=== PATIENT | male | born 1955 | race Caucasian/White ===

== ENCOUNTER 2020-07-03 09:55 | Outpatient (REF) | payer BC, SELFPAY ==
--- NOTE | 2020-07-03 | CT_ITS ---
EXAMINATION: CT SINUS WITHOUT CONTRAST CLINICAL INFORMATION: Sinonasal polyps. COMPARISON: None. TECHNIQUE: 2 mm thin axial and reformatted 2 mm sagittal and coronal images of sinuses were obtained without contrast. This CT examination was performed using dose optimization techniques as appropriate, variously including the following: *Automated exposure control *Adjustment of mA and/or kV according to patient size (this includes techniques or standardized protocols for targeted exams where dose is matched to indication/reason for exam; i.e. extremities or head) *Use of iterative reconstruction technique DLP: 120 mGy-cm. FINDINGS: There is diffuse mucoperiosteal thickening involving bilateral frontal, ethmoid, sphenoid and maxillary sinuses. Bilateral ostiomeatal complexes are patent in spite of mild mucoperiosteal thickening. The frontoethmoidal recesses are widely patent as well. The bony sinus ledbetter are intact. The cribriform plate and lamina papyracea are normal. The bony orbits, optic globe and optic space bilaterally appears normal. NASAL CAVITY/NASOPHARYNX: The nasal cavity is clear. There is mild deviation of nasal to the right without bony spur. The turbinates are symmetrical. The nasopharynx is symmetric. ADDITIONAL RELEVANT FINDINGS: No periapical disease is seen. Bilateral TM joints are symmetrical and normal. The mastoid sinuses are well aerated and clear. No abnormality seen in the external auditory canal. No acute intracranial process seen on this limited exam. CT/CT sinus wo con IMPRESSION: Chronic pansinusitis without bony involvement. The nasal cavity area is widely patent in spite of mild deviation of nasal septum to the left with a tiny bony spur. The turbinates are symmetrical.
== END 2020-07-03 09:56 | disposition home or self-care (01) ==
LOC: HO.CT 09:55
PROVIDERS: PCP Internal Medicine; Visit Provider Otolaryngology
DX: J33.9 Nasal polyp, unspecified (principal)
CPT/HCPCS: 70486

== ENCOUNTER 2021-03-04 10:19 | Outpatient (REF) | payer BC, SELFPAY ==
[2021-03-04 10:24] LABS: MANUAL DIFF FLAG NO
[2021-03-04 10:56] LABS: Basophils Absolute Auto 0.1 X10*3/uL (0.0-0.2); Basophils Percent Auto 0.8 % (0-2); Eosinophils Absolute Auto 0.2 X10*3/uL (0.0-0.4); Eosinophils Percent Auto 1.8 % (0-4); Hematocrit 49.3 % (42-52); Hemoglobin 16.6 g/dl (14.0-18.0); Imm Gran Abs Auto 0.04 X10*3/uL (0.00-0.03); Imm Gran Pct Auto 0.5 % (0.0-0.4); Lymphocytes Absolute Auto 3.2 X10*3/uL (1.2-4.9); Lymphocytes Percent Auto 38.2 % (20-40); Mean Corpuscular HGB Conc 33.7 g/dl (31.0-36.0); Mean Corpuscular Hemoglobin 29.9 pg (27.0-33.0); Mean Corpuscular Volume 88.8 fL (80-98); Mean Platelet Volume 8.6 fL (9.4-12.4); Monocytes Absolute Auto 0.6 X10*3/uL (0.1-1.2); Neutrophils Absolute Auto 4.3 X10*3/uL (2.0-8.3); Neutrophils Percent Auto 51.7 % (45-73); Platelet Count 289 X10*3/uL (160-400); Red Blood Count 5.55 X10*6/uL (4.60-5.80); Red Cell Distribution Width 13.1 % (11.0-16.0); White Blood Count 8.4 X10*3/uL (4.8-10.8)
[2021-03-04 11:17] LABS: Appearance Urine CLEAR; Color Urine YELLOW; Glucose Urine UA NEG (NEG); Leukocyte Esterase Urine NEG (NEG); Nitrite Urine NEG (NEG); PH 6.5 (5.0-8.0); Urine Blood NEG (NEG); Urine Ketones NEG (NEG); Urine Protein NEG (NEG-TRACE)
[2021-03-04 11:49] LABS: Alanine Aminotransferase 47 U/L (0-40); Albumin Level 4.4 g/dL (3.5-5.0); Alkaline Phosphatase 70 U/L (39-117); Anion Gap 12 (12-20); Aspartate Amino Transferase 22 U/L (5-37); Bilirubin Total 0.5 mg/dL (0.0-1.0); Blood Urea Nitrogen 21 mg/dL (9-16); Calcium 8.9 mg/dL (8.4-10.2); Carbon Dioxide 25 mmol/L (22-29); Chloride 109 mmol/L (96-108); Cholesterol 182 mg/dL; Estimated Glomerular Filt Rate > 60; Glucose Fasting 95 mg/dL (60-99); HDL Cholesterol 39 mg/dL; LDL Cholesterol Calculated 112 mg/dl; Potassium 4.3 mmol/L (3.3-5.1); Sodium 142 mmol/L (135-145); Total Protein 6.5 g/dL (6.5-8.0); Triglycerides 157 mg/dL
[2021-03-04 11:50] LABS: Estimated Average Glucose 105 mg/dL; Hemoglobin A1c % 5.3 %
[2021-03-04 11:58] LABS: Microalbum/Creatinine Ratio Ur 7.9 ug/mg cr
[2021-03-04 12:52] LABS: Reflex LDLD? No
== END 2021-03-04 10:20 | disposition home or self-care (01) ==
LOC: HO.LNP 10:19
PROVIDERS: Visit Provider Internal Medicine
DX: Z00.00 Encounter for general adult medical examination without abnormal findings (principal); R73.03 Prediabetes; E78.00 Pure hypercholesterolemia, unspecified
CPT/HCPCS: 80053; 80061; 81003; 82043; 83036; 85025

== ENCOUNTER 2021-07-16 10:23 | Day surgery (SDC) | payer BC, SELFPAY ==
[2021-07-11 10:03] VITALS: BMI 31.6
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
[2021-07-16 10:15] VITALS: BP 164/97; PULSE 82; RESP 18; TEMP 36.6; O2SAT 96
[2021-07-16 10:33] VITALS: BP 164/96; PULSE 82; RESP 18; TEMP 36.6; O2SAT 96
[2021-07-16] MEDS: Lactated Ringers 1,000 ML 100 ML IVCONT (10:56)
[2021-07-16 13:48] VITALS: BP 110/72; PULSE 61; RESP 12; TEMP 37.3; O2SAT 96
--- NOTE | 2021-07-16 13:52 | P.BOP_ITS ---
Brief Operative Note Date of Service: 07/16/21 Pre-op diagnosis: Screening Post-op diagnosis: other (Colon polyps) Procedure: Colonoscopy to the cecum with biopsy and removal of polyps Surgeon: Azam Ulloa Anesthesia: MAC Was an Telecommunications Line Installer used for this Procedure?: No Estimated blood loss (mL): 2.0 Pathology: other (A. Polyps at 20cm) Condition: stable Disposition: PACU
[2021-07-16 14:03] VITALS: BP 146/83; PULSE 61; RESP 18; TEMP 36.7; O2SAT 98
--- NOTE | 2021-07-16 14:43 | OP_ITS ---
SURGEON: Azam Ulloa MD INDICATIONS: The patient presents for evaluation of personal history of tubular adenoma of the colon and colorectal cancer screening. Full consent was obtained from him for that, including risks of bleeding and perforation. PREOPERATIVE DIAGNOSIS: POSTOPERATIVE DIAGNOSIS: PROCEDURE PERFORMED: Colonoscopy to cecum with biopsy and removal of polyps. ESTIMATED BLOOD LOSS: COMPLICATIONS: ANESTHESIA: Monitored anesthesia care. ASSISTANTS: SPECIMENS: PREOPERATIVE DIAGNOSES: Colorectal cancer screening and personal history of tubular adenoma of the colon. POSTOPERATIVE DIAGNOSES: Colorectal cancer screening and personal history of tubular adenoma of the colon, small colon polyps, diverticulosis and internal hemorrhoids. DESCRIPTION OF PROCEDURE: The patient was placed in the left lateral decubitus position. The digital rectal exam revealed no abnormalities. The Olympus video pediatric colonoscope was entered into the rectum and advanced easily to the cecum. Once in the cecum I did identify normal-appearing cecal pouch with appendiceal orifice and a normal-appearing ileocecal valve. The entire cecum and ileocecal valve appeared normal. The appendiceal orifice appeared normal. The scope was slowly withdrawn assessing all mucosal surfaces carefully. Preparation was excellent. At 20 cm, were several flat approximately 3-5 mm probable hyperplastic polyps, which were all biopsied and completely removed with cold biopsy forceps. I did not visualize any other polyps, colitis, or angiodysplasia. There was a mild amount of sigmoid diverticulosis. In the rectum, scope was retroflexed visualizing some small internal hemorrhoids, but no other pathology. The rectal mucosa appeared normal. The scope was straightened and withdrawn from the patient. He tolerated the procedure well and was returned to the recovery area in stable condition. IMPRESSION: 1. Small colon polyps, status post biopsy removal. 2. Diverticulosis. 3. Internal hemorrhoids. PLAN: The results of the biopsies will be checked. If these are tubular adenoma, I would recommend a followup colonoscopy in 5 years. If they are all hyperplastic, I would then recommend a followup colonoscopy in 10 years given that his colonoscopy in 2010 and 2015 were negative for adenomas and there was no family history of colon cancer. He did have a small tubular adenoma removed in 2005, but again if these are hyperplastic, I would recommend a followup colonoscopy in 10 years rather than 5 years. MD KIET Mcduffie/INES / [id number]
== END 2021-07-16 14:31 | disposition home or self-care (01) ==
PROVIDERS: PCP Internal Medicine; Visit Provider Internal Medicine
PROC: 0DJD8ZZ Inspection of Lower Intestinal Tract, Via Natural or Artificial Opening Endoscopic (ICD-10-PCS; CPT 45378; principal; 2021-07-16 11:50)
DX: Z12.11 Encounter for screening for malignant neoplasm of colon (principal); Z86.010 Personal history of colon polyps; K63.5 Polyp of colon; K57.30 Diverticulosis of large intestine without perforation or abscess without bleeding; K64.8 Other hemorrhoids; E78.00 Pure hypercholesterolemia, unspecified; F32.9 Major depressive disorder, single episode, unspecified; Z79.899 Other long term (current) drug therapy; Z87.891 Personal history of nicotine dependence
CPT/HCPCS: 45380; 88305

== ENCOUNTER 2022-01-16 12:35 | Outpatient (REF) | payer MEDICARE, OTHER, SELFPAY ==
--- NOTE | ~2022-01-16 | XR_ITS ---
EXAMINATION: XR CHEST 2 VIEWS CLINICAL INFORMATION: Cough. COMPARISON: Radiographs dated 05/19/2019. TECHNIQUE: Frontal and lateral views of the chest were obtained. FINDINGS: The heart, great vessels, pulmonary vasculature and mediastinum are normal. There is mild elevation of the right hemidiaphragm. The lungs show no focal infiltrate, effusion or pneumothorax. There is no acute osseous abnormality. XR/XR chest 2V IMPRESSION: No active cardiopulmonary disease.
== END 2022-01-16 12:36 | disposition home or self-care (01) ==
LOC: HO.XRAY 12:35
PROVIDERS: PCP Internal Medicine; Visit Provider Internal Medicine
DX: R05.3 Chronic cough (principal)
CPT/HCPCS: 71046

== ENCOUNTER → 2022-01-23 11:11 | Outpatient (REF) | payer MEDICARE, OTHER, SELFPAY ==
--- NOTE | 2022-01-23 | HM_ITS ---
TEST PERFORMED: Cardiac event monitoring. ENROLLMENT PERIOD: 01/23/2022, to 02/22/2022; 30 days. REQUESTING PHYSICIAN: Dr. Davis REASON FOR TESTING: Palpitations. FINDINGS: In the above monitoring period, the underlying rhythm was sinus. Rates ranged from 51 to 96 beats per minute. There is evidence of premature atrial as well as ventricular contractions, isolated. No significant runs noted. Several symptoms documented including shortness of breath, racing, fluttering, dizziness at different times. They correlate with PACs and PVCs. CONCLUSION: Study positive for PACs and PVCs and patient's symptoms correlate with the same. Herminio Hunter MD HS/MARIPOSAL / [id number] MTDD
== END ==
LOC: HO.CARD 11:11
PROVIDERS: PCP Internal Medicine; Visit Provider Internal Medicine
DX: R00.2 Palpitations (principal)
CPT/HCPCS: 93270

== ENCOUNTER 2022-03-10 11:34 | Outpatient (REF) | payer MEDICARE, OTHER, SELFPAY ==
[2022-03-10 11:39] LABS: MANUAL DIFF FLAG NO
[2022-03-10 12:09] LABS: Basophils Absolute Auto 0.1 X10*3/uL (0.0-0.2); Basophils Percent Auto 0.8 % (0-2); Eosinophils Absolute Auto 0.2 X10*3/uL (0.0-0.4); Eosinophils Percent Auto 2.2 % (0-4); Hematocrit 48.8 % (42.0-52.0); Hemoglobin 16.3 g/dl (14.0-18.0); Imm Gran Abs Auto 0.07 X10*3/uL (0.00-0.03); Imm Gran Pct Auto 0.8 % (0.0-0.4); Lymphocytes Absolute Auto 3.2 X10*3/uL (1.2-4.9); Lymphocytes Percent Auto 37.6 % (20-40); Mean Corpuscular HGB Conc 33.4 g/dl (31.0-36.0); Mean Corpuscular Hemoglobin 29.6 pg (27.0-33.0); Mean Corpuscular Volume 88.7 fL (80.0-98.0); Mean Platelet Volume 8.6 fL (9.4-12.4); Monocytes Absolute Auto 0.6 X10*3/uL (0.1-1.2); Monocytes Percent Auto 7.3 % (2-11); Neutrophils Absolute Auto 4.3 x10*3/uL (2.0-8.3); Neutrophils Percent Auto 51.3 % (45-73); Platelet Count 269 X10*3/uL (160-400); Red Cell Distribution Width 13.2 % (11.0-16.0); White Blood Count 8.5 X10*3/uL (4.8-10.8)
[2022-03-10 12:15] LABS: Appearance Urine Clear; Color Urine Yellow; Glucose Urine UA Negative (Negative); Leukocyte Esterase Urine Trace (Negative); Nitrite Urine Negative (Negative); PH 6.5 (5.0-9.0); UMIC TRIGGER UA YES; Urine Blood Negative (Negative); Urine Ketones Negative (Negative); Urine Protein Negative (Neg-Trace)
[2022-03-10 12:18] LABS: Bacteria Urine None Seen (None Seen); Hyaline Casts Urine 0-2 /LPF (0-2); RBC Urine 0-2 /HPF (0-2); Squamous Epithelial Cell Urine 0-2 /HPF (0-2); WBC Urine 0-5 /HPF (0-5)
[2022-03-10 12:23] LABS: Estimated Average Glucose 105 mg/dL; Hemoglobin A1c % 5.3 %
[2022-03-10 12:35] LABS: Alanine Aminotransferase 35 U/L (0-40); Albumin Level 4.3 g/dL (3.5-5.0); Alkaline Phosphatase 67 U/L (39-117); Anion Gap 14 (12-20); Aspartate Amino Transferase 20 U/L (5-37); Bilirubin Total 0.5 mg/dL (0.0-1.0); Blood Urea Nitrogen 22 mg/dL (9-16); Calcium 8.9 mg/dL (8.4-10.2); Carbon Dioxide 26 mmol/L (22-29); Chloride 108 mmol/L (96-108); Cholesterol 176 mg/dL; Estimated Glomerular Filt Rate > 60; Glucose Fasting 99 mg/dL (60-99); HDL Cholesterol 37 mg/dL; LDL Cholesterol Calculated 106 mg/dl; Potassium 4.2 mmol/L (3.3-5.1); Sodium 144 mmol/L (135-145); Total Protein 6.4 g/dL (6.5-8.0); Triglycerides 167 mg/dL
[2022-03-10 12:40] LABS: Microalbum/Creatinine Ratio Ur 8.6 ug/mg cr
[2022-03-10 12:50] LABS: PSA,Total (Free>4and<10) 4.06 ng/mL (0.00-4.00)
[2022-03-11 11:07] LABS: Free Prostate Spec Ag 0.9 ng/mL; Percent Free Prostate Spec Ag 20 % (calc) (>25); Prostate Specific Ag Total 4.4 ng/mL (< OR = 4.0)
== END 2022-03-10 11:35 | disposition home or self-care (01) ==
LOC: HO.LNP 11:34
PROVIDERS: Visit Provider Internal Medicine
DX: Z12.5 Encounter for screening for malignant neoplasm of prostate (principal); E78.00 Pure hypercholesterolemia, unspecified; R73.03 Prediabetes
CPT/HCPCS: 80053; 80061; 81001; 81003; 82043; 83036; 84153; 84154; 85025

== ENCOUNTER 2022-04-13 10:52 | Outpatient (REF) | payer MEDICARE, OTHER, SELFPAY ==
[2022-04-13 12:21] LABS: PSA,Total (Free>4and<10) 2.88 ng/mL (0.00-4.00)
== END 2022-04-13 10:53 | disposition home or self-care (01) ==
LOC: HO.LNP 10:52
PROVIDERS: Visit Provider Internal Medicine
DX: Z12.5 Encounter for screening for malignant neoplasm of prostate (principal); R97.20 Elevated prostate specific antigen [PSA]
CPT/HCPCS: 84153

== ENCOUNTER 2022-04-29 12:41 | Outpatient (REF) | payer MEDICARE, OTHER, SELFPAY ==
--- NOTE | ~2022-04-29 | XR_ITS ---
EXAMINATION: XR CHEST CLINICAL INFORMATION: Short of breath COMPARISON: 01/16/2022 TECHNIQUE: 2 views of the chest were obtained. FINDINGS: The lungs are well expanded. There is no focal consolidation, edema, or effusion. No pneumothorax. The cardiomediastinal silhouette is within normal limits. No acute osseous abnormality. XR/XR chest 2V IMPRESSION: Clear lungs.
== END 2022-04-29 12:42 | disposition home or self-care (01) ==
LOC: HO.XRAY 12:41
PROVIDERS: PCP Internal Medicine; Visit Provider Internal Medicine
DX: R06.02 Shortness of breath (principal)
CPT/HCPCS: 71046

== ENCOUNTER → 2022-05-11 09:27 | Outpatient (REF) | payer MEDICARE, OTHER, SELFPAY ==
--- NOTE | 2022-05-11 09:30 | CA_ITS ---
Transthoracic Echocardiogram Patient (Last, First, Middle): Salvatore Blum G Gender: Male Date of : 1955 Age: 67 Procedure Date: 05/11/2022 Procedure Type: Transthoracic Echocardiogram Location: OP Height: 180.34 cm Weight: 99.79 kg BSA: 2.20 m2 Heart Rate: bpm BP: 118 / 75 mmHg Coverstitch Elastic Attacher: EBONY Referring MD: Temo Davis MD Symptoms: R06.02 SOB Study Quality: Fair ECG Rhythm: Sinus Conclusions: - The left ventricular systolic function is normal. The calculated ejection fraction is 67% by biplane method. - There is mild calcification of the aortic valve. - No obvious valvular pathology seen on this study. Findings Left Ventricle Normal left ventricular cavity size. There is mildly increased left ventricular wall thickness. The left ventricular systolic function is normal. The calculated ejection fraction is 67% by biplane method. There is no evidence of regional wall motion abnormalities. Diastolic function is normal for age. LV peak GLS -18.6%. Right Ventricle Normal right ventricular cavity size and systolic function. Atria Both atria are normal in size. Aortic Valve The aortic valve was not well visualized. There is mild calcification of the aortic valve. There is no aortic valve stenosis. There is no aortic valve regurgitation. Mitral Valve The mitral valve appears normal. There is no mitral valve regurgitation. There is no mitral valve stenosis. Pulmonic Valve The pulmonic valve is likely normal. Tricuspid Valve There is trace tricuspid valve regurgitation. There is no evidence of pulmonary hypertension. Great Vessels The asc aorta is normal in size. Venous The inferior vena cava is normal in size and collapses greater than 50% with inspiration. Pericardium/Pleural There is no evidence of pericardial effusion. Prior Study Comparison No change compared to prior study dated: 03/04/2016. Recommendations, Care & Conclusions No obvious valvular pathology seen on this study. Measurements 2D Linear Measurements IVSd: 1.21 0.6-0.9/0.6-1.0 cm LVIDd: 4.91 3.9-5.3/4.2-5.9 cm LVIDd Index: 2.23 2.4-3.2/2.2-3.1 cm/m2 LVIDs: 2.69 2.0-3.6 cm LVPWd: 1.24 0.7-1.1 cm LA Diam: 3.40 2.7-3.8/3.0-4.0 cm LAIDs Index: 1.55 1.5-2.3 cm/m2 LV Mass: 291.53 67-162/88-224 g LV Mass Index: 132.51 43-95/49-115 g/m2 LVOT Diam: 2.20 3.0+(-)1.3 cm 2D Systolic Function EF 4C: 63.20 >55% EF 2C: 71.00 >55% EF BiP: 67.40 >55% Mitral Valve MV Pk E: 0.72 MV PK A: 0.78 MV Decel Time: 242.00 E/A: 0.90 E'Lateral: 6.42 E'Medial: 6.64 E/E' Med: 10.80 E/E' Lat: 11.20 PHT: 71.00 MVA PHT: 3.10 Decel [place]: 2.96 Aortic Valve AoV Pk Arturo: 1.64 AoV Mn Arturo: 1.12 AoV VTI: 0.33 AoV Pk Grad: 11.00 Aov Mn Grad: 6.00 RAYMOND Cont.VTI: 2.66 LVOT LVOT Pk Arturo: 0.95 LVOT Mn Arturo: 0.63 LVOT VTI: 0.23 LVOT Pk Grad: 4.00 LVOT Mn Grad: 2.00 LVOT Diam: 2.20 LVOT Area: 3.80 Diastolic Function MV Pk E: 0.72 MV Pk A: 0.78 E/A: 0.90 E'Medial: 6.64 E/E' Med: 10.80 E' Laterial: 6.42 E/E' Lat: 11.20 Right Ventricle TAPSE (mm): 26.30 TVS' Arturo: 19.60 Tricuspid Valve TR Pk Arturo: 1.24 TR Pk Grad: 6.00 RA Press: 3.00 RVSP: 9.00 Great Vessels Aorta Sinus of Valsalva: 3.66 2.0-3.[address] [place]: 3.19 1.7-3.4 cm Ao Asc: 3.50 2.1-3.4 cm Updated in Other Vendor System with Status of Final Herminio Hunter MD electronically signed on 05/11/2022 5:01:25 PM with status of Final
== END ==
LOC: HO.CARD 09:27
PROVIDERS: Visit Provider Internal Medicine
DX: R06.02 Shortness of breath (principal)
CPT/HCPCS: 93306; 93356

== ENCOUNTER → 2022-05-27 09:19 | Outpatient (BNVA) | payer MEDICARE, OTHER, SELFPAY | PROVIDERS: PCP Internal Medicine; Visit Provider Internal Medicine Pulmonary Disease | DX: R06.00 Dyspnea, unspecified (principal); G47.33 Obstructive sleep apnea (adult) (pediatric) | CPT/HCPCS: 99202 ==

== ENCOUNTER → 2022-06-02 08:42 | Outpatient (REF) | payer MEDICARE, OTHER, SELFPAY | LOC: HO.SL 08:42 | PROVIDERS: PCP Internal Medicine; Visit Provider Internal Medicine Pulmonary Disease | DX: G47.33 Obstructive sleep apnea (adult) (pediatric) (principal) | CPT/HCPCS: 95806 ==

== ENCOUNTER 2022-06-16 07:50 | Outpatient (REF) | payer MEDICARE, OTHER, SELFPAY ==
--- NOTE | 2022-06-16 13:54 | PFT_ITS ---
INDICATION: Dyspnea. SPIROMETRY: FEV1 to FVC 86% with an FEV1 of 4.48 L, which is 124% predicted; FVC of 5.19 L, which is 106% predicted. No significant response to bronchodilators noted. Maximum voluntary ventilation 134% predicted. LUNG VOLUMES: Total lung capacity 103% predicted with expiratory reserve volume of 49% predicted. DIFFUSION CAPACITY: DLCO 84% predicted. COMPARISONS: None. INTERPRETATION: No obstructive nor restrictive ventilatory defects identified. No significant response to bronchodilators noted and normal maximum voluntary ventilation. Lung volumes are normal except for decrease in the expiratory reserve volume secondary to an elevated BMI. Normal diffusion capacity. No clear explanation for the patient's dyspnea based on these PFTs. Clinical correlation warranted. Mina Torres MD MR/MODLorena / [id number]
== END 2022-06-16 07:51 | disposition home or self-care (01) ==
LOC: HO.RESP 07:50
PROVIDERS: PCP Internal Medicine; Visit Provider Internal Medicine Pulmonary Disease
DX: R06.00 Dyspnea, unspecified (principal); G47.33 Obstructive sleep apnea (adult) (pediatric)
CPT/HCPCS: 94060; 94727; 94729; 99212

== ENCOUNTER 2022-07-24 10:51 | Outpatient (REF) | payer MEDICARE, OTHER, SELFPAY ==
[2022-07-24 11:50] LABS: PSA,Total (Free>4and<10) 3.27 ng/mL (0.00-4.00)
== END 2022-07-24 10:52 | disposition home or self-care (01) ==
LOC: HO.LNP 10:51
PROVIDERS: Visit Provider Internal Medicine
DX: N40.0 Benign prostatic hyperplasia without lower urinary tract symptoms (principal); Z12.5 Encounter for screening for malignant neoplasm of prostate
CPT/HCPCS: 84153

== ENCOUNTER → 2022-09-09 09:08 | Outpatient (BNVA) | payer MEDICARE, OTHER, SELFPAY | PROVIDERS: PCP Internal Medicine; Visit Provider Internal Medicine Pulmonary Disease | DX: G47.33 Obstructive sleep apnea (adult) (pediatric) (principal) | CPT/HCPCS: 99212 ==

== ENCOUNTER 2023-03-18 08:56 | Outpatient (AMB) | payer MEDICARE, OTHER, SELFPAY ==
[2023-03-18 08:58] VITALS: BP 117/67; PULSE 58; O2SAT 94; BMI 31.9
--- NOTE | 2023-03-18 08:58 | MHC.OFFVIS ---
Intake Vital Signs 03/18/23 08:58 Height 5 ft 10 in Weight 222 lb 10.67 oz BMI 31.9 BP 117/67 Blood Pressure Location Lt brachial Position Sitting Pulse 58 Pulse Source Doppler Pulse Oximetry (%) 94 Oxygen Delivery Method Room Air Intake Visit Reasons: COPD Allergies Halothane Allergy (Unknown, Uncoded 02/20/16 00:00) cardiac arrest HPI COPD HPI Details 89year-old gentleman, former 20 pack-year smoker, quit 35 years prior referred for evaluation of intermittent episodes of chest tightness and subjective dyspnea. Patient states that he walks 2 miles every day with no dyspnea on exertion. He complains of chest tightness and subjective dyspnea particularly in the evening. His main concern is early fatigued, daytime sleepiness, and poor quality sleep. He states that his sleep for about 10 hours, however he wakes up feeling tired. He has been observed to snore heavily. After the last office visit he has started to use CPAP with significant improvement in his sleep quality. [facility] Medical History (Updated 05/27/22 @ 09:45 by Dean De La Fuente MD) Cardiac arrest Depression Elevated cholesterol Surgical History H/O colonoscopy Social History Patient Tobacco Use Status: Former Tobacco user Quit Date: 1986 Review of Systems Const Denies daytime sleepiness, Denies excessive sweating, Denies fatigue, Denies fever(s), Denies lethargy, Denies malaise, Denies night sweats, Denies snoring and Denies weight loss Eyes Denies blurry vision and Denies itchy eyes ENT Denies nasal congestion, Denies post nasal drip, Denies sinus pain, Denies sinus pressure and Denies other ( Thrush) Card Denies chest pain, Denies pedal edema, Denies dyspnea, Denies orthopnea and Denies paroxysmal nocturnal dyspnea Resp Denies cough, Denies hemoptysis, Denies excessive phlegm production, Denies dyspnea, Denies snoring and Denies wheezing GI Denies abdominal pain and Denies heartburn Musc Denies myalgias, Denies arthralgias and Denies joint swelling Skin/Breast Denies rash Neuro Denies memory loss and Denies seizure-like activity Psych Denies abnormal sleep pattern, Denies anxiety and Denies memory loss Endo Denies excessive sweating, Denies fatigue and Denies heat intolerance Juan/Lymph Denies easy bruising Aller/Immun Denies itchy eyes, Denies seasonal rhinorrhea and Denies wheezing Physical Exam Vital Signs: Last Vital Signs Pulse 58 03/18/23 08:58 BP 117/67 03/18/23 08:58 Pulse Ox 94 03/18/23 08:58 Oxygen Delivery Method Room Air 03/18/23 08:58 BMI result Body Mass Index 31.9 Const General: no acute distress and alert Nutritional Appearance: not obese Orientation/consciousness: Other orientation findings ( oriented) HEENT Head: Yes atraumatic Eyes General: appearance normal, both eyes and all related structures Sclerae: sclerae normal EOM: EOMs intact bilaterally Neck Neck: Yes supple Lymphatic: no lymphadenopathy noted Resp Effort & Inspection: normal respiratory effort and no use of accessory muscles Auscultation: clear to auscultation bilaterally Cardio Rate: regular rate Rhythm: regular rhythm Heart sounds: no gallops, no murmurs and no rubs Skin General skin exam: other ( warm) Extrem General: No clubbing, No cyanosis and No edema Assessment & Plan Assessment & Plan (1) CAMILLA (obstructive sleep apnea): Code(s): G47.33 - Obstructive sleep apnea (adult) (pediatric) Plan: Reasonable control on current CPAP therapy. Continue current CPAP therapy. Coding Level of Care Code Est Pt Level 3 (76618) Diagnoses CAMILLA (obstructive sleep apnea) G47.33
== END 2023-03-18 09:45 | disposition home or self-care (01) ==
PROVIDERS: PCP Internal Medicine; Visit Provider Internal Medicine Pulmonary Disease
DX: G47.33 Obstructive sleep apnea (adult) (pediatric) (principal)
CPT/HCPCS: 99213

== ENCOUNTER → 2023-03-18 08:56 | Outpatient (BNVA) | payer MEDICARE, OTHER, SELFPAY | PROVIDERS: PCP Internal Medicine; Visit Provider Internal Medicine Pulmonary Disease | DX: G47.33 Obstructive sleep apnea (adult) (pediatric) (principal); R06.00 Dyspnea, unspecified | CPT/HCPCS: 99212 ==

== ENCOUNTER 2023-04-19 11:40 | Outpatient (REF) | payer MEDICARE, OTHER, SELFPAY ==
[2023-04-19 11:47] LABS: MANUAL DIFF FLAG NO
[2023-04-19 12:18] LABS: Basophils Absolute Auto 0.1 X10*3/uL (0.0-0.2); Eosinophils Absolute Auto 0.2 X10*3/uL (0.0-0.4); Eosinophils Percent Auto 2.3 % (0-4); Hematocrit 48.6 % (42.0-52.0); Hemoglobin 16.2 g/dl (14.0-18.0); Imm Gran Abs Auto 0.05 X10*3/uL (0.00-0.03); Imm Gran Pct Auto 0.7 % (0.0-0.4); Lymphocytes Percent Auto 40.5 % (20-40); Mean Corpuscular HGB Conc 33.3 g/dl (31.0-36.0); Mean Corpuscular Hemoglobin 29.6 pg (27.0-33.0); Mean Corpuscular Volume 88.7 fL (80.0-98.0); Mean Platelet Volume 8.6 fL (9.4-12.4); Monocytes Absolute Auto 0.6 X10*3/uL (0.1-1.2); Monocytes Percent Auto 8.3 % (2-11); Neutrophils Absolute Auto 3.5 x10*3/uL (2.0-8.3); Neutrophils Percent Auto 47.2 % (45-73); Platelet Count 281 X10*3/uL (160-400); Red Blood Count 5.48 X10*6/uL (4.60-5.80); Red Cell Distribution Width 13.3 % (11.0-16.0); White Blood Count 7.3 X10*3/uL (4.8-10.8)
[2023-04-19 12:21] LABS: Appearance Urine Clear; Color Urine Yellow; Glucose Urine UA Negative (Negative); Leukocyte Esterase Urine Negative (Negative); Nitrite Urine Negative (Negative); Urine Blood Negative (Negative); Urine Ketones Negative (Negative); Urine Protein Negative (Neg-Trace)
[2023-04-19 12:28] LABS: Bacteria Urine None Seen (None Seen); Hyaline Casts Urine 0-2 /LPF (0-2); RBC Urine 0-2 /HPF (0-2); Squamous Epithelial Cell Urine 0-2 /HPF (0-2); WBC Urine 0-5 /HPF (0-5)
[2023-04-19 12:30] LABS: Estimated Average Glucose 105 mg/dL; Hemoglobin A1c % 5.3 % (<6.0)
[2023-04-19 12:49] LABS: Alanine Aminotransferase 34 U/L (0-40); Albumin Level 4.2 g/dL (3.5-5.0); Alkaline Phosphatase 57 U/L (39-117); Anion Gap 14 (12-20); Aspartate Amino Transferase 21 U/L (5-37); Bilirubin Total 0.5 mg/dL (0.0-1.0); Blood Urea Nitrogen 19 mg/dL (9-16); Calcium 8.9 mg/dL (8.4-10.2); Carbon Dioxide 24 mmol/L (22-29); Chloride 107 mmol/L (96-108); Cholesterol 178 mg/dL (<200); Estimated Glomerular Filt Rate > 60; Glucose Fasting 100 mg/dL (60-99); HDL Cholesterol 38 mg/dL (>40); LDL Cholesterol Calculated 109 mg/dL (<100); Sodium 141 mmol/L (135-145); Total Protein 6.7 g/dL (6.5-8.0); Triglycerides 159 mg/dL (<150)
[2023-04-19 12:51] LABS: PSA,Total (Free>4and<10) 3.77 ng/mL (0.00-4.00)
[2023-04-19 12:56] LABS: Creatinine Urine 149.63 mg/dL
== END 2023-04-19 11:41 | disposition home or self-care (01) ==
LOC: HO.LNP 11:40
PROVIDERS: Visit Provider Internal Medicine
DX: Z12.5 Encounter for screening for malignant neoplasm of prostate (principal); R73.03 Prediabetes; E78.00 Pure hypercholesterolemia, unspecified; I10 Essential (primary) hypertension
CPT/HCPCS: 80053; 80061; 81001; 82043; 82570; 83036; 84153; 85025

== ENCOUNTER 2023-06-24 13:28 | Outpatient (REF) | payer MEDICARE, OTHER, SELFPAY ==
--- NOTE | ~2023-06-24 | XR_ITS ---
EXAMINATION: XR CHEST CLINICAL INFORMATION: Bronchitis COMPARISON: 04/29/2022 TECHNIQUE: 2 views of the chest were obtained. FINDINGS: No significant abnormality is noted involving the heart, lungs, mediastinum, bony thorax or soft tissues. XR/XR chest 2V IMPRESSION: Unremarkable examination.
[2023-06-24 14:23] LABS: Influenza A PCR POSITIVE (Negative); Influenza B PCR NEGATIVE (Negative); Resp Syncy Virus RNA Qual PCR NEGATIVE (Negative); SARS COV2 PCR INHOUSE NEGATIVE (Negative)
== END 2023-06-24 13:29 | disposition home or self-care (01) ==
LOC: HO.XRAY 13:28
PROVIDERS: PCP Internal Medicine; Visit Provider Internal Medicine
DX: J40 Bronchitis, not specified as acute or chronic (principal); Z11.52 Encounter for screening for COVID-19; Z20.822 Contact with and (suspected) exposure to COVID-19
CPT/HCPCS: 0241U; 71046

== ENCOUNTER 2024-04-25 10:41 | Outpatient (REF) | payer MEDICARE, OTHER, SELFPAY ==
[2024-04-25 10:50] LABS: MANUAL DIFF FLAG NO
[2024-04-25 12:35] LABS: Appearance Urine Clear; Color Urine Yellow; Glucose Urine UA Negative (Negative); Leukocyte Esterase Urine Negative (Negative); Nitrite Urine Negative (Negative); Specific Gravity - Urine 1.025 (1.005-1.025); Urine Blood Negative (Negative); Urine Ketones Negative (Negative); Urine Protein Negative (Neg-Trace)
[2024-04-25 12:39] LABS: Bacteria Urine None Seen (None Seen); Hyaline Casts Urine 0-2 /LPF (0-2); RBC Urine 0-2 /HPF (0-2); Squamous Epithelial Cell Urine 0-2 /HPF (0-2); WBC Urine 0-5 /HPF (0-5)
[2024-04-25 12:42] LABS: Basophils Absolute Auto 0.1 X10*3/uL (0.0-0.2); Basophils Percent Auto 0.9 % (0-2); Eosinophils Absolute Auto 0.2 X10*3/uL (0.0-0.4); Hematocrit 49.2 % (42.0-52.0); Hemoglobin 16.7 g/dl (14.0-18.0); Imm Gran Abs Auto 0.04 X10*3/uL (0.00-0.03); Imm Gran Pct Auto 0.5 % (0.0-0.4); Lymphocytes Absolute Auto 2.9 X10*3/uL (1.2-4.9); Lymphocytes Percent Auto 37.3 % (20-40); Mean Corpuscular HGB Conc 33.9 g/dl (31.0-36.0); Mean Corpuscular Hemoglobin 30.3 pg (27.0-33.0); Mean Corpuscular Volume 89.1 fL (80.0-98.0); Mean Platelet Volume 8.7 fL (9.4-12.4); Monocytes Absolute Auto 0.6 X10*3/uL (0.1-1.2); Neutrophils Absolute Auto 3.9 x10*3/uL (2.0-8.3); Neutrophils Percent Auto 50.3 % (45-73); Platelet Count 257 X10*3/uL (160-400); Red Blood Count 5.52 X10*6/uL (4.60-5.80); Red Cell Distribution Width 13.7 % (11.0-16.0); White Blood Count 7.7 X10*3/uL (4.8-10.8)
[2024-04-25 12:45] LABS: Estimated Average Glucose 108 mg/dL; Hemoglobin A1C 150.1266 umol/L; Hemoglobin A1c % 5.4 % (<6.0); Total Hemoglobin (HGBA1C) 4280.5411 umol/L
[2024-04-25 12:51] LABS: Alanine Aminotransferase 32 U/L (0-40); Albumin Level 4.3 g/dL (3.5-5.0); Alkaline Phosphatase 67 U/L (39-117); Anion Gap 13 (12-20); Aspartate Amino Transferase 28 U/L (5-37); Bilirubin Total 0.5 mg/dL (0.0-1.0); Blood Urea Nitrogen 22 mg/dL (9-16); Calcium 9.4 mg/dL (8.4-10.2); Carbon Dioxide 25 mmol/L (22-29); Chloride 109 mmol/L (96-108); Cholesterol 169 mg/dL (<200); Estimated Glomerular Filt Rate > 60; Glucose Fasting 92 mg/dL (60-99); HDL Cholesterol 40 mg/dL (>40); LDL Cholesterol Calculated 103 mg/dL (<100); Potassium 4.1 mmol/L (3.3-5.1); Sodium 143 mmol/L (135-145); Total Protein 6.8 g/dL (6.5-8.0); Triglycerides 134 mg/dL (<150)
[2024-04-25 13:07] LABS: Prostate Specific Antigen 4.97 ng/mL (<0.05-4.0)
[2024-04-25 13:26] LABS: Creatinine Urine 123.77 mg/dL
== END 2024-04-25 10:42 | disposition home or self-care (01) ==
LOC: HO.LNP 10:41
PROVIDERS: Visit Provider Internal Medicine
DX: R73.09 Other abnormal glucose (principal); Z12.5 Encounter for screening for malignant neoplasm of prostate; E78.00 Pure hypercholesterolemia, unspecified; I10 Essential (primary) hypertension; N40.0 Benign prostatic hyperplasia without lower urinary tract symptoms
CPT/HCPCS: 80053; 80061; 81001; 82043; 82570; 83036; 84153; 85025

== ENCOUNTER 2024-05-17 07:17 | Outpatient (REF) | payer MEDICARE, OTHER, SELFPAY ==
--- NOTE | ~2024-05-17 | CT_ITS ---
EXAMINATION: CT ABDOMEN AND PELVIS WITH CONTRAST CLINICAL INFORMATION: Abdominal pain. Right flank pain. COMPARISON: None available. TECHNIQUE: Multidetector volumetric images were obtained from the superior aspect of the liver through the pubic symphysis following administration 85 mL of Omnipaque 350 intravenous contrast. Sagittal and coronal reformatted images were obtained on the technologist's workstation. Oral contrast: Yes. This CT examination was performed using dose optimization techniques as appropriate, variously including the following: *Automated exposure control *Adjustment of mA and/or kV according to patient size (this includes techniques or standardized protocols for targeted exams where dose is matched to indication/reason for exam; i.e. extremities or head) *Use of iterative reconstruction technique DLP: 619 mGy-cm. FINDINGS: LUNG BASES: The visualized lung bases are unremarkable. LIVER, GALLBLADDER, AND BILIARY TREE: The liver is normal in size and shape. Parenchymal hypoattenuation, consistent with steatosis. Superior right hepatic cyst measuring up to 2.0 cm. No additional focal hepatic lesion or biliary ductal dilatation is present. The gallbladder is unremarkable with no evidence of radiopaque gallstones, gallbladder wall thickening, or obvious pericholecystic inflammatory changes. PANCREAS: Unremarkable. SPLEEN: Unremarkable. ADRENAL GLANDS: Unremarkable. KIDNEYS AND URETERS: The kidneys are normal in size, shape, and attenuation. No hydronephrosis, hydroureter, or calculi seen. Multiple simple bilateral renal cysts. Findings are not clinically significant, and no dedicated followup imaging is recommended. No perinephric stranding. BLADDER: Unremarkable. GASTROINTESTINAL TRACT: Oral contrast reaches the rectum. Small diverticulum at the second portion of the duodenum without inflammatory change. No small or large bowel obstruction. No bowel wall thickening or inflammatory change. Unremarkable appendix. PERITONEAL CAVITY: No intra-abdominal free air or free fluid. No abscess formation. ABDOMINAL WALL: No significant hernia is appreciated. LYMPH NODES: No lymphadenopathy. VASCULAR: Unremarkable. PELVIC VISCERA: Prominent prostatomegaly with mass effect on the posterior urinary bladder. The prostate measures up to 6.6 x 6.0 x 6.7 cm. OSSEOUS STRUCTURES: Unremarkable. CT/CT abdomen pelvis w IV con IMPRESSION: 1. No acute intra-abdominal or intrapelvic findings to explain the patient's pain. 2. Hepatic steatosis. Right hepatic cyst. No additional hepatic parenchymal lesion or biliary ductal dilatation. 3. Prominent prostatomegaly with mass effect on the posterior urinary bladder. Fleischner guidelines were followed. Electronically signed by: Sarthak Garsia MD 05/18/2024 11:03 AM IRINEO RUFFIN
[2024-05-17] MEDS: Barium Sulfate Oral (Vanilla) 450 ML ORAL.SUSP 900 ML PO (10:51)
[2024-05-17] MEDS: iohexoL 350 MG/ML 100 ML INFUS..BTL 85 ML IV (10:51)
--- OUTSIDE RECORDS SUMMARY | 2024-05-23 16:14 | XMS_ITS ---
Author Organization Temo Davis MD Address [address] [place] [phone] Care Team Providers Care Cat And Dog Bather Name Role Phone Temo Davis Primary Care Provider ALLERGIES Allergen (clinical drug ingredient) Drug/Non Drug Allergy documented on EMR Reaction Allergy Type Onset Date Status hallothane (uncoded) cardiac arrest Allergy Active REASON FOR VISIT CT results per Dr Davis, Accompanied by MEDICATIONS Medication SIG (Take, Route, Frequency, Duration) Notes [...] BY MOUTH EVERY DAY for 90 Active VITAL SIGNS BMI 32.25 kg/m2 05/23/2024 Blood pressure systolic 142 mm Hg 05/23/20 24 Blood pressure diastolic 80 mm Hg 024 Height 70.5 in 05/23/2024 Weight 228 lbs 05/23/2024 Encounters Encounter Location Date Provider Diagnosis Temo Davis MD [address] [place] [phone] 05/23/2024 Temo Davis PAC (premature atrial contraction) I49.1 and Dysthymia F34.1 ASSESSMENTS Encounter Date Diagnosis Assessment Notes Treatment Notes Treatment Clinical Notes 05/23/2024 PAC (premature atrial contraction) (ICD-10 - I49.1) patient verbalized understanding of the medication and directions for use, has done well on metoprolol but makes him too sleepy 05/23/2024 Dysthymia (ICD-10 - F34.1) PLAN OF TREATMENT Medication Medication Name Sig Start Date Stop Date Notes Metoprolol Succinate ER 25 MG 1 tablet O rally Once a day for 30 days 05/23/2024 Treatment Notes Assessment Notes PAC (premature atrial contraction) patiessence nt verbalized understanding of the medication and directions for use, has done well on metoprolol but makes him too sleepy Next Appt Details Provider Name:Temo estrada, 08/18/2024 10:00:00 AM, [address] [place] [address], [address], [phone], Provider Name:Temo estrada, 04/26/2025 08:00:00 AM, [address] [place] [address], [place] [address], [place], [place], [phone], Provider Name:Temo estrada, 05/03/2025 09:30:00 AM, [address] [place] [address], [place] [address], [place], [place], [phone], Progress Notes * Examination Category Sub-Category Detail Notes General Examination GENERAL APPEARANCE: alert, w ell hydrated, in no distress HEAD: normocephalic HEART: no murmurs, rubs, ga llops , regular rate and rhythm LUNGS: no wheezes, rales, r honchi , good air movement , clear to auscultation bilaterally SKIN: good turgor
--- OUTSIDE RECORDS SUMMARY | 2024-05-23 16:14 | XMS_ITS ---
Author Organization Temo Davis MD Address [address] [place], [place] [phone] Care Team Providers Care Floral Assistant Name Role Phone Temo Davis Primary Care Provider ALLERGIES Allergen (clinical drug ingredient) Drug/Non Drug Allergy documented on EMR Reaction Allergy Type Onset Date Status hallothane (uncoded) cardiac arrest Allergy Active RESULTS Component Value Reference Range Notes Occult Blood, Stool, Guaiac Reviewed date:05/01/2024 01:32:34 PM Interpretation:Negative Performing Lab: Notes/Report: Negative Occult Blood, Stool, Guaiac Neg REASON FOR REFERRAL Reason PAC Diagnosis 1 PAC (premature atria l contraction) (I49.1) Referral Organization Temo Davis MD Referring Provider First Name Temo Referring Provider Last Name Ryan Referring Provider Speciality Internal edicine Referred Provider MARY CARRION Referred Provider Specialty Cardiology General Notes Mariluz Sauer 02:50:15 PM EST > info faxed Referral Priority Routine Referral Appointment Date 08/10/2024 Reason PSA elevation Diagnosis 1 PSA elevation (R97.2 0) Referral Organization Temo Davis MD Referring Provider First Name Temo Referring Provider Last Name Ryan Referring Provider Speciality Internal edicine Referred Provider BEVERLY BUSBY Referred Provider Specialty Urology General Notes Mariluz Sauer 02:51:23 PM EST > info faxed , Mariluz Sauer 05/23/2024 10:04:39 AM EST > info refaxed Referral Priority Routine REASON FOR VISIT review labs/ must see prostate specific antigen, Accompanied by MEDICATIONS Medication SIG (Take, Route, Frequency, Duration) Notes Start Date End Date Status ProAir HFA 108 (90 Base) MCG/ACT 2 puffs as needed Inhalation every 4 hrs for 30 days 09/18/2013 Not-Taking Escitalopram Oxalate 10 MG TAKE 1 TABLET BY MOUTH EVERY DAY for 90 Active Fenofibrate 145 MG TAKE 1 TABLET BY ONEIL TH EVERY DAY Active Tamsulosin HCl 0.4 MG TAKE 1 CAPSULE BY MOUTH EVERY DAY Active Metoprolol Succinate ER 50 MG 1 tablet Orally Once a day for 30 days 05/01/2024 Active SOCIAL HISTORY Tobacco Use: Social History Observation Description Date Details (start date - stop date) Former Smoker NA - NA Sex Assigned At : Social History Observation Description Sex Assigned At Unknown Tobacco Use/Smoking Question Answer Notes Patient is a former smoker How long has it been since y ou last smoked? > 10 years Additional Findings: Tobacco Non-User Fo rmer smoker, currently using no form of tobacco Alcohol Screen Question Answer Notes Did you have a drink containing alcohol in the p ast year? No Points 0 Interpretation Negative PROBLEMS Problem Type ICD Code Onset Dates Problem Status W/U Status Risk SNOMED Code Notes Problem PAC (premature atrial contraction) (I49.1) Active confirmed [id number] VITAL SIGNS BMI 31.54 kg/m2 05/01/2024 Blood pressure systolic 112 mm Hg 05/01/20 24 Blood pressure diastolic 70 mm Hg 024 Height 70.5 in 05/01/2024 Weight 223 lbs 05/01/2024 weight is up 2 pounds since 03-14-24 Encounters Encounter Location Date Provider Diagnosis Temo Davis MD [address] [place] [address] [address] [place] [phone] 05/01/2024 Temo Davis Pure hypercholestero lemia E78.00 ; Essential hypertension I10 ; Prostatism N40.0 ; PSA elevation R97.20 ; PAC (premature atrial contraction) I49.1 ; Prediabetes R73.09 ; Colon cancer screening Z12.11 and Depression screening Z13.31 ASSESSMENTS Encounter Date Diagnosis Assessment Notes Treatment Notes Treatment Clinical Notes 05/01/2024 Pure hypercholestero lemia (ICD-10 - E78.00) 05/01/2024 Essential hypertensi on (ICD-10 - I10) is well controlled 05/01/2024 Prostatism (ICD-10 - N40.0) 05/01/2024 PSA elevation (ICD-1 0 - R97.20) referral to urology in [facility] 05/01/2024 PAC (premature atria l contraction) (ICD-10 - I49.1) referral back to dr plata 05/01/2024 Prediabetes (ICD-10 - R73.09) stable, no need for mediction at this time 05/01/2024 Colon cancer screeni ng (ICD-10 - Z12.11) 05/01/2024 Depression screening (ICD-10 - Z13.31) PLAN OF TREATMENT Medication Medication Name Sig Start Date Stop Date Notes Valsartan-hydroCHLOROthiazid e 80-12.5 MG TAKE 1 TABLET BY MOUTH EVERY DAY Fenofibrate 145 MG TAKE 1 TABLET BY ONEIL TH EVERY DAY Tamsulosin HCl 0.4 MG TAKE 1 CAPSULE BY MOUTH EVERY DAY Metoprolol Succinate ER 50 MG 1 tablet O rally Once a day for 30 days 05/01/2024 Treatment Notes Assessment Notes Essential hypertension is well controlle d PSA elevation referral to urology in [facility] PAC (premature atrial contraction) refer ral back to dr plata Prediabnataliia stable, no need for mediction at this time Referrals Referral Date Details 08/10/2024 08/10/2024, PAC , ROMARIO CARRION PSA elevation, SHAHEED BUSBY Next Appt Details Provider Name:Temo estrada, 08/18/2024 10:00:00 AM, [address] [place] [address], [address] [place] [address], [phone], Provider Name:Temo estrada, 04/26/2025 08:00:00 AM, [address] [place] [address], Suite [facility], [place], [place], [phone], Provider Name:Temo estrada, 05/03/2025 09:30:00 AM, [address] [place] [address], [address] [place] [address], [phone], Progress Notes * Examination Category Sub-Category Detail Notes General Examination GENERAL APPEARANCE: well dev eloped, well nourished, in no acute distress HEAD: normocephalic, atrau matic EYES: pupils equal, round, reactive to light and accommodation, sclera non- icteric EARS: normal THROAT: clear NECK/THYROID: neck supple, full ra nge of motion, no cervical lymphadenopathy, no bruits HEART: regular rate and rhy thm, S1, S2 normal, no murmurs LUNGS: clear to auscultatio n bilaterally ABDOMEN: soft, nontender, non distended, bowel sounds present, normal, no organomegaly , no masses palpable NEUROLOGIC: nonfocal, motor stre ngth normal upper and lower extremities, sensory exam intact SKIN: warm and dry, no yina picious lesions EXTREMITIES: no clubbing, cyanosi s, or edema MALE GENITOURINARY: circumcised , no pen ile lesions or discharge , testes descended bilaterally , no testicular mass RECTAL EXAM: normal tone, no exte rnal hemorrhoids, no masses palpable, prostate normal, stool guaiac negative ORAL CAVITY: mucosa moist History and Physical Notes * HPI (History of Present Illness) Category Sub-Category Detail Notes Depression Screening PHQ-9 Little inte rest or pleasure in doing things: Not at all Feeling down, depressed, or hopeless: No t at all Trouble falling or staying asleep, or sl eeping too much: Not at all Feeling tired or having little energy: N ot at all Poor appetite or overeating: Not at all Feeling bad about yourself o r that you are a failure, or have let yourself or your family down: Not at all Trouble concentrating on thi ngs, such as reading the newspaper or watching television: Not at all Moving or speaking so slowly that other people could have noticed; or the opposite, being so fidgety or restless that you have been moving around a lot more than usual: Not at all Thoughts that you would be b lambert off or of hurting yourself in some way: Not at all Total Score: 0 SDOH Questions SDOH Questions In the past year have you been worried about losing housing?: No In the past year have you or any family members you live with been unable to get any of the following when it was really needed? Check all that apply:: None Fall Risk History Have you had any falls with injury in the past year?: No Have you had two or more falls in the year?: No Communication Needs Communication Needs Does the patient have a hearing impairment: No Does the patient have a vision impairmen t?: Yes ?If yes, what is the vision impairment?: Glasses Does the patient have a cognition impair ment?: No Consultation Request Notes Referral Date Referring Provider Referred Provider Not es 05/01/2024 Temo Davis HARIHARAN P AC 05/01/2024 Temo Davis JOSHUA PSA [facility] ion
--- OUTSIDE RECORDS SUMMARY | 2024-05-23 16:14 | XMS_ITS ---
Author Organization Temo Davis MD Address [address] [place], [place] [id number] Care Team Providers Care Quality Assurance Associate Name Role Phone Temo Davis Primary Care Provider [phone] RESULTS Component Value Reference Range Notes Complete Blood Count Auto Di ff Reviewed date:04/25/2024 12:46:57 PM Interpretation: Performing Lab:[facility], [address] [place] [phone] Notes/Report: White Blood Count 7.7 4.8-10.8 X10*3/uL Red Blood Count 5.52 4.60-5.80 X10*6/uL Hemoglobin 16.7 14.0-18.0 g/dl Hematocrit 49.2 42.0-52.0 % Mean Corpuscular Volume 89.1 80.0-98.0 fL Mean Corpuscular Hemoglobin 30.3 27.0-33.0 pg Mean Corpuscular HGB Conc 33.9 31.0-36.0 g/dl Red Cell Distribution Width 13.7 11.0-16.0 % Platelet Count 257 160-400 X10*3/uL Mean Platelet Volume 8.7 9.4-12.4 fL Neutrophils Percent Auto 50.3 45-73 % Imm Gran Pct Auto 0.5 0.0-0.4 % Lymphocytes Percent Auto 37.3 20-40 % Monocytes Percent Auto 8.0 2-11 % Eosinophils Percent Auto 3.0 0-4 % Basophils Percent Auto 0.9 0-2 % NRBC Pct Auto 0.0 0.0-0.2 /100WBC Neutrophils Absolute Auto 3.9 2.0-8.3 x10*3/u L Imm Gran Abs Auto 0.04 0.00-0.03 X10*3/uL Lymphocytes Absolute Auto 2.9 1.2-4.9 X10*3/u L Monocytes Absolute Auto 0.6 0.1-1.2 X10*3/uL Eosinophils Absolute Auto 0.2 0.0-0.4 X10*3/u L Basophils Absolute Auto 0.1 0.0-0.2 X10*3/uL NRBC Abs Auto 0.000 0.0-0.012 X10*3/uL Comprehensive [place]. Panel Fa st Reviewed date:04/25/2024 01:50:50 PM Interpretation: Performing Lab:[address] [phone] Notes/Report: Sodium 143 135-145 mmol/L Potassium 4.1 3.3-5.1 mmol/L Chloride 109 96-108 mmol/L Carbon Dioxide 25 22-29 mmol/L Anion Gap 13 12-20 Blood Urea Nitrogen 22 9-16 mg/dL Creatinine 0.79 0.5-1.4 mg/dL Estimated Glomerular Filt Rate > 60 Chronic Kidney Disease: Estimated GFR < 60 mL/min/1.73m2 Severe Kidney Disease: Estimated GFR < 15 mL/min/1.73m2 Glucose Fasting 92 60-99 mg/dL Calcium 9.4 8.4-10.2 mg/dL Bilirubin Total 0.5 0.0-1.0 mg/dL Aspartate Amino Transferase 28 5-37 U/L Alanine Aminotransferase 32 0-40 U/L Total Protein 6.8 6.5-8.0 g/dL Albumin Level 4.3 3.5-5.0 g/dL Alkaline Phosphatase 67 39-117 U/L Lipid Panel Reviewed date:04/25/2024 02:14:03 PM Interpretation: Performing Lab:[address] [phone] Notes/Report: Triglycerides 134 <150 mg/dL Desirable Triglyceride: less than 150 mg/dL Borderline High Triglyceride 150-199 mg/dL High Triglyceride: 200-499 mg/dL Very High Triglyceride: greater than or equal to 5OO mg/dL Cholesterol 169 <200 mg/dL Desirable Cholesterol: less than 200 mg/dL Borderline High Cholesterol: 200-239 mg/dL High Cholesterol: greater than 239 mg/dL LDL Cholesterol Calculated 103 <100 mg/dL Desirable LDL: less than 100 mg/dL Near Optimal/Above Optimal LDL: 110-129 mg/dL Borderline High LDL: 130-159 mg/dL High LDL: 160-189 mg/dL Very High LDL: greater than or equal to 190 mg/dL HDL Cholesterol 40 >40 mg/dL Desirable HDL: greater than 40 mg/dL Note: This HDL assay may give artificially low results in patients with liver disease. Microalbumin, Random Reviewed date:04/25/2024 01:55:12 PM Interpretation: Performing Lab:[address] [address] Notes/Report: Creatinine Urine 123.77 Microalbumin Urine 5.0 Microalbum/Creatinine Ratio Ur 4.0 <30 ug/mg cr Albumin/Creatinine Ratio Reference Ranges: Normal: < 30 ug/mg creatinine Microalbuminuria: 30 - 300 ug/mg creatinine Clinical Albuminuria: > 300 ug/mg creatinine Hemoglobin A1c Reviewed date:04/25/2024 12:51:01 PM Interpretation: Performing Lab:[address] [phone] Notes/Report: Hemoglobin A1c % 5.4 <6.0 % Hemoglobin A1C Reference Range Adults: 4.8 - 6.0 % Non diabetic: < 6.0 % Goal: < 7.0 % Additional Action Suggested: > 8.0 % Note: Hemoglobin A1c results are invalid for patients with abnormal amounts of HbF. Blood transfusions may impact the HbA1c concentration in the patient sample. Estimated Average Glucose 108 eAG = Estimated average glucose which is %A1C expressed as average glucose, using the formula of the N5P-Itakctm Average Glucose study (ADAG), Diabetes Care, Vol.31,#8, Jan. 2007 UA ClnCatch+Micro w/rflx Cul t Reviewed date:04/25/2024 12:48:44 PM Interpretation: Performing Lab:[facility], [address] [place] [phone] Notes/Report: Urine, Clean Catch Color Urine Yellow Appearance Urine Clear PH 7.0 5.0-9.0 Glucose Urine UA Negative Negative mg/dL Urine Blood Negative Negative Specific [place] - Urine 1.025 1.005-1.025 Urine Protein Negative Neg-Trace mg/dL Urine Ketones Negative Negative mg/dL Nitrite Urine Negative Negative Leukocyte Esterase Urine Negative Negative RBC Urine 0-2 0-2 /HPF WBC Urine 0-5 0-5 /HPF Squamous Epithelial Cell Urine 0-2 0-2 /HPF Bacteria Urine None Seen None Seen Hyaline Casts Urine 0-2 0-2 /LPF REASON FOR VISIT FASTING LABS Encounters Encounter Location Date Provider Diagnosis Temo Davis MD [address] [place] [phone] 04/25/2024 Temo Davis Prediabetes R73.09 ; Pure hypercholesterolemia E78.00 ; Essential hypertension I10 and Prostatism N40.0 ASSESSMENTS Encounter Date Diagnosis Assessment Notes Treatment Notes Treatment Clinical Notes 04/25/2024 Prediabetes (ICD-10 - R73.09) 04/25/2024 Pure hypercholestero lemia (ICD-10 - E78.00) 04/25/2024 Essential hypertensi on (ICD-10 - I10) 04/25/2024 Prostatism (ICD-10 - N40.0) PLAN OF TREATMENT Pending Test Test Name Order Date PSA,Total (Free>4and<10) 04/25/2024 Next Appt Details Provider Name:Temo estrada, 08/18/2024 10:00:00 AM, [address] [place] [address], [phone], Provider Name:Temo estrada, 04/26/2025 08:00:00 AM, [address] [place] [address], [phone], Provider Name:Temo estrada, 05/03/2025 09:30:00 AM, [address] [place] [address], [phone],
--- OUTSIDE RECORDS SUMMARY | 2024-05-23 16:15 | XMS_ITS | Patient Health Record ---
Author Organization Temo Davis MD Address [address] [place], [place] [id number] Care Team Providers Care Business Support Assistant Name Role Phone Temo Davis Primary Care Provider ALLERGIES Allergen (clinical drug ingredient) Drug/Non Drug Allergy documented on EMR Reaction Allergy Type Onset Date Status hallothane (uncoded) cardiac arrest Allergy Active RESULTS Component Value Reference Range Notes Hemoglobin A1c Reviewed date:10/25/2023 10:01:31 AM Interpretation: Performing Lab: Notes/Report: Value Hemoglobin A1c 5.7 SARS-CoV2/FLU/RSV Reviewed date:06/24/2023 05:14:03 PM Interpretation: Performing Lab:[facility], [address] [place] [phone] Notes/Report: Influenza A PCR POSITIVE Negative Influenza B PCR NEGATIVE Negative Resp Syncy Virus RNA Qual PCR NEGATIVE Negative SARS COV2 PCR INHOUSE NEGATIVE Negative All test results must be correlated with clinical findings. Negative results do not preclude SARS-CoV2, influenza A virus, influenza B virus and/or RSV infection and should not be used as the sole basis for treatment or other patient management decisions. Negative results must be combined with clinical observations, patient history, and epidemiological information. This test has not been evaluated for monitoring treatment of infection. This test has been authorized by the FDA under an Emergency Use Authorization (EUA) for use by authorized laboratories. Testing performed on the [employer] GeneXpert utilizing real-time RT-PCR. All SARS CoV2 and positive influenza A/B results are reported to [facility]. XR chest 2V Reviewed date:07/01/2023 09:18:31 AM Interpretation: Performing Lab: Notes/Report: [address] [address] XRay Report Signed Patient: Salvatore Blum Jr MR#: [id number] : 1955 Acct:[id number] Age/Sex: 68 / M ADM Date: 06/24/23 Loc: [facility] Attending Dr: Temo Davis MD Ordering Physician: Temo Davis MD Date of Service: 06/24/23 Procedure(s): XR chest 2V Accession Number(s): [id number] cc: Temo Davis MD EXAMINATION: XR CHEST CLINICAL INFORMATION: Bronchitis COMPARISON: 04/29/2022 TECHNIQUE: 2 views of the chest were obtained. FINDINGS: No significant abnormality is noted involving the heart, lungs, mediastinum, bony thorax or soft tissues. XR/XR chest 2V IMPRESSION: Unremarkable examination. Dictated By: Misael Kemp MD Signed By: <Electronically signed by Misael Kemp MD in OV> 06/29/23 1525 DD/ 1400 TD/TT: Stick Puller: SS Glucose, finger stick Reviewed date:10/25/2023 09:54:51 AM Interpretation: Performing Lab: Notes/Report: Value 101 Prostate Specific Antigen Reviewed date:05/01/2024 12:42:07 PM Interpretation:see back 05-01-24 Performing Lab:[facility], [address] [place] [phone] Notes/Report: Prostate Specific Antigen 4.97 <0.05-4.0 ng/mL PSA methodology: Person Alinity i Chemiluminescent Microparticle Immunoassay (CMIA) Complete Blood Count Auto Di ff Reviewed date:04/25/2024 12:46:57 PM Interpretation: Performing Lab:[address] [phone] Notes/Report: White Blood Count 7.7 4.8-10.8 X10*3/uL [...] NRBC Abs Auto 0.000 0.0-0.012 X10*3/uL Comprehensive [place]. Panel Fa st Reviewed date:04/25/2024 01:50:50 PM Interpretation: Performing Lab:[facility], [address] [place] [phone] Notes/Report: Sodium 143 135-145 mmol/L Potassium 4.1 [...] Panel Reviewed date:04/25/2024 02:14:03 PM Interpretation: Performing Lab:[address] [phone] Notes/Report: Triglycerides 134 <150 mg/dL Desirable Triglyceride: [...] Random Reviewed date:04/25/2024 01:55:12 PM Interpretation: Performing Lab:[facility], [address] [place] [phone] Notes/Report: Creatinine Urine 123.77 Microalbumin Urine 5.0 Microalbum/Creatinine Ratio Ur 4.0 <30 ug/mg cr Albumin/Creatinine Ratio Reference Ranges: Normal: < 30 ug/mg creatinine Microalbuminuria: 30 - 300 ug/mg creatinine Clinical Albuminuria: > 300 ug/mg creatinine Hemoglobin A1c Reviewed date:04/25/2024 12:51:01 PM Interpretation: Performing Lab:[facility], [address] [place] [phone] Notes/Report: Hemoglobin A1c % 5.4 <6.0 % [...] average glucose, using the formula of the K1V-Ikzzsti Average Glucose study (ADAG), Diabetes Care, Vol.31,#8, Jan. 2007 UA ClnCatch+Micro w/rflx Cul t Reviewed date:04/25/2024 12:48:44 PM Interpretation: Performing Lab:[facility], [address] [place] [phone] Notes/Report: Urine, Clean Catch Color Urine Yellow Appearance Urine Clear PH 7.0 5.0-9.0 Glucose Urine UA Negative Negative mg/dL Urine Blood Negative Negative Specific [employer] - Urine 1.025 1.005-1.025 Urine Protein Negative Neg-Trace mg/dL Urine Ketones Negative Negative mg/dL Nitrite Urine Negative Negative Leukocyte Esterase Urine Negative Negative RBC Urine 0-2 0-2 /HPF WBC Urine 0-5 0-5 /HPF Squamous Epithelial Cell Urine 0-2 0-2 /HPF Bacteria Urine None Seen None Seen Hyaline Casts Urine 0-2 0-2 /LPF Occult Blood, Stool, Guaiac Reviewed date:05/01/2024 01:32:34 PM Interpretation:Negative Performing Lab: Notes/Report: Negative Occult Blood, Stool, Guaiac Neg CT abdomen pelvis w con Reviewed date:05/18/2024 03:34:54 PM Interpretation: Performing Lab: Notes/Report: [address] [address] [address] Scan Report Signed Patient: Salvatore Blum Jr MR#: [id number] : 1955 Acct:[id number] Age/Sex: 69 / M ADM Date: 05/17/24 Loc: HO.CT Attending Dr: Temo Davis MD Ordering Physician: Temo Davis MD Date of Service: 05/17/24 Procedure(s): CT abdomen pelvis w IV con Accession Number(s): [id number] cc: Temo Davis MD EXAMINATION: CT ABDOMEN AND PELVIS WITH CONTRAST CLINICAL INFORMATION: Abdominal pain. Right flank pain. COMPARISON: None available. TECHNIQUE: Multidetector volumetric images were obtained from the superior aspect of the liver through the pubic symphysis following administration 85 mL of Omnipaque 350 intravenous contrast. Sagittal and coronal reformatted images were obtained on the technologist's workstation. Oral contrast: Yes. This CT examination was performed using dose optimization techniques as appropriate, variously including the following: *Automated exposure control *Adjustment of mA and/or kV according to patient size (this includes techniques or standardized protocols for targeted exams where dose is matched to indication/reason for exam; i.e. extremities or head) *Use of iterative reconstruction technique DLP: 619 mGy-cm. FINDINGS: LUNG BASES: The visualized lung bases are unremarkable. LIVER, GALLBLADDER, AND BILIARY TREE: The liver is normal in size and shape. Parenchymal hypoattenuation, consistent with steatosis. Superior right hepatic cyst measuring up to 2.0 cm. No additional focal hepatic lesion or biliary ductal dilatation is present. The gallbladder is unremarkable with no evidence of radiopaque gallstones, gallbladder wall thickening, or obvious pericholecystic inflammatory changes. PANCREAS: Unremarkable. SPLEEN: Unremarkable. ADRENAL GLANDS: Unremarkable. KIDNEYS AND URETERS: The kidneys are normal in size, shape, and attenuation. No hydronephrosis, hydroureter, or calculi seen. Multiple simple bilateral renal cysts. Findings are not clinically significant, and no dedicated followup imaging is recommended. No perinephric stranding. BLADDER: Unremarkable. GASTROINTESTINAL TRACT: Oral contrast reaches the rectum. Small diverticulum at the second portion of the duodenum without inflammatory change. No small or large bowel obstruction. No bowel wall thickening or inflammatory change. Unremarkable appendix. PERITONEAL CAVITY: No intra-abdominal free air or free fluid. No abscess formation. ABDOMINAL WALL: No significant hernia is appreciated. LYMPH NODES: No lymphadenopathy. VASCULAR: Unremarkable. PELVIC VISCERA: Prominent prostatomegaly with mass effect on the posterior urinary bladder. The prostate measures up to 6.6 x 6.0 x 6.7 cm. OSSEOUS STRUCTURES: Unremarkable. CT/CT abdomen pelvis w IV con IMPRESSION: 1. No acute intra-abdominal or intrapelvic findings to explain the patient's pain. 2. Hepatic steatosis. Right hepatic cyst. No additional hepatic parenchymal lesion or biliary ductal dilatation. 3. Prominent prostatomegaly with mass effect on the posterior urinary bladder. Fleischner guidelines were followed. Electronically signed by: Sarthak Garsia MD 05/18/2024 11:03 AM EST RP Dictated By: Sarthak Garsia MD Signed By: <Electronically signed by Sarthak Garsia MD in OV> 05/18/24 1103 DD/ 1008 TD/TT: 05/17/24 1017 Stick Puller: REASON FOR REFERRAL Reason PAC Diagnosis 1 [...] Sauer 02:51:23 PM EST > info faxed Cristiane Annette 05/23/2024 10:04:39 AM EST > info refaxed Referral Priority Routine MEDICATIONS Medication SIG (Take, Route, Frequency, Duration) Notes Start Date End Date Status Escitalopram Oxalate 10 MG TAKE 1 TABLET BY MOUTH EVERY DAY for 90 Active Metoprolol Succinate ER 50 MG 1 [...] a day for 30 days 05/23/2024 Active IMMUNIZATIONS Vaccine Route Administration Date Status Comme nts Flu Vaccine Unknown 04/23/2014 Administered [employer] Flu Vaccine Unknown 03/20/2015 Administered Work [employer] Flu Vaccine IM Intramuscular 02/24/2016 Administered pt marina d the vaccine at [facility] in [place] PPSV23 (Pnemovax) IM Intramuscular 02/08/2017 Administered Fluarix Quadrivalent IM Intramuscular 02/18/2017 Administe red Shingles IM Intramuscular 03/01/2017 Administered Fluarix Quadrivalent IM Intramuscular 02/21/2018 Administe red Shingrix IM Intramuscular 02/28/2018 Administered TDaP IM Intramuscular 05/01/2018 Administered pt was given the vaccine at [facility] on [facility] in [place]. Shingrix IM Intramuscular 05/16/2018 Administered Tetanus Unknown 05/01/2018 Administered Fluarix Quadrivalent IM Intramuscular 02/20/2019 Administe red Influenza High Dose IM Intramuscular 02/20/2020 Administer ed Covid Vaccine Unknown 08/07/2020 Administered Moderna SARS-COV-2 Moderna Unknown 09/04/2020 Administered Influenza High Dose Unknown 02/15/2021 Administered Bobby lemons's SARS-COV-2 Moderna Unknown 04/07/2021 Administered SARS-COV-2 Moderna Unknown 09/25/2021 Administered Walalex borjan's Influenza High Dose IM Intramuscular 02/13/2022 Administer ed SOCIAL HISTORY Tobacco Use: Social History Observation [...] W/U Status Risk SNOMED Code Notes Problem Actinic keratosis (L57.0) Active confirmed Problem Prostatism (N40.0) Active confirmed 114 53338 Problem Tubular adenoma of colon (D12.6) Active confirmed 353190696 Problem Essential hypertensi on (I10) Active confirmed 36795954 Problem Prediabetes (R73.09) Active confirmed 9 048864 Problem History of basal kiera l cancer (Z85.828) Active confirmed 023411600 Problem Asthmatic bronchitis , mild intermittent, uncomplicated (J45.20) Active confirmed 164426256 Problem PAC (premature atria l contraction) (I49.1) Active confirmed 532760755 Problem Dysthymia (F34.1) Active confirmed 7866 7006 Problem Pure hypercholesterolemia (E78.00) Active confirmed 555797042 Problem History of squamous cell carcinoma (Z85.89) Active confirmed 42732751830725 Problem Abnormal finding on chest xray (R93.89) Active confirmed 359934281 Problem Bigeminy (I49.8) Active confirmed 89545 007 VITAL SIGNS Blood pressure diastolic 80 mm Hg 05/23/2024 Height 70.5 in 05/23/2024 Blood pressure systolic 142 mm Hg 05/23/2024 Weight 228 lbs 05/23/2024 BMI 32.25 kg/m2 05/23/2024 Encounters Encounter Location Date Provider Diagnosis Temo Davis MD [address] [place] [id number] 05/01/2024 Temo Davis Pure hypercholestero lemia E78.00 ; Essential hypertension I10 ; Prostatism N40.0 ; PSA elevation R97.20 ; PAC (premature atrial contraction) I49.1 ; Prediabetes R73.09 ; Colon cancer screening Z12.11 and Depression screening Z13.31 Temo Davis MD [address] [place] [id number] 03/14/2024 Temo Davis Rt flank pain R10.9 Temo Davis MD [address] [place] [id number] 04/25/2024 Temo Davis Prediabetes R73.09 ; Pure hypercholesterolemia E78.00 ; Essential hypertension I10 and Prostatism N40.0 Temo Davis MD [address] [place] [id number] 10/25/2023 Temo Davis Prediabetes R73.09 a nd Asthmatic bronchitis, mild intermittent, uncomplicated J45.20 Temo Davis MD [address] [place] [id number] 05/23/2024 Temo Davis PAC (premature atria l contraction) I49.1 and Dysthymia F34.1 Temo Davis MD [address] [place] [id number] 06/24/2023 Temo Davis Bronchitis J40 and Influenza A J10.1 Temo Davis MD [address] [place], [place] [id number] 10/27/2023 Temo Davis ASSESSMENTS Encounter Date Diagnosis Assessment Notes Treatment Notes Treatment Clinical Notes 05/01/2024 Essential hypertensi on (ICD-10 - I10) is well controlled 05/01/2024 Pure hypercholestero lemia (ICD-10 - E78.00) 03/14/2024 Rt flank pain (ICD-1 0 - R10.9) order faxed to [facility] CS dept 04/25/2024 Prediabetes (ICD-10 - R73.09) 04/25/2024 Pure hypercholestero lemia (ICD-10 - E78.00) 10/25/2023 Prediabetes (ICD-10 - R73.09) needs to get on diet 10/25/2023 Asthmatic bronchitis , mild intermittent, uncomplicated (ICD-10 - J45.20) using inhaler couple times a day lately 05/23/2024 PAC (premature atria l contraction) (ICD-10 - I49.1) patient verbalized understanding of the medication and directions for use, has done well on metoprolol but makes him too sleepy 06/24/2023 Bronchitis (ICD-10 - J40) OR DERS FAXED TO PATIENT [facility] Mara YOVANI IS AWARE don't take the zpak 06/24/2023 Influenza A (ICD-10 - J10.1) 05/01/2024 Prostatism (ICD-10 - N40.0) 04/25/2024 Essential hypertensi on (ICD-10 - I10) 05/23/2024 Dysthymia (ICD-10 - F34.1) 05/01/2024 PSA elevation (ICD-1 0 - R97.20) referral to urology in 04/25/2024 Prostatism (ICD-10 - N40.0) 05/01/2024 PAC (premature atria l contraction) (ICD-10 - I49.1) referral back to dr plata 05/01/2024 Prediabetes (ICD-10 - R73.09) stable, no need for mediction at this time 05/01/2024 Colon cancer screeni ng (ICD-10 - Z12.11) 05/01/2024 Depression screening (ICD-10 - Z13.31) PLAN OF TREATMENT Pending Test Test Name Order Date Electrocardiogram (EKG) 01/31/2016 Electrocardiogram (EKG) 02/11/2017 CT ABD & PELVIS WITH CONTRAST 03/14/2024 XR CHEST 2 VIEW PA & LAT 04/28/2022 XR CHEST 2 VIEW PA & LAT 06/24/2023 XR CHEST 2 VIEW PA & LAT 05/16/2019 XR CHEST 2 VIEW PA & LAT 01/16/2022 Holter monitor 07/26/2015 ECHO 04/28/2022 PSA,Total (Free>4and<10) 04/25/2024 ECG 30 day event monitor 01/16/2022 Next Appt Details Provider Name:Temo Cheatham ier, 08/18/2024 10:00:00 AM, [address] [place] [address], [address], [phone], Provider Name:Temo Cheatham ier, 04/26/2025 08:00:00 AM, [address] [place] [address], [address], [phone], Provider Name:Temo Cheatham ier, 05/03/2025 09:30:00 AM, [address] [place] [address], [address], [phone], Insurance Providers Payer Name Payer Address Payer Phone Subscriber Number Group Number Insured Name Patient Relationship to Insured Coverage Start Date Coverage End Date MEDICARE NHIC [address] [place] [address] [id number] Salvatore Blum Self - patient is the insured [facility] [address] [place] [phone] [id number] Salvatore Blum Self - patient is the insured MEDICAL (GENERAL) HISTORY Medical History History ICD Code colonoscopy 2010. due in 5 y ears; colonoscopy 03/19/[address] Ulloa - repeat 5 years; 07/16/21 colonoscopy Artemio repeat 5yrs HX guaiac positive stools HX abnormal EKG
--- OUTSIDE RECORDS SUMMARY | 2024-05-23 16:15 | XMS_ITS | Patient Health Record ---
Author Organization [facility] Address [address] [place] [address] Care Team Providers Care Ornamental Ironworker Name Role Phone Temo Davis MD Primary Care Provider Azam Montgomery [phone] ALLERGIES Allergen (clinical drug ingredient) Drug/Non Drug Allergy documented on EMR Reaction Allergy Type Onset Date Status Halothane Unknown Drug Allergy Active REASON FOR REFERRAL No Information MEDICATIONS Medication SIG (Take, Route, Fr equency, Duration) Notes Start Date End Date Status PARoxetine HCl 40 MG 1 tablet in the mor henrietta Orally Once a day Active Fenofibrate 145 MG 1 tablet Orally Once a day for 30 day(s) Active IMMUNIZATIONS Vaccine Route Administration Date Status Comme nts Influenza Unknown 04/30/2021 Administered SOCIAL HISTORY Sex Assigned At : Social History Observation Description Sex Assigned At Unknown PROBLEMS Problem Type ICD Code Onset Dates Problem Status W/U Status Risk SNOMED Code Notes Problem Encounter for screening for malignant neoplasm of colon (Z12.11) Active confirmed Screening for malignant neoplasm of colon (222568753) Problem History of adenomatous polyp of colon (Z86.010) Active confirmed 910126448 Problem Blood in stool (K92.1) Active confirmed 875519192 Problem Preprocedural examination (Z01.818) Active confirmed Preprocedural examination (564285140226368) Problem Heme + stool (R19.5) Active confirmed 54982422 Problem Diverticulosis of colon (K57.30) Active confirmed Diverticulosi s of colon (531449350) PLAN OF TREATMENT Pending Test Test Name Order Date Pathology 07/16/2021 Future Test Test Name Order Date COLONOSCOPY 2016 COLONOSCOPY 05/15/2020 COLONOSCOPY 06/18/2021 Insurance Providers Payer Name Payer Address Payer Phone Subscriber Number Group Number Insured Name Patient Relationship to Insured Coverage Start Date Coverage End Date [facility] [address] [place], [place] [phone] [id number] FRANK FONSECA Self - patient is the insured MEDICAL (GENERAL) HISTORY Medical History History ICD Code Colonoscopy 03-27-2011--hype rplastic polyp, mild diverticulosis, small internal hemorrhoids; and in 2005 1 small tubular adenoma removed. Hyperlipidemia Denies [place],DM,CVA,Lung disease,renal dise ase Depression Abnormal EKG--seeing cardiology, Dr. Augusto carnes, on 02/20/16 Negative colonoscopy in 03/2016 Surgical History Surgery Date(Month/Year) Mouth and jaw surgery 1979
== END 2024-05-17 07:18 | disposition home or self-care (01) ==
LOC: HO.CT 07:17
PROVIDERS: PCP Internal Medicine; Visit Provider Internal Medicine
DX: R10.9 Unspecified abdominal pain (principal)
CPT/HCPCS: 74177; Q9967

== ENCOUNTER 2024-08-10 09:24 | Outpatient (AMB) | payer MEDICARE, OTHER, SELFPAY ==
[2024-08-10 09:36] VITALS: BP 124/72; PULSE 51; BMI 33.1
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
--- OUTSIDE RECORDS SUMMARY | 2024-08-10 10:35 | XMS_ITS ---
Author Organization Temo Davis MD Address [address] [place] [phone] Care Team Providers Care Thread Grinder Tool Name Role Phone Temo Davis Primary Care [...] Temo Davis MD [address] [place] [phone] 05/23/2024 Temo Davis PAC (premature atrial contraction) [...] it Next Appt Details Provider Name:Temo estrada, 08/18/2024 10:00:00 AM, [address] [place] [address], [address] [place] [address], [phone], Provider Name:Temo estrada, 04/26/2025 08:00:00 AM, [address] [place] [address], [facility], [place], [place], [phone], Provider Name:Temo Cheatham ier, 05/03/2025 09:30:00 AM, [address], [address], [place], [place], [phone], Progress Notes * MARIAN Salvatore Hamm JrDOB:1954 (69 yo M)Acc No.[id number]:05/23/2024 Progress Notes Patient:?Salvatore Blum Hansel Provider:?Temo Davis MD :1955???Age:69 Y???Sex:Male Anthony e:05/23/2024 Address:[address] [place], [place] [phone] Subjective: * Chief Complaints: * ???CT results per Dr Cheatham ierAccompanied by * HPI: ???Symptom(s):? patient is a 69 yo male here to discuss results of recent CT scan, gets a little pinching and pins and needles in flank. can walk 2 miles. went over cat scan of abdomen which showed fatty liver. * ROS:?General/Constitutional:?Denies?Chills.?Denies?Fatigue.?Denies?Fever.?Denies?Headache.?ENT:?Patient denies?decreased sense of smell , any loss of taste , sore throat.?Denies?Sore throat.?Respiratory:?Denies?Cough.?Denies?Shortness of breath at rest.?Denies?Shortness of breath with exertion.?Gastrointestinal:?Denies?Diarrhea.?Denies?Nausea.?Musculoskeletal:?Patient denies?muscle aches.?Peripheral Vascular:?Patient denies?red and blue toes.? * Medical History:? * Surgical History:? * Hospitalization/Major Diagno stic Procedure:? * Medications:?TakingEscitalop lisbet Oxalate 10 MG Tablet TAKE 1 TABLET [...] reviewed and reconciled with the patient * Allergies:?hallothane: cardi ac arrestyes[Allergies Verified] Objective: * Vitals:?Ht: 70.5, Wt:228, BM I:32.25, BP:142/80, Repeat BP:120/84. * Examination: ???General Examination: ?GENERAL APPEARANCE:?alert, well hydrated, in no distress.?HEAD:?normocephalic.?SKIN:?good turgor.?HEART:?no murmurs, rubs, gallops , regular rate and rhythm.?LUNGS:?no wheezes, rales, rhonchi , good air movement , clear to auscultation bilaterally.? Assessment: * Assessment: 1.?PAC (premature atrial con traction) - I49.1 (Primary)?2.?Dysthymia - F34.1?3.?Right flank pain - R10.9? Plan: * Treatment: 2.?Right flank pain? Notes: went over the cat scan of the abdomen. only finding was a fatty liver and advised weight loss for that. after that he started to complain that he had a tingling in flank and it goes around. sounds as though it is a pinched nerve but not bad enough to do anything about it?? * Procedure Codes:? * * Sign off status: Completed true * Provider:?Temo Davis MD Date:?1 07/24/2023 Generated for Gus back/Marisela/eTransmitting on:?08/10/2024 10:35 AM EST History and Physical Notes * HPI [...]
--- OUTSIDE RECORDS SUMMARY | 2024-08-10 10:36 | XMS_ITS | Patient Health Record ---
Author Organization [facility] Address [address] [place] [address] Care Team Providers Care Lockstitch Tunnel Elastic Operator Name Role Phone Temo Davis MD Primary Care Provider Azam Montgomery [phone] ALLERGIES Allergen (clinical drug ingredient) Drug/Non Drug [...] confirmed Screening for malignant neoplasm of colon (749853283) Problem History of adenomatous polyp of colon (Z86.010) Active confirmed 215489657 Problem Blood in stool (K92.1) Active confirmed 515495757 Problem Preprocedural examination (Z01.818) Active confirmed Preprocedural examination (985949609639812) Problem Heme + stool (R19.5) Active confirmed 79302522 Problem Diverticulosis of colon (K57.30) Active confirmed Diverticulosi s of colon (021026010) PLAN OF TREATMENT Pending Test Test Name Order Date Pathology 07/16/2021 Future Test Test Name Order Date COLONOSCOPY 2016 COLONOSCOPY 05/15/2020 COLONOSCOPY 06/18/2021 Insurance Providers Payer Name Payer Address Payer Phone Subscriber Number Group Number Insured Name Patient Relationship to Insured Coverage Start Date Coverage End Date [facility] [address] [place], [place] [phone] [id number] FRANK FONSECA Self - patient is the insured MEDICAL (GENERAL) HISTORY Medical History History ICD Code Colonoscopy 03-27-2011--hype rplastic polyp, mild diverticulosis, small internal hemorrhoids; and in 2005 1 small tubular adenoma removed. Hyperlipidemia Denies [place],DM,CVA,Lung disease,renal dise ase Depression Abnormal EKG--seeing cardiology, Dr. Augusto carnes, on 02/20/16 Negative colonoscopy in 03/2016 Surgical History Surgery Date(Month/Year) Mouth and jaw surgery 1979
--- OUTSIDE RECORDS SUMMARY | 2024-08-10 10:36 | XMS_ITS ---
Author Organization Temo Davis MD Address [address] [place], [place] [id number] Care Team Providers Care Pearl Peller Name Role Phone Temo Davis Primary Care Provider [phone] Allergies Allergen (clinical drug ingredient) Drug/Non Drug Allergy documented on EMR Reaction Allergy Type Onset Date Status hallothane (uncoded) cardiac arrest Allergy Active Results Component Value Reference Range Notes Occult Blood, Stool, Guaiac Reviewed date:05/01/2024 01:32:34 PM Interpretation:Negative Performing Lab: Notes/Report: Negative Occult Blood, Stool, Guaiac Neg Reason For Referral Reason PAC Diagnosis 1 PAC (premature atria l contraction) (I49.1) Referral Organization Temo Davis MD Referring Provider First Name Temo Referring Provider Last Name Ryan Referring Provider Speciality Internal edicine Referred Provider MARY CARRION Referred Provider Specialty Cardiology General Notes Mariluz Sauer 02:50:15 PM EST > info faxed, Mariluz Sauer 05/26/2024 09:30:44 AM EST > referral info mailed to patient with letter Referral Priority Routine Referral Appointment Date 08/10/2024 Reason PSA elevation Diagnosis 1 PSA elevation (R97.2 0) Referral Organization Temo Davis MD Referring Provider First Name Temo Referring Provider Last Name Ryan Referring Provider Speciality Internal edicine Referred Provider BEVERLY BUSBY Referred Provider Specialty Urology General Notes Mariluz Sauer 02:51:23 PM EST > info faxed Mariluz Sauer 05/23/2024 10:04:39 AM EST > info refaxed , Mariluz Sauer 05/26/2024 09:33:19 AM EST > referral info mailed with letter Referral Priority Routine Referral Appointment Date 06/27/2024 REASON FOR VISIT review labs/ must see prostate specific antigen, Accompanied by Medications Medication SIG (Take, Route, [...] a day for 30 days 05/01/2024 Active Social History Tobacco Use: Social History Observation Description Date Details (start date - stop date) Former Smoker NA - NA Tobacco Use/Smoking Question Answer Notes Patient is a former smoker How long has it been since y ou last smoked? > 10 years Additional Findings: Tobacco Non-User Fo rmer smoker, currently using no form of tobacco Alcohol Screen Question Answer Notes Did you have a drink containing alcohol in the p ast year? No Points 0 Interpretation Negative Problems Problem Type SNOMED Code ICD Code Onset Dates Problem Status W/U Status Risk Notes Problem [id number] PAC (premature atrial contraction) (I49.1) Active confirmed Vital Signs Blood pressure systolic 112 mm Hg 05/01/20 24 Blood pressure diastolic 70 mm Hg 024 Height 70.5 in 05/01/2024 Weight 223 lbs 05/01/2024 BMI 31.54 kg/m2 05/01/2024 weight is up 2 pounds since 03-14-24 Encounters Encounter Location Date Provider Diagnosis Temo Davis MD [address] [facility] [address] [place] [phone] 05/01/2024 Temo Davis Pure hypercholestero lemia E78.00 ; Essential hypertension I10 ; Prostatism N40.0 ; PSA elevation R97.20 ; PAC (premature atrial contraction) I49.1 ; Prediabetes R73.09 ; Colon cancer screening Z12.11 and Depression screening Z13.31 Assessments Encounter Date Diagnosis (ICD Code) Assessment Notes Treatment Notes Treatment Clinical Notes Section Notes 05/01/2024 Pure hypercholesterolemia (ICD-10 - E78.00) 05/01/2024 Essential hypertensi on (ICD-10 - I10) is well controlled 05/01/2024 Prostatism (ICD-10 - N40.0) 05/01/2024 PSA elevation (ICD-1 0 - R97.20) [facility] 05/01/2024 PAC (premature atria l contraction) (ICD-10 - I49.1) referral back to dr plata 05/01/2024 Prediabetes (ICD-10 - R73.09) stable, no need for mediction at this time 05/01/2024 Colon cancer screeni ng (ICD-10 - Z12.11) 05/01/2024 Depression screening (ICD-10 - Z13.31) Plan Of Treatment Medication Medication Name Sig [...] d PSA elevation referral to urology in PAC (premature atrial contraction) refer ral back to dr plata Prediabetes stable, no need for mediction at this time Referrals Referral Date Details 05/01/2024 05/01/2024, PAC ROMARIO 05/01/2024 05/01/2024, PSA elev ationBEVERLY Next Appt Details Provider Name:Temo estrada, 08/18/2024 10:00:00 AM, [address] [place] [address], [address], [place], [place], [phone], Provider Name:Temo estrada, 04/26/2025 08:00:00 AM, [address] [place] [address], [address], [place], [place], [phone], Provider Name:Temo Cheatham ier, 05/03/2025 09:30:00 AM, [address] [facility] [address], [address], [place], [place], [phone], Progress Notes * Salvatore BLUM JrDOB:1954 (69 yo M)Acc No.[id number]:05/01/2024 Patient:?Salvatore Blum Provider:?Temo Davis MD :1955???Age:69 Y???Sex:Male Anthony e:05/01/2024 Address:[address] [place] [address], [facility] Subjective: * Chief Complaints: * ???Review labs/ must see pro state specific antigenAccompanied by * HPI: ???Depression Screening:?PHQ-9?Little interest or pleasure in doing things?Not at all,?Feeling down, depressed, or hopeless?Not at all,?Trouble falling or staying asleep, or sleeping too much?Not at all,?Feeling tired or having little energy?Not at all,?Poor appetite or overeating?Not at all,?Feeling bad about yourself or that you are a failure, or have let yourself or your family down?Not at all,?Trouble concentrating on things, such as reading the newspaper or watching television?Not at all,?Moving or speaking so slowly that other people could have noticed; or the opposite, being so fidgety or restless that you have been moving around a lot more than usual?Not at all,?Thoughts that you would be better off or of hurting yourself in some way?Not at all,?Total Score?0.?Communication Needs:?Communication Needs?Does the patient have a hearing impairment?No,?Does the patient have a vision impairment??Yes,?If yes, what is the vision impairment??Glasses,?Does the patient have a cognition impairment??No.?Fall Risk:?History?Have you had any falls with injury in the past year??No,?Have you had two or more falls in the past year??No.?SDOH Questions:?SDOH Questions?In the past year have you been worried about losing housing??No,?In the past year have you or any family members you live with been unable to get any of the following when it was really needed? Check all that apply:?None.?Symptom(s):? patient is a 69 yo male here for visit with review of recent labs and follow up of chronic issues, racey feeling in chest. gets dizzy and sick to stomach. 15 min to half hour. never checks his pulse. no chest pain/ walks 2 miles 5 days a week and he doesn't have to stop. had an event monitoer that showed some pac's and pcv/ haviing pain in lower back if he does any work and bending. * ROS:?General/Constitutional:?Patient denies?fatigue , headache.?Change in appetite?denies.?Chills?denies.?Fever?denies.?Ophthalmologic:?Blurred vision?denies.?Discharge?denies.?Pain?denies.?ENT:?Patient denies?decreased sense of smell , any loss of taste , sore throat.?Decreased hearing?denies.?Sore throat?denies.?Swollen glands?denies.?Endocrine:?Cold intolerance?denies.?Excessive thirst?denies.?Heat intolerance?denies.?Weight loss?denies.?Respiratory:?Cough?denies.?Shortness of breath at rest?denies.?Shortness of breath with exertion?denies.?Wheezing?denies.?Cardiovascular:?Chest pain at rest?denies.?Chest pain with exertion?denies.?Irregular heartbeat?denies.?Shortness of breath?denies.?Gastrointestinal:?Abdominal pain?denies.?Change in bowel habits?denies.?Diarrhea?denies.?Nausea?denies.?Rectal bleeding?denies.?Vomiting?denies .?Genitourinary:?Blood in urine?denies.?Difficulty urinating?denies.?Frequent urination?denies.?Musculoskeletal:?Patient denies?muscle aches.?Painful joints?denies.?Weakness?denies.?Peripheral Vascular:?Patient denies?red and blue toes.?Skin:?Dry skin?denies.?Itching?denies.?Denies?Mole(s),? changes in moles, new moles or any lesions of concern.?Denies?Photosensitivity.?Rash?denies.?Neurologic:?Dizziness?denies.?Fainting?denies.?Headache?denies.? * Medical History:? * Surgical History:? * Hospitalization/Major Diagno stic Procedure:? * Family History:?Father: dece ased 79 yrs.?Mother: 69 yrs, diagnosed with Alzheimer disease.?1 sister(s) . 3 son(s) . .? Father-MVA mother- alzheimer's, Denies mental health/substance abuse family history, Denies mental health/substance abuse family history, No pertinent family medical history. * Social History:?Tobacco Use:?Tobacco Use/Smoking?Patient is a?former smoker,?How long has it been since you last smoked??> 10 years,?Additional Findings: Tobacco Non-User?Former smoker, currently using no form of tobacco.?Drugs/Alcohol:?Alcohol Screen?Did you have a drink containing alcohol in the past year??No,?Points?0,?Interpretation?Negative.?Miscellaneous:?Caffeine: yes, 2-3 cups per day. Children: yes. no Community involvements. Exercise: yes, walking daily for 20-25 minutes. Housing: owning. Living with: spouse. Marital status: . Occupation: works full-time. Pets: none. Travel outside of the [place]: yes, [place]. * Medications:?TakingValsartan -hydroCHLOROthiazide 80-12.5 MG Tablet TAKE 1 TABLET BY MOUTH EVERY DAY Tamsulosin HCl 0.4 MG Capsule TAKE 1 CAPSULE BY MOUTH EVERY DAY Escitalopram Oxalate 10 MG Tablet TAKE 1 TABLET BY MOUTH EVERY DAY Fenofibrate 145 MG Tablet TAKE 1 TABLET BY MOUTH EVERY DAY Taking Valsartan-hydroCHLOROthiazide 80- 12.5 MG Tablet TAKE 1 TABLET BY MOUTH EVERY DAY Taking Tamsulosin HCl 0.4 MG Capsule TAKE 1 CAPSULE BY MOUTH EVERY DAY Taking Escitalopram Oxalate 10 MG Tablet TAKE 1 TABLET BY MOUTH EVERY DAY Taking Fenofibrate 145 MG Tablet TAKE 1 TABLET BY MOUTH EVERY DAY Not-Taking/PRNProAir HFA 108 (90 Base) MCG/ACT Aerosol Solution 2 puffs as needed Inhalation every 4 hrsMedication List reviewed and reconciled with the patientNot-Taking/PRN ProAir HFA 108 (90 Base) MCG/ACT Aerosol Solution 2 puffs as needed Inhalation every 4 hrsMedication List reviewed and reconciled with the patient * Allergies:?hallothane: cardi ac arrestyes[Allergies Verified] Objective: * Vitals:?Ht: 70.5, Wt:223, BM I:31.54, BP:112/70 weight is up 2 pounds since 03-14-24. * ???Past Orders: ???Lab:Complete Blood Count Auto Diff (Order Date - 04/25/2024) (Collection Date - 04/25/2024) ? Value Reference Range ?White Blood Count 7.7 4. 8-10.8 - X10*3/uL ?Red Blood Count 5.52 4.60 -5.80 - X10*6/uL ?Hemoglobin 16.7 14.0-18.0 - g/dl ?Hematocrit 49.2 42.0-52.0 - % ?Mean Corpuscular Volume 89.1 80.0-98.0 - fL ?Mean Corpuscular Hemoglobin 30.3 27.0-33.0 - pg ?Mean Corpuscular HGB Conc 33.9 31.0-36.0 - g/dl ?Red Cell Distribution Width 13.7 11.0-16.0 - % ?Platelet Count 257 160-4 00 - X10*3/uL ?Mean Platelet Volume 8.7 L 9.4-12.4 - fL ?Neutrophils Percent Auto 50.3 45-73 - % ?Imm Gran Pct Auto 0.5 H 0. 0-0.4 - % ?Lymphocytes Percent Auto 37.3 20-40 - % ?Monocytes Percent Auto 8.0 2-11 - % ?Eosinophils Percent Auto 3.0 0-4 - % ?Basophils Percent Auto 0.9 0-2 - % ?NRBC Pct Auto 0.0 0.0-0. 2 - /100WBC ?Neutrophils Absolute Auto 3.9 2.0-8.3 - x10*3/uL ?Imm Gran Abs Auto 0.04 H 0. 00-0.03 - X10*3/uL ?Lymphocytes Absolute Auto 2.9 1.2-4.9 - X10*3/uL ?Monocytes Absolute Auto 0.6 0.1-1.2 - X10*3/uL ?Eosinophils Absolute Auto 0.2 0.0-0.4 - X10*3/uL ?Basophils Absolute Auto 0.1 0.0-0.2 - X10*3/uL ?NRBC Abs Auto 0.000 0.0-0. 012 - X10*3/uL ???Lab:Hemoglobin A1c (Order Date - 04/25/2024) (Collection Date - 04/25/2024) ? Value Reference Range ?Hemoglobin A1c % 5.4 <6. 0 - % ?Estimated Average Glucose 108 - mg/dL ???Lab:Comprehensive [place]. P vinod Fast (Order Date - 04/25/2024) (Collection Date - 04/25/2024) ? Value Reference Range ?Sodium 143 135-145 - mmo l/L ?Bilirubin Total 0.5 0.0- 1.0 - mg/dL ?Aspartate Amino Transferase 28 5-37 - U/L ?Alanine Aminotransferase 32 0-40 - U/L ?Total Protein 6.8 6.5-8. 0 - g/dL ?Albumin Level 4.3 3.5-5. 0 - g/dL ?Alkaline Phosphatase 67 39-117 - U/L ?Potassium 4.1 3.3-5.1 - mmol/L ?Chloride 109 H 96-108 - mm ol/L ?Carbon Dioxide 25 22-29 - mmol/L ?Anion Gap 13 12-20 - ?Blood Urea Nitrogen 22 H 9-16 - mg/dL ?Creatinine 0.79 0.5-1.4 - mg/dL ?Estimated Glomerular Filt Rate > 60 - ?Glucose Fasting 92 60-9 9 - mg/dL ?Calcium 9.4 8.4-10.2 - m g/dL ???Lab:Lipid Panel (Order Da te - 04/25/2024) (Collection Date - 04/25/2024) ? Value Reference Range ?Triglycerides 134 <150 - mg/dL ?Cholesterol 169 <200 - m g/dL ?LDL Cholesterol Calculated 103 H <100 - mg/dL ?HDL Cholesterol 40 L >40 - mg/dL ???Lab:Microalbumin, Random (Order Date - 04/25/2024) (Collection Date - 04/25/2024) ? Value Reference Range ?Creatinine Urine 123.77 - m g/dL ?Microalbumin Urine 5.0 - mg/L ?Microalbum Creatinine Ratio Ur 4.0 <30 - ug/mg cr * Examination: ???General Examination: ?GENERAL APPEARANCE:?well developed, well nourished, in no acute distress.?HEAD:?normocephalic, atraumatic.?EYES:?pupils equal, round, reactive to light and accommodation, sclera non-icteric.?EARS:?normal.?ORAL CAVITY:?mucosa moist.?THROAT:?clear.?NECK/THYROID:?neck supple, full range of motion, no cervical lymphadenopathy, no bruits.?SKIN:?warm and dry, no suspicious lesions.?HEART:?regular rate and rhythm, S1, S2 normal, no murmurs.?LUNGS:?clear to auscultation bilaterally.?ABDOMEN:?soft, nontender, nondistended, bowel sounds present, normal, no organomegaly , no masses palpable.?RECTAL EXAM:?normal tone, no external hemorrhoids, no masses palpable, prostate normal, stool guaiac negative.?MALE GENITOURINARY:?circumcised , no penile lesions or discharge , testes descended bilaterally , no testicular mass.?EXTREMITIES:?no clubbing, cyanosis, or edema.?NEUROLOGIC:?nonfocal, motor strength normal upper and lower extremities, sensory exam intact.? Assessment: * Assessment: 1.?Pure hypercholesterolemia - E78.00 (Primary)?2.?Essential hypertension - I10?3.?Prostatism - N40.0?4.?PSA elevation - R97.20?5.?PAC (premature atrial contraction) - I49.1?6.?Prediabetes - R73.09?7.?Colon cancer screening - Z12.11 8.?Depression screening - Z13.31? Plan: * Treatment: 2.?Essential hypertension? Notes: is well controlled?? 3.?Prostatism? Continue Tamsulosin HCl Capsule, 0.4 MG, TAKE 1 CAPSULE BY MOUTH EVERY DAY.?? 4.?PSA elevation? Notes: referral to urology in ? Referral To:BEVERLY BUSBY??Urology ?Reason:PSA elevation 5.?PAC (premature atrial con traction)? Start Metoprolol Succinate ER Tablet Extended Release 24 Hour, 50 MG, 1 tablet, Orally, Once a day, 30 days, 30, Refills 4.?? Notes: referral back to dr plata? Referral To:SHERRIE CARRION??Cardiology ?Reason:PAC 6.?Prediabetes? Notes: stable, no need for mediction at this time?? 7.?Colon cancer screening?LAB: Occult Blood, Stool, Guaiac?Negative ? Value Reference Range ?Occult Blood, Stool, Guaiac Neg * Procedure Codes:?34789 TEST FOR BLOOD, FECES * * Sign off status: Completed true * Provider:?Temo Davis MD Date:?1 07/01/2023 Generated for Gus back/Marisela/Rosaleesmitting on:?08/10/2024 10:36 AM EST History and Physical Notes * HPI (History of Present Illness) Category Sub-Category Detail Notes Category Not es Symptom(s) patient is a 69 yo male here for visit with review of recent labs and follow up of chronic issues, racey feeling in chest. gets dizzy and sick to stomach. 15 min to half hour. never checks his pulse. no chest pain/ walks 2 miles 5 days a week and he doesn't have to stop. had an event monitoer that showed some pac's and pcv/ haviing pain in lower back if he does any work and bending Depression Screening PHQ-9 Little inte rest or [...] Have you had any falls with injury i n the past year?: No Have you had two or more falls in the year?: No Communication Needs Communication Needs Does the patient have a hearing impairment: No Does the patient have a vision impairmen t?: Yes ?If yes, what is the vision impairment?: Glasses Does the patient have a cognition impair ment?: No Examination Category Sub-Category Detail Notes Category Not es General Examination GENERAL APPEARANCE: well dev eloped, [...] stool guaiac negative ORAL CAVITY: mucosa moist Consultation Request Notes Referral Date Referring Provider Referred Provider Not es 05/01/2024 Temo Davis HARIHARAN P AC 05/01/2024 Temo Davis JOSHUA PSA elevat ion
--- OUTSIDE RECORDS SUMMARY | 2024-08-10 10:36 | XMS_ITS ---
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 WILL TEST FOR COVID BEFORE TELEHEALTH Negative for Covid, c/o fatigue headache hada sore throat, productive cough and congestion, cannot smell, runny nose x 2 weeks, [phone] Medications Medication SIG (Take, Route, Frequency, Duration) [...] Problem Status W/U Status Risk Notes Problem [id number] Purulent bronchitis (J41.1) Active confirmed Vital Signs Height 70.5 in 07/24/2024 weight is 223 BP not taken n o temp Encounters Encounter Location Date Provider Diagnosis Temo Davis MD [address] [place] [phone] 07/24/2024 Temo Davis Purulent bronchitis J41.1 Assessments [...] 07/24/2024 Next Appt Details Provider Name:Temo estrada, 08/18/2024 10:00:00 AM, [address] [place] [address], [phone], Provider Name:Temo estrada, 04/26/2025 08:00:00 AM, [address] [place] [address], [phone], Provider Name:Temo estrada, 05/03/2025 09:30:00 AM, [address] [place] [address], [phone], Progress Notes * Salvatore BLUM JrDOB:1954 (69 yo M)Acc No.[id number]:07/24/2024 Patient:?Salvatore BLUM Jr Provider:?Temo Davis MD :1955???Age:69 Y???Sex:Male Anthony e:07/24/2024 Address:[address] [place], [place] [phone] Subjective: * Chief Complaints: * ???COUGH, CONGETD . WILL MILLER T FOR COVID BEFORE TELEHEALTH Negative for CovidC/o fatigue headache had a sore throat, productive cough and congestion, cannot smell, runny nose x 2 [id number] * HPI: ???Symptom(s):?Telehealth?Location of provider rendering services:?[address], [address],?Location of patient:?at address listed in demographics for today's visit,?Patient identification confirmed using:?Name, ,?Telehealth method:?Video conference where patient is visible to the provider of care,?Consent:?Patient verbally consented to treatment, Patient verbally consented to billing insurance company, Patient informed of any privacy concerns related to method of visit,?Total time spend talking with patient (minutes)?20.?patient is a 69 yo male video teleheatlh visit, has cough and cold or 2 weeks. lot of coughing at night. not likie the flu. no ferver no vomiting tired all the time. wakes up tired and lays back down. * ROS:?General/Constitutional:?Denies?Chills.?Admits?Fatigue.?Denies?Fever.?Admits?Headache.?ENT:?Patient denies?decreased sense of smell, any loss of taste, sore throat.?Denies?Sore throat.?Respiratory:?Admits?Cough.?Denies?Shortness of breath at rest.?Denies?Shortness of breath with exertion.?Admits?Sputum production.?Gastrointestinal:?Denies?Diarrhea.?Denies?Nausea.?Musculoskeletal:?Patient denies?muscle aches.?Peripheral Vascular:?Patient denies?red and blue toes.? [...] cardi ac arrestyes[Allergies Verified] Objective: * Vitals:?Ht: 70.5. weight is 223 BP? not taken no temp. * Examination: ???General Examination: ?GENERAL APPEARANCE:?alert, well hydrated, in no distress.?HEAD:?normocephalic.? Assessment: * Assessment: 1.?Purulent bronchitis - J41 .1 (Primary)??? Plan: * Treatment: * Procedure Codes:? * * Sign off status: Completed true * Provider:?Temo Davis MD Date:?0 07/24/2024 Generated for Gus back/Marisela/Erica on:?08/10/2024 10:36 AM EST History and Physical Notes * HPI (History of Present Illness) Category Sub-Category Detail Notes Category Not es Symptom(s) Telehealth Location of [facility] ider rendering services:: [address], [address] [...]
== END 2024-08-10 10:07 | disposition home or self-care (01) ==
PROVIDERS: PCP Internal Medicine; Visit Provider Internal Medicine
DX: R94.31 Abnormal electrocardiogram [ECG] [EKG] (principal); I49.1 Atrial premature depolarization; I49.3 Ventricular premature depolarization; G47.33 Obstructive sleep apnea (adult) (pediatric)
CPT/HCPCS: 93010; 99214

== ENCOUNTER → 2024-08-10 09:24 | Outpatient (BNVA) | payer MEDICARE, OTHER, SELFPAY | PROVIDERS: PCP Internal Medicine; Visit Provider Internal Medicine | DX: I49.1 Atrial premature depolarization (principal); I49.3 Ventricular premature depolarization; G47.33 Obstructive sleep apnea (adult) (pediatric); R94.31 Abnormal electrocardiogram [ECG] [EKG]; R00.1 Bradycardia, unspecified | CPT/HCPCS: 93005; 99212 ==

== ENCOUNTER 2024-12-04 10:08 | Outpatient (AMB) | payer MEDICARE, OTHER, SELFPAY ==
--- OUTSIDE RECORDS SUMMARY | 2024-05-23 06:00 | XMS_ITS ---
Author Organization Temo Davis MD Address [address] [place] [phone] Care Team Providers Care Boiler Room Operator Name Role Phone Temo Davis Primary Care Provider [phone] Allergies Allergen (clinical drug ingredient) Drug/Non Drug [...] Temo Davis MD [address] [place] [phone] 05/23/2024 Temo Davis PAC (premature atrial contraction) [...] it Next Appt Details Provider Name:Temo estrada, 04/26/2025 08:00:00 AM, [address] [place] [address], [address], [phone], Provider Name:Temo estrada, 05/03/2025 09:30:00 AM, [address] [place] [address], [place] [address], [place], [place], [phone], Progress Notes * Salvatore BLUM JrDOB:1954 (69 yo M)Acc No.[id number]:05/23/2024 Progress Notes Patient: Salvatore Solorio Provider: Hansel Davis MD :1955 A ge:69 Y S ex:Male Date:05/23/2024 Address:[address] [place] [address], [facility] Subjective: * Chief Complaints: * C T [...] true * Provider: Hansel Davis MD Date: 1 07/24/2023 Generated for Gus back/Marisela/Rosaleesmitting on: 0 12/04/2024 11:13 AM EDT History and Physical Notes * HPI (History [...]
[2024-12-04 10:14] VITALS: BP 124/70; PULSE 50; BMI 32.6
--- NOTE | 2024-12-04 10:14 | MHC.OFFVIS ---
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 He has a history of sleep apnea, Hyperlipidemia and remote cardiac arrest from Halothane. His palpitations have much improved with the use of metoprolol. He is denying chest discomfort, shortness of breath, lightheadedness. He has been wearing his CPAP at least 5 hours per night and still notices some daytime fatigue. He is trying to increase his physical activity with a goal of walking 2 miles daily. Recently had a CTA of coronary arteries showing mild nonobstructive coronary disease with less than 25% stenosis in the proximal LAD. is present. [facility] Medical History (Updated 12/04/24 @ 10:52 by Chantelle Arias, JUANITA-C) Cardiac arrest Depression Elevated cholesterol Surgical History H/O colonoscopy Family History Father Prostate CA Mother Dementia Social History Alcohol intake: never Patient Tobacco Use Status: Former Tobacco user Review of Systems Const All systems reviewed & are unremarkable except as noted in HPI and below ENT Denies dizziness Card Denies chest pain, Denies chest pain at rest, Denies chest pain with activity, Denies rapid heart rate, Denies pedal edema, Denies edema, Denies leg edema, Denies lightheadedness, Denies palpitations, Denies dyspnea, Denies dyspnea on exertion and Denies orthopnea Resp Denies cough, Denies dyspnea and Denies dyspnea on exertion GI Denies hematochezia and Denies change in stool character Musc Denies abnormal gait, Denies limited range of motion, Denies muscle cramps, Denies muscle weakness, Denies numbness, Denies radiating pain into limb, Denies stiffness and Denies tingling Neuro Denies abnormal gait, Denies dizziness, Denies numbness and Denies tingling Endo Denies palpitations Physical Exam Vital Signs: Last Vital Signs Pulse 50 12/04/24 10:14 BP 124/70 12/04/24 10:14 BMI result Body Mass Index 32.6 Const General: cooperative, healthy appearing, comfortable and no acute distress Orientation/consciousness: patient oriented x3 Neck Neck: Yes normal visual inspection Resp Effort & Inspection: normal respiratory effort Auscultation: clear to auscultation bilaterally, no crackles, no rales, no rhonchi and no wheezes Cardio Rate: regular rate Rhythm: regular rhythm Heart sounds: S1 normal heart sound present, S2 normal heart sound present, no gallops, no murmurs and no rubs Neuro General: patient oriented x3 Extrem General: Yes normal to inspection, No no pedal edema and No calf tenderness Psych Appearance: grossly normal Mental Status: mental status grossly normal Speech and movement: Normal speech and movement present Assessment & Plan Assessment & Plan (1) Coronary atherosclerosis: Comment: mild nonobstructive Code(s): I25.10 - Atherosclerotic heart disease of [place] coronary artery without angina pectoris Category: Medical Plan: Remote history of cardiac arrest in the setting of halothane use. Last echo 05/11/2022 showed EF 67%, mild calcification of the aortic valve, no regional wall motion abnormality. A CTA of the coronary arteries was done on 10/18/2024 showing no evidence of hemodynamically significant coronary artery disease, small calcified plaque in the proximal LAD causing less than 25% stenosis. Findings reviewed with him. Cardiac risk factor modification discussed. Recommend use of aspirin 81 mg daily if no contraindications. Recommend good cholesterol control with ideal LDL goal less than 70. Signs and symptoms of angina reviewed. Cardiology follow-up 1 year, sooner if needed. (2) Elevated cholesterol: Code(s): E78.00 - Pure hypercholesterolemia, unspecified Category: Medical Plan: [place] LDL goal less than 70. Labs done 04/25/2024 showed triglycerides 134 LDL 103. He is on fenofibrate. Will have him check fasting lipid profile at this time. Will consider statin use. (3) PVC (premature ventricular contraction): Code(s): I49.3 - Ventricular premature depolarization Category: Medical Plan: History of heart palpitations. Cardiac event monitor 01/23/2022 showed PACs and PVCs that correlated with his symptoms. He has been on metoprolol XL 25 mg daily. Palpitations currently suppressed. (4) PAC (premature atrial contraction): Code(s): I49.1 - Atrial premature depolarization Category: Medical Plan: As above (5) Cardiac arrest: Comment: s/p halothane - 1979 Code(s): I46.9 - Cardiac arrest, cause unspecified Category: Medical Plan I discussed with the patient the importance of managing his cholesterol levels to prevent further coronary artery disease progression. We talked about starting a daily baby aspirin and the potential need for statin therapy based on upcoming lab results. I emphasized the importance of maintaining physical activity and using the CPAP machine consistently. We reviewed the continuation of Metoprolol to help limit his heart palpitations and to continue to reduce caffiene intake. We agreed on a follow-up in one year, with instructions to report any new or worsening symptoms such as chest pain or dyspnea. Orders: Orders Lipid Panel Today E78.00 - Pure hypercholesterolemia, unspecified Patient Instructions: - Take metoprolol XL 25 mg daily as prescribed. - Recommend a daily baby aspirin, 81 mg, with food. - Obtain fasting cholesterol level - Use the CPAP machine every night for sleep apnea. - Stay physically active, aim to walk two miles daily. - Follow up in one year or sooner if new symptoms develop. Patient was informed and verbally consented to the use of an ambient scribe for clinic note documentation during this visit. Visit time spent on chart review, interview, assessment, orders, documentation. Coding Level of Care Code Est Pt Level 4 (16104) Complex EM visit Add On G2211 Diagnoses Coronary atherosclerosis I25.10 Elevated cholesterol E78.00 PVC (premature ventricular contraction) I49.3 PAC (premature atrial contraction) I49.1 Cardiac arrest I46.9 Time Spent (min) 32
== END 2024-12-04 10:50 | disposition home or self-care (01) ==
LOC: HO.HCS 10:09
PROVIDERS: PCP Internal Medicine; Visit Provider Nurse Practitioner Family
DX: I25.10 Atherosclerotic heart disease of native coronary artery without angina pectoris (principal); E78.00 Pure hypercholesterolemia, unspecified; I49.3 Ventricular premature depolarization; I49.1 Atrial premature depolarization; I46.9 Cardiac arrest, cause unspecified
CPT/HCPCS: 99214; G2211

== ENCOUNTER → 2024-12-04 10:08 | Outpatient (BNVA) | payer MEDICARE, OTHER, SELFPAY | PROVIDERS: PCP Internal Medicine; Visit Provider Nurse Practitioner Family | DX: I25.10 Atherosclerotic heart disease of native coronary artery without angina pectoris (principal); I49.3 Ventricular premature depolarization; I49.1 Atrial premature depolarization; I46.9 Cardiac arrest, cause unspecified; E78.00 Pure hypercholesterolemia, unspecified | CPT/HCPCS: 99212 ==

== ENCOUNTER 2024-12-05 08:41 | Outpatient (REF) | payer MEDICARE, OTHER, SELFPAY ==
--- OUTSIDE RECORDS SUMMARY | 2024-05-23 06:00 | XMS_ITS ---
Author Organization Temo Davis MD Address [address] [place] [phone] Care Team Providers Care Chief Librarian Circulation Department Name Role Phone Temo Davis Primary Care [...] Temo Davis MD [address] [place] [phone] 05/23/2024 Temo Davis PAC (premature atrial contraction) [...] Details Provider Name:Temo estrada, 04/26/2025 08:00:00 AM, [address] [place] [address], [address], [phone], Provider Name:Temo estrada, 05/03/2025 09:30:00 AM, [address] [place] [address], [place] [address], [place], [place], [phone], Progress Notes * Salvatore BLUM JrDOB:1954 (69 yo M)Acc No.[id number]:05/23/2024 Progress Notes Patient: Salvatore Solorio Provider: Hansel Davis MD :1955 A ge:69 Y S ex:Male Date:05/23/2024 Address:[address] [place] [address], [facility] Subjective: * Chief Complaints: * C T [...] MD Date: 1 07/24/2023 Generated for Gus back/Marisela/eTmadelinsmitting on: 0 12/05/2024 09:01 AM EDT History and Physical Notes * [...]
[2024-12-05 09:42] LABS: Cholesterol 165 mg/dL (<200); HDL Cholesterol 36 mg/dL (>40); LDL Cholesterol Calculated 92 mg/dL (<100); Triglycerides 189 mg/dL (<150)
== END 2024-12-05 08:42 | disposition home or self-care (01) ==
LOC: HO.LAB 08:41
PROVIDERS: PCP Internal Medicine; Visit Provider Nurse Practitioner Family
DX: E78.00 Pure hypercholesterolemia, unspecified (principal)
CPT/HCPCS: 36415; 80061

== ENCOUNTER 2025-04-27 11:08 | Outpatient (REF) | payer MEDICARE, OTHER, SELFPAY ==
[2025-04-27 11:12] LABS: MANUAL DIFF FLAG NO
[2025-04-27 11:35] LABS: Hematocrit 51.5 % (42.0-52.0); Hemoglobin 17.3 g/dl (14.0-18.0); Imm Gran Abs Auto 0.04 X10*3/uL (0.00-0.03); Imm Gran Pct Auto 0.5 % (0.0-0.4); Lymphocytes Absolute Auto 2.7 X10*3/uL (1.2-4.9); Mean Corpuscular HGB Conc 33.6 g/dl (31.0-36.0); Mean Corpuscular Hemoglobin 29.4 pg (27.0-33.0); Mean Corpuscular Volume 87.6 fL (80.0-98.0); NRBC Abs Auto 0.000 X10*3/uL (0.0-0.012); NRBC Pct Auto 0.0 /100WBC (0.0-0.2); Platelet Count 215 X10*3/uL (160-400); Red Blood Count 5.88 X10*6/uL (4.60-5.80); White Blood Count 8.0 X10*3/uL (4.8-10.8)
[2025-04-27 11:39] LABS: Appearance Urine Clear; Glucose Urine UA Negative (Negative); PH 6.0 (5.0-9.0); Specific Gravity - Urine 1.025 (1.005-1.025)
[2025-04-27 11:56] LABS: Alanine Aminotransferase 32 U/L (0-40); Albumin Level 4.3 g/dL (3.5-5.0); Alkaline Phosphatase 127 U/L (39-117); Anion Gap 12 (12-20); Aspartate Amino Transferase 25 U/L (5-37); Blood Urea Nitrogen 16 mg/dL (9-16); Calcium 8.9 mg/dL (8.4-10.2); Carbon Dioxide 27 mmol/L (22-29); Chloride 109 mmol/L (96-108); Cholesterol 143 mg/dL (<200); Estimated Glomerular Filt Rate > 60; HDL Cholesterol 37 mg/dL (>40); Potassium 4.4 mmol/L (3.3-5.1); Sodium 144 mmol/L (135-145); Total Protein 6.3 g/dL (6.5-8.0); Triglycerides 160 mg/dL (<150)
[2025-04-27 12:12] LABS: PSA,Total (Free>4and<10) 5.01 ng/mL (0.00-4.00)
[2025-04-27 12:32] LABS: Microalbum/Creatinine Ratio Ur 5.1 ug/mg cr (<30)
[2025-04-30 13:13] LABS: Free Prostate Spec Ag 0.9 ng/mL; Percent Free Prostate Spec Ag 18 % (calc) (>25)
== END 2025-04-27 11:09 | disposition home or self-care (01) ==
LOC: HO.LNP 11:08
PROVIDERS: Visit Provider Internal Medicine
DX: I10 Essential (primary) hypertension (principal); R73.09 Other abnormal glucose; E78.00 Pure hypercholesterolemia, unspecified; N40.0 Benign prostatic hyperplasia without lower urinary tract symptoms
CPT/HCPCS: 80053; 80061; 81001; 82043; 82570; 83036; 84153; 84154; 85025

== ENCOUNTER 2025-05-29 09:00 | Emergency (ER) | payer MEDICARE, OTHER, SELFPAY ==
--- OUTSIDE RECORDS SUMMARY | 2024-05-23 05:00 | XMS_ITS ---
Author Organization Temo Davis MD Address [address] [place] [phone] Care Team Providers Care Health Policy Analyst Name Role Phone Temo Davis Primary Care Provider Allergies Allergen (clinical drug ingredient) Drug/Non Drug Allergy documented on EMR Reaction Allergy Type Onset Date Status hallothane (uncoded) cardiac arrest Allergy Active REASON FOR VISIT CT results per Dr Davis, Accompanied by Medications Medication SIG (Take, Route, Frequency, Duration) Notes Start Date End Date Status Metoprolol Succinate ER 50 MG 1 tablet Orally Once a day for 30 days 05/01/2024 Active Fenofibrate 145 MG TAKE 1 TABLET BY ONEIL TH EVERY DAY Active Tamsulosin HCl 0.4 MG TAKE 1 CAPSULE BY MOUTH EVERY DAY Active ProAir HFA 108 (90 Base) MCG/ACT 2 puffs as needed Inhalation every 4 hrs for 30 days 09/18/2013 Not-Taking Metoprolol Succinate ER 25 MG 1 tablet Orally Once a day for 30 days 05/23/2024 Active Escitalopram Oxalate 10 MG TAKE 1 TABLET BY MOUTH EVERY DAY for 90 Active Vital Signs Blood pressure systolic 142 mm Hg 05/23/20 24 Blood pressure diastolic 80 mm Hg 024 Height 70.5 in 05/23/2024 Weight 228 lbs 05/23/2024 BMI 32.25 kg/m2 05/23/2024 Encounters Encounter Location Date Provider Diagnosis Temo Davis MD [address] [place] [phone] 05/23/2024 Temo Davis PAC (premature atrial contraction) I49.1 ; Dysthymia F34.1 and Right flank pain R10.9 Assessments Encounter Date Diagnosis (ICD Code) Assessment Notes Treatment Notes Treatment Clinical Notes Section Notes 05/23/2024 PAC (premature atrial contraction) (ICD-10 - I49.1) patient verbalized understanding of the medication and directions for use, has done well on metoprolol but makes him too sleepy, Total time spent on the date of the encounter is 35 minutes including both face to face time spent and time spent reviewing documentation, pertinent lab data, studies and counseling the patient. 05/23/2024 Dysthymia (ICD-10 - F34.1) 05/23/2024 Right flank pain (ICD-10 - R10.9) went over the cat scan of the abdomen. only finding was a fatty liver and advised weight loss for that. after that he started to complain that he had a tingling in flank and it goes around. sounds as though it is a pinched nerve but not bad enough to do anything about it Plan Of Treatment Medication Medication Name Sig Start Date Stop Date Notes Metoprolol Succinate ER 25 MG 1 tablet O rally Once a day for 30 days 05/23/2024 Treatment Notes Assessment Notes PAC (premature atrial contraction) patie nt verbalized understanding of the medication and directions for use, has done well on metoprolol but makes him too sleepy, Total time spent on the date of the encounter is 35 minutes including both face to face time spent and time spent reviewing documentation, pertinent lab data, studies and counseling the patient. Right flank pain went over the cat sc an of the abdomen. only finding was a fatty liver and advised weight loss for that. after that he started to complain that he had a tingling in flank and it goes around. sounds as though it is a pinched nerve but not bad enough to do anything about it Next Appt Details Provider Name:Temo estrada, 05/06/2026 07:15:00 AM, [address] [place] [address], [address], [phone], Provider Name:Temo estrada, 05/13/2026 10:30:00 AM, [address] [place] [address], [place] [address], [place], [place], [phone], Progress Notes * Salvatore BLUM JrDOB:1954 (69 yo M)Acc No.[id number]:05/23/2024 Progress Notes Patient: Salvatore Solorio Provider: Hansel Davis MD :1955 A ge:69 Y S ex:Male Date:05/23/2024 Address:[address] [place] [address], [facility] Subjective: * Chief Complaints: * C T results per Dr Venturaccompanied by * HPI: S ymptom(s): patient is a 69 yo male here to discuss results of recent CT scan, gets a little pinching and pins and needles in flank. can walk 2 miles. went over cat scan of abdomen which showed fatty liver. * ROS: G eneral/Constitutional: Denies C hills. D enies F atigue. D enies F ever. D enies H eadache. E NT: Patient denies d ecreased sense of smell , any loss of taste , sore throat. D enies S ore throat. R espiratory: Denies C ough. D enies S hortness of breath at rest. D enies S hortness of breath with exertion. G astrointestinal: Denies D iarrhea. D enies N ausea. M usculoskeletal: Patient denies m uscle aches. P eripheral Vascular: Patient denies r ed and blue toes. * Medical History: * Surgical History: * Hospitalization/Major Diagno stic Procedure: * Medications: T akingEscitalopram Oxalate 10 MG Tablet TAKE 1 TABLET BY MOUTH EVERY DAY Metoprolol Succinate ER 50 MG Tablet Extended Release 24 Hour 1 tablet Orally Once a dayFenofibrate 145 MG Tablet TAKE 1 TABLET BY MOUTH EVERY DAY Tamsulosin HCl 0.4 MG Capsule TAKE 1 CAPSULE BY MOUTH EVERY DAY Taking Escitalopram Oxalate 10 MG Tablet TAKE 1 TABLET BY MOUTH EVERY DAY Taking Metoprolol Succinate ER 50 MG Tablet Extended Release 24 Hour 1 tablet Orally Once a dayTaking Fenofibrate 145 MG Tablet TAKE 1 TABLET BY MOUTH EVERY DAY Taking Tamsulosin HCl 0.4 MG Capsule TAKE 1 CAPSULE BY MOUTH EVERY DAY Not-Taking/PRNProAir HFA 108 (90 Base) MCG/ACT Aerosol Solution 2 puffs as needed Inhalation every 4 hrsMedication List reviewed and reconciled with the patientNot-Taking/PRN ProAir HFA 108 (90 Base) MCG/ACT Aerosol Solution 2 puffs as needed Inhalation every 4 hrsMedication List reviewed and reconciled with the patient * Allergies: h allothane: cardiac arrestyes[Allergies Verified] Objective: * Vitals: H t: 70.5, Wt:228, BMI:32.25, BP:142/80, Repeat BP:120/84. * Examination: G eneral Examination: GENERAL APPEARANCE: a lert, well hydrated, in no distress.? HEAD: n ormocephalic. SKIN: g ood turgor. HEART: n o murmurs, rubs, gallops , regular rate and rhythm. LUNGS: n o wheezes, rales, rhonchi , good air movement , clear to auscultation bilaterally. Assessment: * Assessment: 1. P AC (premature atrial contraction) - I49.1 (Primary) 2 . D ysthymia - F34.1 3 .?Right flank pain - R10.9 Plan: * Treatment: 2. R ight flank pain Notes: went over the cat scan of the abdomen. only finding was a fatty liver and advised weight loss for that. after that he started to complain that he had a tingling in flank and it goes around. sounds as though it is a pinched nerve but not bad enough to do anything about it * Procedure Codes: * * Sign off status: Completed true * Provider: Hansel Davis MD Date: 07/24/2023 Generated for Gus back/Mairsela/Rosaleesmitting on: 07/30/2024 12:15 PM EST History and Physical Notes * HPI (History of Present Illness) Category Sub-Category Detail Notes Category Not es Symptom(s) patient is a 69 yo male here to discuss results of recent CT scan, gets a little pinching and pins and needles in flank. can walk 2 miles. went over cat scan of abdomen which showed fatty liver. Examination Category Sub-Category Detail Notes Category Not es General Examination GENERAL APPEARANCE: alert, w ell hydrated, in no distress HEAD: normocephalic HEART: no murmurs, rubs, ga llops , regular rate and rhythm LUNGS: no wheezes, rales, r honchi , good air movement , clear to auscultation bilaterally SKIN: good turgor
--- OUTSIDE RECORDS SUMMARY | 2024-07-24 07:45 | XMS_ITS ---
Author Organization Temo Davis MD Address [address] [place], [place] [id number] Care Team Providers Care Enrobing Machine Operator Name Role Phone Temo Davis Primary Care Provider Allergies Allergen (clinical drug ingredient) Drug/Non Drug Allergy documented on EMR Reaction Allergy Type Onset Date Status hallothane (uncoded) cardiac arrest Allergy Active REASON FOR VISIT COUGH, CONGETD . WILL TEST FOR COVID BEFORE TELEHEALTH Negative for Covid, c/o fatigue headache hada sore throat, productive cough and congestion, cannot smell, runny nose x 2 weeks, [phone] Medications Medication SIG (Take, Route, Frequency, Duration) Notes Start Date End Date Status Escitalopram Oxalate 10 MG TAKE 1 TABLET BY MOUTH EVERY DAY for 90 Active Albuterol Sulfate HFA 108 (90 Base) MCG/ACT 1 puff as needed Inhalation every 4 hrs for 30 days 07/24/2024 Active Tamsulosin HCl 0.4 MG TAKE 1 CAPSULE BY MOUTH EVERY DAY Active Metoprolol Succinate ER 25 MG 1 tablet Orally Once a day for 30 days 05/23/2024 Active ProAir HFA 108 (90 Base) MCG/ACT 2 puffs as needed Inhalation every 4 hrs for 30 days 09/18/2013 Not-Taking Zithromax Z-Dennis 250 MG 2 tablet on the irs day, then 1 tablet daily for 4 days Orally Once a day for 5 day(s) 07/24/2024 Active Fenofibrate 145 MG TAKE 1 TABLET BY ONEIL TH EVERY DAY Active Problems Problem Type SNOMED Code ICD Code Onset Dates Problem Status W/U Status Risk Notes Problem [id number] Purulent bronchitis (J41.1) Active confirmed Vital Signs Height 70.5 in 07/24/2024 weight is 223 BP not taken n o temp Encounters Encounter Location Date Provider Diagnosis Temo Davis MD [address] [place] [phone] 07/24/2024 Temo Davis Purulent bronchitis J41.1 Assessments Encounter Date Diagnosis (ICD Code) Assessment Notes Treatment Notes Treatment Clinical Notes Section Notes 07/24/2024 Purulent bronchitis (ICD-10 - J41.1) Plan Of Treatment Medication Medication Name Sig Start Date Stop Date Notes Albuterol Sulfate HFA 108 (9 0 Base) MCG/ACT 1 puff as needed Inhalation every 4 hrs for 30 days 07/24/2024 Zithromax Z-Dennis 250 MG 2 tablet on the f irst day, then 1 tablet daily for 4 days Orally Once a day for 5 day(s) 07/24/2024 Next Appt Details Provider Name:Temo estrada, 05/06/2026 07:15:00 AM, [address] [place] [address], [place] [address], [place], [place], [phone], Provider Name:Temo estrada, 05/13/2026 10:30:00 AM, [address] [place] [address], [address], [phone], Progress Notes * Salvatore BLUM JrDOB:1954 (69 yo M)Acc No.[id number]:07/24/2024 Patient: Joshua Salvatore KINSEY Jr Provider: Hansel Davis MD :1955 A ge:69 Y S ex:Male Date:07/24/2024 Address:[address] [place] [address], [id number] Subjective: * Chief Complaints: * ISELA MONROY . WILL TEST FOR COVID BEFORE TELEHEALTH Negative for CovidC/o fatigue headache had a sore throat, productive cough and congestion, cannot smell, runny nose x 2 [phone] * HPI: S ymptom(s): Telehealth L ocation of provider rendering services: [address], [address], L ocation of patient: a t address listed in demographics for today's visit, P atient identification confirmed using: ROSALINDA Portillo ame, T elehealth method: V ideo conference where patient is visible to the provider of care, C onsent: P atient verbally consented to treatment, Patient verbally consented to billing insurance company, Patient informed of any privacy concerns related to method of visit, T otal time spend talking with patient (minutes) 2 0. patient is a 69 yo male video teleheatlh visit, has cough and cold or 2 weeks. lot of coughing at night. not likie the flu. no ferver no vomiting tired all the time. wakes up tired and lays back down. * ROS: G eneral/Constitutional: Denies C hills. A dmits F atigue. D enies F ever. A dmits H eadache. E NT: Patient denies d ecreased sense of smell, any loss of taste, sore throat. D enies S ore throat. R espiratory: Admits C ough. D enies S hortness of breath at rest. D enies S hortness of breath with exertion. A dmits S putum production. G astrointestinal: Denies D iarrhea. D enies N ausea. M usculoskeletal: Patient denies m uscle aches. P eripheral Vascular: Patient denies r ed and blue toes. * Medical History: * Surgical History: * Hospitalization/Major Diagno stic Procedure: * Medications: T akingEscitalopram Oxalate 10 MG Tablet TAKE 1 TABLET BY MOUTH EVERY DAY Fenofibrate 145 MG Tablet TAKE 1 TABLET BY MOUTH EVERY DAY Tamsulosin HCl 0.4 MG Capsule TAKE 1 CAPSULE BY MOUTH EVERY DAY Metoprolol Succinate ER 25 MG Tablet Extended Release 24 Hour 1 tablet Orally Once a day Taking Escitalopram Oxalate 10 MG Tablet TAKE 1 TABLET BY MOUTH EVERY DAY Taking Fenofibrate 145 MG Tablet TAKE 1 TABLET BY MOUTH EVERY DAY Taking Tamsulosin HCl 0.4 MG Capsule TAKE 1 CAPSULE BY MOUTH EVERY DAY Taking Metoprolol Succinate ER 25 MG Tablet Extended Release 24 Hour 1 tablet Orally Once a day Not-Taking/PRNProAir HFA 108 (90 Base) MCG/ACT Aerosol Solution 2 puffs as needed Inhalation every 4 hrs Not-Taking/PRN ProAir HFA 108 (90 Base) MCG/ACT Aerosol Solution 2 puffs as needed Inhalation every 4 hrs DiscontinuedMetoprolol Succinate ER 50 MG Tablet Extended Release 24 Hour 1 tablet Orally Once a day Medication List reviewed and reconciled with the patientDiscontinued Metoprolol Succinate ER 50 MG Tablet Extended Release 24 Hour 1 tablet Orally Once a day Medication List reviewed and reconciled with the patient * Allergies: h allothane: cardiac arrestyes[Allergies Verified] Objective: * Vitals: H t: 70.5. weight is 223 BP not taken no temp. * Examination: G eneral Examination: GENERAL APPEARANCE: a lert, well hydrated, in no distress.? HEAD: n ormocephalic. Assessment: * Assessment: 1. P urulent bronchitis - J41.1 (Primary) Plan: * Treatment: * Procedure Codes: * * Sign off status: Completed true * Provider: Hansel Davis MD Date: 0 07/24/2024 Generated for Gus back/Marisela/eTransmitting on: 1 07/30/2024 12:17 PM EST History and Physical Notes * HPI (History of Present Illness) Category Sub-Category Detail Notes Category Not es Symptom(s) Telehealth Location of [facility] rendering services:: [address], [address] patient is a 69 yo male video teleheatlh visit, has cough and cold or 2 weeks. lot of coughing at night. not likie the flu. no ferver no vomiting tired all the time. wakes up tired and lays back down Location of patient:: at address listed in demographics for today's visit Patient identification confirmed using:: Name, Telehealth method:: Video co nference where patient is visible to the provider of care Consent:: Patient verbally c onsented to treatment, Patient verbally consented to billing insurance company, Patient informed of any privacy concerns related to method of visit Total time spend talking with patient (m inutes): 20 Examination Category Sub-Category Detail Notes Category Not es General Examination GENERAL APPEARANCE: alert, w ell hydrated, in no distress HEAD: normocephalic
--- OUTSIDE RECORDS SUMMARY | 2024-08-18 05:00 | XMS_ITS ---
Author Organization Temo Davis MD Address [address] [place], [place] [phone] Care Team Providers Care Classroom Instructional Aide Name Role Phone Temo Davis Primary Care Provider Allergies Allergen (clinical drug ingredient) Drug/Non Drug Allergy documented on EMR Reaction Allergy Type Onset Date Status hallothane (uncoded) cardiac arrest Allergy Active Results Component Value Reference Range Notes Hemoglobin A1c Reviewed date:08/18/2024 09:54:18 AM Interpretation: Performing Lab: Notes/Report: Hemoglobin A1c 5.2 Glucose, finger stick Reviewed date:08/18/2024 09:49:28 AM Interpretation: Performing Lab: Notes/Report: Value 91 REASON FOR VISIT 3 month Medications Medication SIG (Take, Route, Frequency, Duration) Notes Start Date End Date Status Tamsulosin HCl 0.4 MG TAKE 1 CAPSULE BY MOUTH EVERY DAY Active Metoprolol Succinate ER 25 MG 1 tablet Orally Once a day for 30 days 05/23/2024 Active Fenofibrate 145 MG TAKE 1 TABLET BY ONEIL TH EVERY DAY Active Albuterol Sulfate HFA 108 (90 Base) MCG/ACT 1 puff as needed Inhalation every 4 hrs for 30 days 07/24/2024 Active ProAir HFA 108 (90 Base) MCG/ACT 2 puffs as needed Inhalation every 4 hrs for 30 days 09/18/2013 Not-Taking Escitalopram Oxalate 10 MG TAKE 1 TABLET BY MOUTH EVERY DAY for 90 Active Problems Problem Type SNOMED Code ICD Code Onset Dates Problem Status W/U Status Risk Notes Problem Obstructive sleep apnea syndrome (26934257) CAMILLA (obstructiv e sleep apnea) (G47.33) Active confirmed Vital Signs Blood pressure systolic 142 mm Hg 08/19/19 25 Blood pressure diastolic 86 mm Hg 025 Height 70.5 in 08/18/2024 Weight 227 lbs 08/18/2024 BMI 32.11 kg/m2 08/18/2024 Encounters Encounter Location Date Provider Diagnosis Temo Davis MD [address] [place] [address] [place] [phone] 08/18/2024 Temo Davis Prediabetes R73.09 and CAMILLA (obstructive sleep apnea) G47.33 Assessments Encounter Date Diagnosis (ICD Code) Assessment Notes Treatment Notes Treatment Clinical Notes Section Notes 08/18/2024 Prediabetes (ICD-10 - R73.09) stable, no need for mdication at this time 08/18/2024 CAMILLA (obstructive sleep apnea) (ICD-10 - G47.33) encouraged to use cpap Plan Of Treatment Treatment Notes Assessment Notes Prediabetes stable, no need for mdication at this time CAMILLA (obstructive sleep apnea) encouraged to use cpap Next Appt Details Provider Name:Temo estrada, 05/06/2026 07:15:00 AM, [address] [place] [address], [address] [place] [address], [phone], Provider Name:Temo estrada, 05/13/2026 10:30:00 AM, [address] [place] [address], [address] [place] [address], [phone], Progress Notes * Salvatore BLUM JrDOB:1954 (69 yo M)Acc No.[id number]:08/18/2024 Progress Notes Patient: Joshua Salvatore KINSEY Jr Provider: Hansel Davis MD :1955 A ge:69 Y S ex:Male Date:08/18/2024 Address:[address] [place] [address], [place] [id number] Subjective: * Chief Complaints: * 3 month * HPI: S ymptom(s): patient is a 69 yo male here for 3 month follow up visit, saw dr gallo. cut back on metoprolol and palpitations resolved/ had mri prostate is negative. * ROS: G eneral/Constitutional: Denies C hills. D enies F atigue. D enies F ever. D enies H eadache. E NT: Patient denies d ecreased sense of smell, any loss of taste, sore throat. D enies S ore throat. E ndocrine: Denies D izziness. D enies E xcessive sweating.?Denies E xcessive thirst. D enies F requent urination. R espiratory: Denies C ough. D enies [...] Hour 1 tablet Orally Once a day Albuterol Sulfate HFA 108 (90 Base) MCG/ACT Aerosol Solution 1 puff as needed Inhalation every 4 hrs Taking Escitalopram Oxalate 10 MG Tablet TAKE 1 TABLET BY MOUTH EVERY DAY Taking Fenofibrate 145 MG Tablet TAKE 1 TABLET BY MOUTH EVERY DAY Taking Tamsulosin HCl 0.4 MG Capsule TAKE 1 CAPSULE BY MOUTH EVERY DAY Taking Metoprolol Succinate ER 25 MG Tablet Extended Release 24 Hour 1 tablet Orally Once a day Taking Albuterol Sulfate HFA 108 (90 Base) MCG/ACT Aerosol Solution 1 puff as needed Inhalation every 4 hrs Not-Taking/PRNProAir HFA 108 (90 Base) MCG/ACT Aerosol Solution 2 puffs as needed Inhalation every 4 hrs Medication List reviewed and reconciled with the patientNot-Taking/PRN ProAir HFA 108 (90 Base) MCG/ACT Aerosol Solution 2 puffs as needed Inhalation every 4 hrs Medication List reviewed and reconciled with the patient * Allergies: h allothane: cardiac arrestyes[Allergies Verified] Objective: * Vitals: H t: 70.5, Wt: 227, BMI:32.11, BP:142/86, Repeat BP:120/84, Wt-k.97. * Examination: G eneral Examination: GENERAL APPEARANCE: a lert, well hydrated, in no distress.? SKIN: g ood turgor. HEART: n o murmurs, rubs, gallops, regular rate and rhythm.? LUNGS: n o wheezes, rales, rhonchi, good air movement, clear to auscultation bilaterally. Assessment: * Assessment: 1. P rediabetes - R73.09 (Primary) 2 . O SA (obstructive sleep apnea) - G47.33 Plan: * Treatment: Value Reference Range H emoglobin A1c 5.2 ?LAB: Glucose, finger stick (Collection Date & Time - 08/18/2024)* Value Reference Range V alue 91 Notes: stable, no need for mdication at this time??2.?CAMILLA (obstructive sleep apnea)? Notes: encouraged to use cpap?? * Procedure Codes: 8 2947 ASSAY, GLUCOSE, BLOOD QUANT, Modifiers: QW 55976 GLYCATED HEMOGLOBIN TEST, Modifiers: QW * * Sign off status: Completed true * Provider: Hansel Davis MD Date: 0 08/18/2024 Generated for Gus ng/Fasommerg/eTransmitting on: 1 07/30/2024 12:16 PM EST History and Physical Notes * HPI (History of Present Illness) Category Sub-Category Detail Notes Category Not es Symptom(s) patient is a 69 yo male here for 3 month follow up visit, saw dr galol. cut back on metoprolol and palpitations resolved/ had mri prostate is negative Examination Category Sub-Category Detail Notes Category Not es General Examination GENERAL APPEARANCE: alert, w ell hydrated, in no distress HEART: no murmurs, rubs, ga llops, regular rate and rhythm LUNGS: no wheezes, rales, r honchi, good air movement, clear to auscultation bilaterally SKIN: good turgor
--- OUTSIDE RECORDS SUMMARY | 2024-12-25 04:08 | XMS_ITS ---
Author Organization Temo Davis MD Address [address] [place] [phone] Care Team Providers Care Psych Np Name Role Phone Temo Davis Primary Care Provider REASON FOR VISIT refill Medications Medication SIG (Take, Route, Frequency, Duration) Notes Start Date End Date Status Escitalopram Oxalate 10 MG 1 tablet Oral ly Once a day for 90 days Active Encounters Encounter Location Date Provider Diagnosis Temo Davis MD [address] [place] [address] [place] [phone] 12/25/2024 Temo Davis Plan Of Treatment Medication Medication Name Sig Start Date Stop Date Notes Escitalopram Oxalate 10 MG 1 tablet Oral ly Once a day for 90 days Next Appt Details Provider Name:Temo estrada, 05/06/2026 07:15:00 AM, [address] [place] [address], [phone], Provider Name:Temo estrada, 05/13/2026 10:30:00 AM, [address] [place] [address], [phone], Progress Notes * Salvatore BLUM JrDOB:1954 (69 yo M)Acc No.[id number]:12/25/2024 Patient: Joshua Salvatore KINSEY Jr :1955 A ge:69 Y S ex:Male Address:[address] [place] [address], [place] [address] * Refills Refill Escitalopram Oxalate Tablet, 10 MG, Orally, 90 Tablet, 1 tablet, Once a day, 90 days, Refills=3 * true * Date: Generated for Gus back/Marisela/Erica on: 07/30/2024 12:16 PM EST
--- OUTSIDE RECORDS SUMMARY | 2025-02-13 08:01 | XMS_ITS ---
Author Organization Temo Davis MD Address [address] [place] [phone] Care Team Providers Care Tanker Driver Name Role Phone Temo Davis Primary Care Provider REASON FOR VISIT refill Encounters Encounter Location Date Provider Diagnosis Temo Davis MD [address] [place] [address] [place] [phone] 02/13/2025 Temo Davis PAC (premature atrial contraction) I49.1 Assessments Encounter Date Diagnosis (ICD Code) Assessment Notes Treatment Notes Treatment Clinical Notes Section Notes 02/13/2025 PAC (premature atrial contraction) (ICD-10 - I49.1) Plan Of Treatment Next Appt Details Provider Name:Temo estraad, 05/06/2026 07:15:00 AM, [address] [place] [address], [phone], Provider Name:Temo estrada, 05/13/2026 10:30:00 AM, [address] [place] [address], [phone], Progress Notes * Salvatore BLUM JrDOB:1954 (70 yo M)Acc No.[id number]:02/13/2025 Patient: Joshua Salvatore KINSEY Jr :1955 A ge:70 Y S ex:Male Address:[address] [place] [phone] * true * Date: Generated for Gus back/Marisela/Erica on: 07/30/2024 12:16 PM EST
--- OUTSIDE RECORDS SUMMARY | 2025-02-19 04:15 | XMS_ITS ---
Author Organization Temo Davis MD Address [address] [place] [phone] Care Team Providers Care Manufactured Buildings Repairer Name Role Phone Temo Davis Primary Care [...] Temo Davis MD [address] [place] [phone] 02/19/2025 Temo Davis PAC (premature atria l [...] Reason: Provider Name:Temo estrada, 05/06/2026 07:15:00 AM, [address] [place] [address], [address], [phone], Provider Name:Temo estrada, 05/13/2026 10:30:00 AM, [address] [place] [address], [place] [address], [place], [place], [phone], Progress Notes * MARIAN Salvatore Hamm JrDOB:1954 (70 yo M)Acc No.[id number]:02/19/2025 Progress Notes Patient: Salvatore BURGOS Hansel Sheehan Provider: Hansel Davis MD :1955 A ge:70 Y S ex:Male Date:02/19/2025 Address:[address] [place], [place] [phone] Subjective: * Chief Complaints: * C HECK [...] 02/19/2025 Generated for Gus back/Marisela/Adalbertoitting on: 1 07/30/2024 12:16 PM EST History [...]
--- OUTSIDE RECORDS SUMMARY | 2025-02-23 14:03 | XMS_ITS ---
Author Organization Temo Davis MD Address [address] [place] [phone] Care Team Providers Care Personal Banker Name Role Phone Temo Davis Primary Care Provider REASON FOR VISIT Blood Preasure Medications Medication SIG (Take, Route, Fr equency, Duration) Notes Start Date End Date Status Valsartan 80 MG 1 tablet Orally Once a day for 30 days 02/26/2025 Active Encounters Encounter Location Date Provider Diagnosis Temo Davis MD [address] [place], [place] [address] [address] [place] [phone] 02/23/2025 Temo Davis Plan Of Treatment Medication Medication Name Sig Start Date Stop Date Notes Valsartan 80 MG 1 tablet Orally Once a day for 30 days Next Appt Details Provider Name:Temo estrada, 05/06/2026 07:15:00 AM, [address] [place] [address], [phone], Provider Name:Temo estrada, 05/13/2026 10:30:00 AM, [address] [place] [address], [phone], Progress Notes * Salvatore BLUM JrDOB:1954 (70 yo M)Acc No.[id number]:02/23/2025 Patient: Joshua Salvatore KINSEY Jr :1955 A ge:70 Y S ex:Male Address:[address] [place] [address], [place] [address] * Refills Start Valsartan Tablet, 80 MG, Orally, 30, 1 tablet, Once a day, 30 days, Refills=5 * true * Date: Generated for Gus back/Marisela/Erica on: 1 07/30/2024 12:16 PM EST
--- OUTSIDE RECORDS SUMMARY | 2025-03-25 10:21 | XMS_ITS ---
Author Organization Temo Davis MD Address [address] [place] [phone] Care Team Providers Care Director Specialty Name Role Phone Temo Davis Primary Care Provider REASON FOR VISIT New Refill Request Medications Medication SIG (Take, Route, Frequency, Duration) Notes Start Date End Date Status Metoprolol Succinate ER 50 MG TAKE 1 TABLET BY MOUTH DAILY Orally Once a day for 90 days Active Encounters Encounter Location Date Provider Diagnosis Temo Davis MD [address] [place] [phone] 03/25/2025 Temo Davis Essential hypertension I10 Assessments [...] Details Provider Name:Temo estrada, 05/06/2026 07:15:00 AM, [address] [place] [address], [address], [phone], Provider Name:Temo estrada, 05/13/2026 10:30:00 AM, [address] [place] [address], [address], [phone], Progress Notes * Salvatore BLUM JrDOB:1954 (70 yo M)Acc No.[id number]:03/25/2025 Patient: Salvatore BURGOS Jr :1955 A ge:70 Y S ex:Male Address:[address] [place] [phone] * Refills Refill Metoprolol Succinate ER Tablet Extended Release 24 Hour, 50 MG, Orally, 90, TAKE 1 TABLET BY MOUTH DAILY, Once a day, 90 days, Refills=3 * true * Date: Generated for Gus back/Marisela/Rosaleesmitting on: 1 07/30/2024 12:17 PM EST
--- OUTSIDE RECORDS SUMMARY | 2025-04-27 03:00 | XMS_ITS ---
Author Organization Temo Davis MD Address [address] [place], [place] [id number] Care Team Providers Care Greige Goods Inspector Name Role Phone Temo Davis Primary Care Provider Results Component Value Reference Range Notes Complete Blood Count Auto Di ff Reviewed date:04/27/2025 12:39:17 PM Interpretation: Performing Lab:[facility], [address] [place] [phone] Notes/Report: White Blood Count 8.0 4.8-10.8 X10*3/uL [...] Panel Reviewed date:04/27/2025 12:18:43 PM Interpretation: Performing Lab:[address] [phone] Notes/Report: Triglycerides 160 <150 mg/dL Desirable Triglyceride: [...] (Free>4and<10) Reviewed date:05/04/2025 11:07:25 AM Interpretation:05-03-2025 Performing Lab:[address] [phone] Notes/Report: PSA,Total (Free>4and<10) 5.01 0.00-4.00 ng/mL PSA methodology: Person Alinity i Chemiluminescent Microparticle Immunoassay (CMIA) Microalbumin, Random Reviewed date:04/27/2025 12:37:53 PM Interpretation: Performing Lab:[facility], [address] [place] [phone] Notes/Report: Creatinine Urine 136.23 Microalbumin Urine 7.0 Microalbum/Creatinine Ratio Ur 5.1 <30 ug/mg cr Albumin/Creatinine Ratio Reference Ranges: Normal: < 30 ug/mg creatinine Microalbuminuria: 30 - 300 ug/mg creatinine Clinical Albuminuria: > 300 ug/mg creatinine Hemoglobin A1c Reviewed date:04/27/2025 12:19:11 PM Interpretation: Performing Lab:[facility], [address] [place] [phone] Notes/Report: Hemoglobin A1c % 5.6 <6.0 % [...] average glucose, using the formula of the I2V-Wicwlwd Average Glucose study (ADAG), Diabetes Care, Vol.31,#8, Jan. 2007 UA ClnCatch+Micro w/rflx Cul t Reviewed date:04/27/2025 12:50:03 PM Interpretation: Performing Lab:[facility], [address] [place] [phone] Notes/Report: Urine, Clean Catch Color Urine Yellow Appearance Urine Clear PH 6.0 5.0-9.0 Glucose Urine UA Negative Negative mg/dL Urine Blood Negative Negative Specific [place] - Urine 1.025 1.005-1.025 Urine Protein Negative [...] Date Provider Diagnosis Temo Davis MD [address] [place], [place] [phone] 04/27/2025 Temo Bombardier Prediabetes R73.09 ; Pure [...] Pending Test Test Name Order Date Comprehensive [place]. Panel Fast Next Appt Details Provider Name:Temo Cheatham ier, 05/06/2026 07:15:00 AM, [address] [place] [address], [address], [phone], Provider Name:Temo Cheatham ier, 05/13/2026 10:30:00 AM, [address] [place] [address], [address], [phone], Progress Notes * Salvatore BLUM JrDOB:1954 (70 yo M)Acc No.[id number]:04/27/2025 Progress Note Patient: Joshua KINSEY Salvatore Hamm Provider: Hansel Davis MD :1955 A ge:70 Y S ex:Male Date:04/27/2025 Address:[address] [place], [place] [id number] Subjective: * Chief Complaints: * 1 . Fasting yearly labs. * Medical History: Objective: * Vitals: Assessment: * Assessment: 1. P rediabetes - R73.09 (Primary) 2 . P ure hypercholesterolemia - E78.00? 3. E ssential hypertension - I10 4 . P rostatism - N40.0? Plan: * Treatment: 2. P ure hypercholesterolemia L AB: Comprehensive [place]. Panel Fast L AB: Complete Blood Count [...] 3. E ssential hypertension L AB: Comprehensive [place]. Panel Fast L AB: Complete Blood Count [...] AM) 4. P rostatism L AB: Comprehensive [place]. Panel Fast L AB: Complete Blood Count [...] Date: 06/27/2024 Generated for Gus back/Marisela/Erica on: 07/30/2024 12:16 PM EST
--- OUTSIDE RECORDS SUMMARY | 2025-05-03 04:30 | XMS_ITS ---
Author Organization Temo Davis MD Address [address] [place], [place] [id number] Care Team Providers Care Operating Room Orderly Name Role Phone Temo Davis Primary Care Provider Allergies Allergen (clinical drug ingredient) Drug/Non Drug Allergy documented on EMR Reaction Allergy Type Onset Date Status hallothane (uncoded) cardiac arrest Allergy Active Results Component Value Reference Range Notes Occult Blood, Stool, Guaiac Reviewed date:05/03/2025 12:36:30 PM Interpretation:Negative Performing Lab: Notes/Report: Negative Occult Blood, Stool, Guaiac neg REASON FOR VISIT review labs/ must see PSA, c/o bilateral ankle edema x 6 months, Accompanied by Medications Medication SIG (Take, Route, Frequency, Duration) Notes Start Date End Date Status Metoprolol Succinate ER 25 MG 1 tablet Orally Once a day for 90 days 05/03/2025 Active Escitalopram Oxalate 10 MG 1 tablet Orally Once a day Active Valsartan 80 MG 1 tablet Orally Once a day 02/26/2025 Active Tamsulosin HCl 0.4 MG TAKE 1 CAPSULE BY MOUTH EVERY DAY Active ProAir HFA 108 (90 Base) MCG/ACT 2 puffs as needed Inhalation every 4 hrs for 30 days 09/18/2013 Not-Taking Tadalafil 20 MG 1 tablet as needed Orally Once a day Active Albuterol Sulfate HFA 108 (90 Base) MCG/ACT INHALE 1 PUFF BY MOUTH EVERY 4 HOURS NEEDED for 33 Active Social History Tobacco Use: Social History [...] ast year? No Points 0 Interpretation Negative Vital Signs Blood pressure systolic 122 mm Hg 05/03/20 25 Blood pressure diastolic 70 mm Hg 025 Height 70.5 in 05/03/2025 Weight 228 lbs 05/03/2025 BMI 32.25 kg/m2 05/03/2025 Encounters Encounter Location Date Provider Diagnosis Temo Davis MD [address] [place] [address] [place] [phone] 05/03/2025 Temo Davis Essential hypertensi on I10 ; Pure hypercholesterolemia E78.00 ; History of basal cell cancer Z85.828 ; Skin lesion L98.9 ; Prediabetes R73.09 ; Dysthymia F34.1 ; Prostatism N40.0 ; Colon cancer screening Z12.11 and Depression screen Z13.31 Assessments Encounter Date Diagnosis (ICD Code) Assessment Notes Treatment Notes Treatment Clinical Notes Section Notes 05/03/2025 Essential hypertensi on (ICD-10 - I10) well controlled, patient verbalized understanding of change in medication 05/03/2025 Pure hypercholesterolemia (ICD-10 - E78.00) well controlled, will continue current regiment 05/03/2025 History of basal kiera l cancer (ICD-10 - Z85.828) followed by dr jean baptiste 05/03/2025 Skin lesion (ICD-10 - L98.9) going to show dr jean baptiste 05/03/2025 Prediabetes (ICD-10 - R73.09) stbale, no shantelle for medication at this time 05/03/2025 Dysthymia (ICD-10 - F34.1) stable, will cntinue current regiment 05/03/2025 Prostatism (ICD-10 - N40.0) stbale, will continue current regment 05/03/2025 Colon cancer screeni ng (ICD-10 - Z12.11) guaiac negative 05/03/2025 Depression screen (ICD-10 - Z13.31) negative screen Plan Of Treatment Medication Medication Name Sig Start Date Stop Date Notes Metoprolol Succinate ER 25 MG 1 tablet O rally Once a day for 90 days 05/03/2025 Escitalopram Oxalate 10 MG 1 tablet Orally Once a day Valsartan 80 MG 1 tablet Orally Once a day 02/26/2025 Tamsulosin HCl 0.4 MG TAKE 1 CAPSULE BY MOUTH EVERY DAY Metoprolol Succinate ER 50 MG TAKE 1 TAB LET BY MOUTH DAILY Orally Once a day Treatment Notes Assessment Notes Essential hypertension well controlled, patient verbalized understanding of change in medication Pure hypercholesterolemia well controlle d, will continue current regiment History of basal cell cancer followed by dr jean baptiste Skin lesion going to show dr gen proctor Prediabetes stdolorese, no shantelle for m edication at this time Dysthymia stable, will cntinue current regiment Prostatism stbale, will continu e current regment Colon cancer screening guaiac negative Depression screen negative screen Next Appt Details Provider Name:Temo Cheatham ier, 05/06/2026 07:15:00 AM, [address] [place] [address], [address], [phone], Provider Name:Temo Cheatham ier, 05/13/2026 10:30:00 AM, [address] [place] [address], [place] [address], [place], [place], [phone], Progress Notes * Salvatore BLUM JrDOB:1954 (70 yo M)Acc No.[id number]:05/03/2025 Patient: Joshua Salvatore KINSEY Provider: Hansel Davis MD :1955 A ge:70 Y S ex:Male Date:05/03/2025 Address:[address] [place] [address], [facility] Subjective: * Chief Complaints: * r eview labs/ must see PSAC/o bilateral ankle edema x 6 monthsAccompanied by * HPI: D epression Screening: PHQ-9 L ittle interest or pleasure in doing things N ot at all, F eeling down, depressed, or hopeless N ot at all, T rouble falling or staying asleep, or sleeping too much N ot at all, F eeling tired or having little energy N ot at all, P oor appetite or overeating N ot at all, F eeling bad about yourself or that you are a failure, or have let yourself or your family down N ot at all, T rouble concentrating on things, such as reading the newspaper or watching television N ot at all, M oving or speaking so slowly that other people could have noticed; or the opposite, being so fidgety or restless that you have been moving around a lot more than usual N ot at all, T houghts that you would be better off or of hurting yourself in some way N ot at all, T otal Score 0 . I nterpretation and Intervention P atient Lifestyle Goals P atient wants to maintain a healthy emotional balance,, B arriers N o specific barriers, is motivated to feel better, works at this everyday, S elf-Managment Goals E xercise at least 3xs per week. C ommunication Needs: Communication Needs D oes the patient have a hearing impairment N o, D oes the patient have a vision impairment? Y es, I f yes, what is the vision impairment? G lasses, D oes the patient have a cognition impairment? N o. F all Risk: History H ave you had any falls with injury in the past year? N o, H ave you had two or more falls in the past year? N o. S SHOBHA Questions: SDOH Questions I n the past year have you been worried about losing housing? N o, I n the past year have you or any family members you live with been unable to get any of the following when it was really needed? Check all that apply: N one. S ymptom(s): patient is a 70 yo male here for review of recent labs and follow up of chronic issues h as some swelling of his ankles. decreased metoprolol to 25 for one month. didn't remember any difference in fatigue. * ROS: G eneral/Constitutional: Change in appetite d enies. C hills d enies. F ever d enies. O phthalmologic: Blurred vision d enies. D ischarge d enies. P ain d enies. E NT: Decreased hearing d enies. S ore throat d enies.?Swollen glands d enies. E ndocrine: Cold intolerance d enies. E xcessive thirst d enies. H eat intolerance d enies. W eight loss d enies. R espiratory: Cough d enies. S hortness of breath at rest d enies. S hortness of breath with exertion d enies. W heezing d enies. C ardiovascular: Chest pain at rest d enies. C hest pain with exertion?denies. I rregular heartbeat d enies. S hortness of breath d enies. ? G astrointestinal: Abdominal pain d enies. C hange in bowel habits d enies. D iarrhea d enies. N ausea d enies. R ectal bleeding d enies. V omiting d enies . G enitourinary: Blood in urine d enies. D ifficulty urinating d enies. F requent urination d enies. M usculoskeletal: Painful joints d enies. W eakness d enies. ? S kin: Dry skin d enies. I tching d enies. D enies?Mole(s), changes in moles, new moles or any lesions of concern. D enies P hotosensitivity. R carlos d enies. N eurologic: Dizziness d enies. F ainting d enies. H eadache?denies. * Medical History: * Surgical History: * Hospitalization/Major Diagno stic Procedure: * Family History: F ather: 79 yrs. M other: 69 yrs, diagnosed with Alzheimer disease. 1 sister(s) . 3 son(s) . . Father-MVA mother- alzheimer's, Denies mental health/substance abuse family history, Denies mental health/substance abuse family history, No pertinent family medical history. * Social History: T obacco Use: T obacco Use/Smoking P atient is a f ormer smoker, H ow long has it been since you last smoked? > 10 years, A dditional Findings: Tobacco Non-User F ormer smoker, currently using no form of tobacco. D rugs/Alcohol: A lcohol Screen D id you have a drink containing alcohol in the past year? N o, P oints 0 , I nterpretation N egative. M iscellaneous: C affeine: yes, 2-3 cups per day. Children: yes. Community involvements: no. Housing: owning. Living with: spouse. Marital status: . Occupation: works full- time. Pets: none. * Medications: T akingTadalafil 20 MG Tablet 1 tablet as needed Orally Once a day Albuterol Sulfate HFA 108 (90 Base) MCG/ACT Aerosol Solution INHALE 1 PUFF BY MOUTH EVERY 4 HOURS NEEDED Tamsulosin HCl 0.4 MG Capsule TAKE 1 CAPSULE BY MOUTH EVERY DAY Escitalopram Oxalate 10 MG Tablet 1 tablet Orally Once a day Valsartan 80 MG Tablet 1 tablet Orally Once a day Metoprolol Succinate ER 50 MG Tablet Extended Release 24 Hour TAKE 1 TABLET BY MOUTH DAILY Orally Once a day Taking Tadalafil 20 MG Tablet 1 tablet as needed Orally Once a day Taking Albuterol Sulfate HFA 108 (90 Base) MCG/ACT Aerosol Solution INHALE 1 PUFF BY MOUTH EVERY 4 HOURS NEEDED Taking Tamsulosin HCl 0.4 MG Capsule TAKE 1 CAPSULE BY MOUTH EVERY DAY Taking Escitalopram Oxalate 10 MG Tablet 1 tablet Orally Once a day Taking Valsartan 80 MG Tablet 1 tablet Orally Once a day Taking Metoprolol Succinate ER 50 MG Tablet Extended Release 24 Hour TAKE 1 TABLET BY MOUTH DAILY Orally Once a day Not-Taking/PRNProAir HFA 108 [...] Vitals: H t: 70.5, Wt: 228, BMI:32.25, BP:122/70, Wt-k.42. * P ast Orders: L ab:Microalbumin, Random (Order Date - 04/27/2025) (Collection Date & Time - 04/27/2025 08:00 AM) Value Reference Range Creatinine Urine 136.23 - mg/dL Microalbumin Urine 7.0 - mg/L Microalbum Creatinine Ratio Ur 5.1 <30 - ug/ mg cr L ab:Hemoglobin A1c (Order Date - 04/27/2025) (Collection Date & Time - 04/27/2025 08:00 AM) Value Reference Range Hemoglobin A1c % 5.6 <6.0 - % Estimated Average Glucose 114 - mg/dL L ab:UA ClnCatch+Micro w/rflx Cult (Order Date - 04/27/2025) (Collection Date & Time - 04/27/2025 08:00 AM) Value Reference Range Color Urine Yellow - Appearance Urine Clear - PH 6.0 5.0-9.0 - Glucose Urine UA Negative Negative - mg/dL Urine Blood Negative Negative - Specific [place] - Urine 1.025 1.005-1.025 - Urine Protein Negative Neg-Trace - mg/dL Urine Ketones Negative Negative - mg/dL Nitrite Urine Negative Negative - Leukocyte Esterase Urine Negative Negative - RBC Urine 0-2 0-2 - /HPF WBC Urine 0-5 0-5 - /HPF Squamous Epithelial Cell Urine 0-2 0-2 - /HP F Bacteria Urine None Seen None Seen - Hyaline Casts Urine 0-2 0-2 - /LPF L ab:Comprehensive Met. Panel (Order Date - 04/27/2025) (Collection Date & Time - 04/27/2025 08:00 AM) Value Reference Range Sodium 144 135-145 - mmol/L Bilirubin Total 0.7 0.0-1.0 - mg/dL Aspartate Amino Transferase 25 5-37 - U/L Alanine Aminotransferase 32 0-40 - U/L Total Protein 6.3 L 6.5-8.0 - g/dL Albumin Level 4.3 3.5-5.0 - g/dL Alkaline Phosphatase 127 H 39-117 - U/L Potassium 4.4 3.3-5.1 - mmol/L Chloride 109 H 96-108 - mmol/L Carbon Dioxide 27 22-29 - mmol/L Anion Gap 12 12-20 - Blood Urea Nitrogen 16 9-16 - mg/dL Creatinine 0.76 0.5-1.4 - mg/dL Estimated Glomerular Filt Rate > 60 - Glucose Random 101 60-115 - mg/dL Calcium 8.9 8.4-10.2 - mg/dL L ab:Complete Blood Count Auto Diff (Order Date - 04/27/2025) (Collection Date & Time - 04/27/2025 08:00 AM) Value Reference Range White Blood Count 8.0 4.8-10.8 - X10*3/uL Red Blood Count 5.88 H 4.60-5.80 - X10*6/uL Hemoglobin 17.3 14.0-18.0 - g/dl Hematocrit 51.5 42.0-52.0 - % Mean Corpuscular Volume 87.6 80.0-98.0 - fL Mean Corpuscular Hemoglobin 29.4 27.0-33.0 - pg Mean Corpuscular HGB Conc 33.6 31.0-36.0 - g/ dl Red Cell Distribution Width 13.5 11.0-16.0 - % Platelet Count 215 160-400 - X10*3/uL Mean Platelet Volume 8.5 L 9.4-12.4 - fL Neutrophils Percent Auto 56.8 45-73 - % Imm Gran Pct Auto 0.5 H 0.0-0.4 - % Lymphocytes Percent Auto 33.0 20-40 - % Monocytes Percent Auto 7.7 2-11 - % Eosinophils Percent Auto 1.5 0-4 - % Basophils Percent Auto 0.5 0-2 - % NRBC Pct Auto 0.0 0.0-0.2 - /100WBC Neutrophils Absolute Auto 4.6 2.0-8.3 - x10* 3/uL Imm Gran Abs Auto 0.04 H 0.00-0.03 - X10*3/uL Lymphocytes Absolute Auto 2.7 1.2-4.9 - X10* 3/uL Monocytes Absolute Auto 0.6 0.1-1.2 - X10*3/ uL Eosinophils Absolute Auto 0.1 0.0-0.4 - X10* 3/uL Basophils Absolute Auto 0.0 0.0-0.2 - X10*3/ uL NRBC Abs Auto 0.000 0.0-0.012 - X10*3/uL L ab:Lipid Panel (Order Date - 04/27/2025) (Collection Date & Time - 04/27/2025 08:00 AM) Value Reference Range Triglycerides 160 H <150 - mg/dL Cholesterol 143 <200 - mg/dL LDL Cholesterol Calculated 74 <100 - mg/dL HDL Cholesterol 37 L >40 - mg/dL * Examination: G eneral Examination: GENERAL APPEARANCE: w ell developed, well nourished, in no acute distress. HEAD: n ormocephalic, atraumatic. EYES: p upils equal, round, reactive to light and accommodation, sclera non-icteric. EARS: n ormal. ORAL CAVITY: m [place] moist. THROAT: c lear. NECK/THYROID: n francisco javier supple, full range of motion, no cervical lymphadenopathy, no bruits. SKIN: w arm and dry, no suspicious lesions. HEART: r egular rate and rhythm, S1, S2 normal, no murmurs.? LUNGS: c lear to auscultation bilaterally. ABDOMEN: s oft, nontender, nondistended, bowel sounds present, normal, no organomegaly , no masses palpable. RECTAL EXAM: n ormal tone, no external hemorrhoids, no masses palpable, prostate normal, stool guaiac negative. MALE GENITOURINARY: c ircumcised, testes descended bilaterally has a wart like lesion on penis. EXTREMITIES: n o clubbing, cyanosis, or edema. NEUROLOGIC: n onfocal, motor strength normal upper and lower extremities, sensory exam intact. Assessment: * Assessment: 1. E ssential hypertension - I10 (Primary) 2 . P ure hypercholesterolemia - E78.00 3 . H istory of basal cell cancer - Z85.828 4 . S kin lesion - L98.9 5 . P rediabetes - R73.09 6 . D ysthymia - F34.1 7 . P rostatism - N40.0 8 . C olon cancer screening - Z12.11 9 . D epression screen - Z13.31 Plan: * Treatment: 2. P ure hypercholesterolemia Notes: well controlled, will continue current regiment 3. H istory of basal cell cancer Notes: followed by dr jean baptiste 4. S kin lesion Notes: going to show dr jean baptiste 5. P rediabetes Notes: stbale, no shantelle for medication at this time 6. D ysthymia Continue Escitalopram Oxalate Tablet, 10 MG, 1 tablet, Orally, Once a day. Notes: stable, will cntinue current regiment 7. P rostatism Continue Tamsulosin HCl Capsule, 0.4 MG, TAKE 1 CAPSULE BY MOUTH EVERY DAY. Notes: stbale, will continue current regment 8. C olon cancer screening L AB: Occult Blood, Stool, Guaiac (Collection Date & Time - 05/03/2025) N egative Value Reference Range O ccult Blood, Stool, Guaiac neg Notes: guaiac negative??9.?Depression screen? Notes: negative screen?? * Procedure Codes: 8 2270 TEST FOR BLOOD, FECES * Preventive Medicine: Counseling: C are goal follow-up plan: C ounseling for abnormal BMI provided?Yes, A anika Normal BMI Follow-up G iving encouragement to exercise. * * Sign off status: Completed true * Provider: Hansel Davis MD Date: 1 07/03/2024 Generated for Gus back/Marisela/Erica on: 07/30/2024 12:17 PM EST History and Physical Notes * HPI (History of Present Illness) Category Sub-Category Detail Notes Category Not es Symptom(s) patient is a 70 yo male here for review of recent labs and follow up of chronic issues has some swelling of his ankles. decreased metoprolol to 25 for one month. didn't remember any difference in fatigue Depression Screening PHQ-9 Little inte rest or [...] way: Not at all Total Score: 0 Interpretation and Intervention Patient Lifestyl e Goals: Patient wants to maintain a healthy emotional balance, Barriers: No specific barriers , is motivated to feel better, works at this everyday Self-Managment Goals: Exercise at least 3xs per week SDOH Questions SDOH Questions In the past [...] patient have a vision impairmen t?: Yes If yes, what is the vision impairment?: Glasses Does the patient have a cognition impair ment?: No Examination Category Sub-Category Detail Notes Category Not es General Examination GENERAL APPEARANCE: well dev eloped, well nourished, in no acute distress HEAD: normocephalic, atrau matic EYES: pupils equal, round, reactive to light and accommodation, sclera non-icteric EARS: normal THROAT: clear NECK/THYROID: neck supple, [...] clubbing, cyanosi s, or edema MALE GENITOURINARY: circumcised, testes descended bilaterally has a wart like lesion on penis RECTAL EXAM: normal tone, no exte rnal hemorrhoids, no masses palpable, prostate normal, stool guaiac negative ORAL CAVITY: mucosa moist
--- NOTE | ~2025-05-29 | XR_ITS ---
EXAMINATION: XR LUMBOSACRAL SPINE CLINICAL INFORMATION: fall COMPARISON: None available. TECHNIQUE: AP and lateral views. FINDINGS: Multilevel endplate sclerosis marginal osteophyte formation and decreased intervertebral disc height throughout the axial skeleton. Grade 1 retrolisthesis L2-3. Facet joint hypertrophy at L4-5 and L5-S1. No lytic or blastic lesions. No acute cortical disruption. Vascular calcifications, aorta.. XR/XR thoracic spine 3V IMPRESSION: Multilevel spondylosis resulting in grade 1 retrolisthesis L2-3. No gross acute fracture. EXAMINATION: XR THORACIC SPINE CLINICAL INFORMATION: fall COMPARISON: None available. TECHNIQUE: AP lateral and swimmer's projection FINDINGS: Multilevel marginal osteophyte formation and endplate sclerosis and decreased intervertebral disc height throughout the axial skeleton including the C5-6. No acute cortical disruption or malalignment. Mild S-shaped curvature. No lytic or blastic lesions. IMPRESSION: Multilevel spondylosis without acute fracture or trauma-related listhesis. Electronically signed by: Joe Araiza MD 05/29/2025 09:52 AM EST
--- NOTE | ~2025-05-29 | XR_ITS ---
EXAMINATION: XR LUMBOSACRAL SPINE CLINICAL INFORMATION: fall COMPARISON: None available. TECHNIQUE: AP and lateral views. FINDINGS: Multilevel endplate sclerosis marginal osteophyte formation and decreased intervertebral disc height throughout the axial skeleton. Grade 1 retrolisthesis L2-3. Facet joint hypertrophy at L4-5 and L5-S1. No lytic or blastic lesions. No acute cortical disruption. Vascular calcifications, aorta.. XR/XR lumbar spine 2-3V IMPRESSION: Multilevel spondylosis resulting in grade 1 retrolisthesis L2-3. No gross acute fracture. EXAMINATION: XR THORACIC SPINE CLINICAL INFORMATION: fall COMPARISON: None available. TECHNIQUE: AP lateral and swimmer's projection FINDINGS: Multilevel marginal osteophyte formation and endplate sclerosis and decreased intervertebral disc height throughout the axial skeleton including the C5-6. No acute cortical disruption or malalignment. Mild S-shaped curvature. No lytic or blastic lesions. IMPRESSION: Multilevel spondylosis without acute fracture or trauma-related listhesis. Electronically signed by: Joe Araiza MD 05/29/2025 09:52 AM EST
--- NOTE | ~2025-05-29 | CT_ITS ---
EXAMINATION: CT HEAD WITHOUT CONTRAST CLINICAL INFORMATION: fall injury COMPARISON: None available. TECHNIQUE: Contiguous axial imaging was performed from the skull base to vertex without intravenous administration of contrast. This CT examination was performed using dose optimization techniques as appropriate, variously including the following: *Automated exposure control *Adjustment of mA and/or kV according to patient size (this includes techniques or standardized protocols for targeted exams where dose is matched to indication/reason for exam; i.e. extremities or head) *Use of iterative reconstruction technique DLP: 714.53 mGy-cm FINDINGS: No acute cortical disruption in the bony calvarium. No acute intracranial hemorrhage, mass effect, midline shift, hydrocephalus or herniation. [place]-white matter differentiation is normal. Posterior cranial fossa contents demonstrated no acute hemorrhage or mass effect. Prominence of the extra-axial CSF spaces and cerebral sulci involving mostly the bifrontal parietal lobes and to a lesser extent cerebellar folia. Normal position of the cerebellar tonsils. Zia cisterna magna. Mucosal thickening, ethmoid air cells and sphenoid sinus. Tympanic cavities and mastoid cells are aerated. CT/CT cervical spine wo IV con IMPRESSION: No acute fracture, bony calvarium. No acute intracranial hemorrhage. Bifrontal biparietal lobes atrophy. EXAMINATION: CT CERVICAL SPINE WITHOUT CONTRAST CLINICAL INFORMATION: Status post fall. Injury. COMPARISON: None available. TECHNIQUE: Contrast axial images through the cervical spine using 3 mm collimation with bone and soft tissue algorithm. Sagittal and coronal reformatted images acquired. This CT examination was performed using dose optimization techniques as appropriate, variously including the following: *Automated exposure control *Adjustment of mA and/or kV according to patient size (this includes techniques or standardized protocols for targeted exams where dose is matched to indication/reason for exam; i.e. extremities or head) *Use of iterative reconstruction technique DLP: 559.89 mGy-cm FINDINGS: Patient's motion artifact. Craniocervical junction is intact with normal alignment between the occipital condyles and lateral masses of C1. Degenerative changes in the periodontal C1 region. Marginal osteophyte formation and endplate irregularity, decreased intervertebral disc height at C5-6 and to a lesser extent C4-5. Bilateral facet joint hypertrophy pronounced at C4-5 and C5-6 levels. C1 is intact. C2 is intact. C3 is intact. C4 is intact. C5 is intact. C6 is intact. C7 is intact. No prevertebral compartment hematoma. There is a 17 mm lobulated hypodensity in the right midline thyrohyoid ligament. IMPRESSION: Multilevel cervical spondylosis pronounced at C5-6 and to a lesser extent C4-5 and C6-7 without acute fracture or trauma-related listhesis. 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 Fleischner guidelines were followed. Electronically signed by: Joe Araiza MD 05/29/2025 10:02 AM IRINEO
--- NOTE | 2025-05-29 09:17 | ED.HEATRA ---
HPI - Head Injury General Chief complaint: Head Injury Stated complaint: fall - head injury Time Seen by Provider: 05/29/25 10:08 Source: patient and old records reviewed Mode of arrival: ambulatory Limitations: no limitations History of Present Illness ED Provider: LEESA BAR Narrative: 70 Year old male with past medical history of coronary artery disease and cardiac arrest (arrest due to allergy of halothane during surgery), elevated cholesterol, sleep apnea, he is not on any blood thinners but takes a baby aspirin he notes on Wednesday he was walking at the [employer] when he slipped and fell backwards hitting his head he did not have loss of consciousness but he has had persistent dizziness, headaches, nausea. He has had head injuries in the past. He also has thoracic and lumbar tenderness to palpation. His sensory with him otherwise avoid helped him get up. MD Complaint: head injury Onset (ago): day(s) (Wednesday) Arrival Conditions: other Mechanism of Injury: fall Place: outdoors Loss of Consciousness: no Location of injury: occipital Severity: moderate Quality: dull Radiation: none Other Injuries: back Context: on aspirin Associated symptoms: denies other symptoms Related Data Home Medications ?Medication ?Instructions ?Recorded ?Confirmed albuterol sulfate 90 mcg/actuation 2 puff inhalation Q4H PRN 05/27/22 12/04/24 aerosol inhaler tamsulosin 0.4 mg capsule 0.4 mg PO DAILY 05/27/22 12/04/24 escitalopram oxalate 10 mg tablet 10 mg PO DAILY 03/18/23 12/04/24 metoprolol succinate 25 mg 25 mg PO DAILY 08/10/24 12/04/24 tablet,extended release 24 hr Previous Rx's ?Medication ?Instructions ?Recorded atorvastatin 20 mg tablet 20 mg PO BEDTIME #90 tabs 04/16/25 Allergies Allergy/AdvReac Type Severity Reaction Status Date / Time Halothane Allergy Unknown cardiac Uncoded 05/29/25 09:20 arrest Review of Systems Review of Systems: Yes all other systems are reviewed and are negative PMFSH Past Medical History Attestation statement: The following information was validated with the patient. Source: old records reviewed Medical History Cardiac arrest Depression Elevated cholesterol Surgical History H/O colonoscopy Family History Family History Father Prostate CA Mother Dementia Social History Social History Alcohol intake: never Patient Tobacco Use Status: Former Tobacco user Advance Directives: Yes Advance Directives Information Provided: Yes Advance Directives on File: No Physical Exam Vital Signs: Vital Signs: Last Vital Signs Temp 98 F 05/29/25 09:18 Pulse 56 05/29/25 09:18 Resp 18 05/29/25 09:18 BP 152/92 H 05/29/25 09:18 Pulse Ox 95 05/29/25 09:18 O2 Del Method Room Air 05/29/25 09:18 BMI result Body Mass Index 30.2 Appearance: Alert. Oriented X3. No acute distress. Eyes: Pupils equal, round and reactive to light. ENT: Pharynx normal. No hagan or raccoon sign on the dome of the head he has a slight abrasion Neck: Normal inspection. Neck supple. CVS: Normal heart rate and rhythm. Pulses normal. Respiratory: No respiratory distress. Breath sounds normal. Abdomen: Soft and nontender. Back: ttp along thoracic area Skin: Skin warm and dry. Normal skin color. Normal skin turgor. Extremities: No lower extremity edema. No calf ttp Neuro: Oriented X 3. No motor deficit. No sensory deficit. CN2-12 intact Medical Decision Making Medical Decision Making MDM Narrative: 70 Year old male with past medical history of coronary artery disease and cardiac arrest (arrest due to allergy of halothane during surgery), elevated cholesterol, sleep apnea, he is not on any blood thinners we had a recent fall on arrival he is neurologically intact and GCS 15. Given his complaints and H he will need a CT head CT C-spine as well as thoracic and lumbar x-rays. He is otherwise nontoxic well-appearing and has a steady gait. Differential Diagnosis Differential Diagnoses: The differential diagnosis associated with the presentation includes Fracture, strain, head injury, contusion Admission/Observation Consideration of admission/observation: Escalation of care including admission/observation considered He is GCS 15 has normal neurovascular exam he can be discharged Independent Interpretation I performed an independent interpretation of an: Plain X-Ray (No trauma) and CT Scan (No trauma) Radiology Impression Discussion of test interpretation with radiology: I have reviewed the radiologist's reading. External Record Review External record reviewed: Outpatient record Prescription Management I considered prescription management with: Pain Medication Discharge Plan Discharge Clinical Impression: Concussion without loss of consciousness Qualifiers: Encounter type: initial encounter Qualified Code(s): S06.0X0A - Concussion without loss of consciousness, initial encounter Closed head injury Qualifiers: Encounter type: initial encounter Qualified Code(s): S09.90XA - Unspecified injury of head, initial encounter Back pain Qualifiers: Back pain location: thoracic back pain Chronicity: acute Back pain laterality: bilateral Qualified Code(s): M54.6 - Pain in thoracic spine Patient Disposition: Home, Self-Care Instructions: Back Pain (ED), Head Injury (DC), Concussion (ED) Additional Instructions: There is no traumatic injury to the head, cervical spine, thoracic, lumbar spine He do have degenerative changes throughout your spine As discussed the need to do brain rest for the next 5 days which includes no strenuous activity, screen use, reading, or any other symptoms that are causing pain Prescriptions: No Action atorvastatin 20 mg tablet 20 mg PO BEDTIME Qty: 90 3RF tamsulosin 0.4 mg capsule 0.4 mg PO DAILY albuterol sulfate 90 mcg/actuation HFA aerosol inhaler 2 puff inhalation Q4H PRN escitalopram oxalate 10 mg tablet 10 mg PO DAILY metoprolol succinate 25 mg tablet extended release 24 hr 25 mg PO DAILY Print Language: Kuwaiti
[2025-05-29 09:18] VITALS: BP 152/92; PULSE 56; RESP 18; TEMP 36.6; O2SAT 95; BMI 30.2
--- NOTE | 2025-05-29 09:54 | PC.NURSE ---
Patient arrived to ED with complaint of fall on ice yesterday with + head strike and -LOC. Patient stated he was slurry his words for around a minute after the fall, then speech returned to normal after that. Complaints of constant frontal headache 4/10 since the fall. He states he takes aspirin every day and did take it yesterday. DERIAN.
[2025-05-29 10:50] VITALS: BP 174/86; PULSE 61; RESP 16; TEMP 36.6; O2SAT 95
--- OUTSIDE RECORDS SUMMARY | 2025-05-29 12:16 | XMS_ITS | Patient Health Record ---
Author Organization [facility] Address [address] [place] [id number] Care Team Providers Care Laborer [place]chard Name Role Phone Temo Davis MD Primary Care Provider Azam Montgomery [phone] Allergies Allergen (clinical drug ingredient) Drug/Non Drug Allergy documented on EMR Reaction Allergy Type Onset Date Status Halothane Unknown Drug Allergy Active Reason For Referral No Information Medications Medication SIG (Take, Route, Frequency, Duration) Notes Start Date End Date Status PARoxetine HCl 40 MG Tablet 1 tablet in the morning Orally Once a day Active Fenofibrate 145 MG Tablet 1 tablet Orall y Once a day; Duration: 30 day(s) Active Immunizations Vaccine Route Administration Date Status Comme nts Influenza Unknown 04/30/2021 Administered Social History Social History Additional Details Category Social Info Options Details Miscellaneous: Marital status: 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 Section Notes: Nonsmoker; no alcohol Nonsmoker; no alcohol Nonsmoker; no alcohol Problems Problem Type SNOMED Code ICD Code Onset Dates Problem Status W/U Status Risk Notes Problem Screening for malignant neoplasm of colon (659006261) Encounter for screening for malignant neoplasm of colon (Z12.11) Active confirmed Problem History of adenomatous polyp of colon (672204613) History of adenomatous polyp of colon (Z86.010) Active confirmed Problem Blood in stool (338280600) Blood in stool (K92.1) Active confirmed Problem Preprocedural examination (593732220266310) Preprocedural examination (Z01.818) Active confirmed Problem Abnormal feces (264143279) Heme + stool (R19.5) Active confirmed Problem Diverticulosis of colon (285696710) Diverticulosis of colon (K57.30) Active confirmed Plan Of Treatment Pending Test Test Name Order Date Pathology 07/16/2021 Future Test Test Name Order Date COLONOSCOPY 2016 COLONOSCOPY 05/15/2020 COLONOSCOPY 06/18/2021 Insurance Providers Payer Name Payer Address Payer Phone Subscriber Number Group Number Insured Name Patient Relationship to Insured Coverage Start Date Coverage End Date [facility] [address] [place], [place] [id number] [phone] [id number] FRANK FONSECA Self - patient is the insured Medical (General) History Medical History History ICD Code Colonoscopy 03-27-2011--hype rplastic polyp, mild diverticulosis, small internal hemorrhoids; and in 2005 1 small tubular adenoma removed. Hyperlipidemia Denies DE,DM,CVA,Lung disease,renal dise ase Depression Abnormal EKG--seeing cardiology, Dr. Augusto carnes, on 02/20/16 Negative colonoscopy in 03/2016 Surgical History Surgery Date(Month/Year) Mouth and jaw surgery 1979
--- OUTSIDE RECORDS SUMMARY | 2025-05-29 12:17 | XMS_ITS | Clinical Summary ---
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 Name Role Phone Physician, No Pcp Primary Care Provider Unavaila ble Social History Tobacco Use Types Packs/Day Years Used Date Smoking Tobacco: Never Assessed Sex and Gender Information Value Date Recorded Sex Assigned at Not on file Legal Sex Male 2:22 PM EDT Gender Identity Not on file Sexual Orientation Not on file Plan of Treatment Health Maintenance Due Date Last Done Comments Colorectal Cancer Screening: Colonoscopy 1955 DTaP,Tdap,and Td Vaccines (1 - Tdap) 1974 Pneumococcal Vaccine: 50+ Ye ars (1 of 1 - PCV) 2005 Zoster Vaccines (1 of 2) 2005 Depression Screening 06/14/2024 Abdominal Aortic Aneurysm (A AA) Screen 09/14/2024 Cholesterol Screening (Lipid Panel) 09/14/2024 Falls Risk Assessment 09/14/2024 Hepatitis C Screening 09/14/2024 Medicare Annual Wellness Visit 09/14/2024 Social Influencers of Health Screening 09/14/2024 COVID-19 Vaccine (1 - 2024-2 6 season) 2025 Influenza Vaccine (#1) 2025 RSV Immunization Adult Patie nts (1 - 1-dose 75+ series) 2030 HIB Vaccines Aged Out No longer eligi ble based on patient's age to complete this topic HPV Vaccines Aged Out No longer eligi ble based on patient's age to complete this topic Hepatitis A Vaccines Aged Out No long er eligible based on patient's age to complete this topic Hepatitis B Vaccines Aged Out No long er eligible based on patient's age to complete this topic IPV Vaccines Aged Out No longer eligi ble based on patient's age to complete this topic MMR Vaccines Aged Out No longer eligi ble based on patient's age to complete this topic Meningococcal ACWY Vaccine Aged Out N o longer eligible based on patient's age to complete this topic Meningococcal B Vaccine Aged Out No l onger eligible based on patient's age to complete this topic RSV Immunization Patients Un elyssa 20 months Aged Out No longer eligible b ased on patient's age to complete this topic Varicella Vaccines Aged Out No longer eligible based on patient's age to complete this topic Insurance MEDICARE [facility] Care Teams Gunstock Spray Unit Feeder Relationship Specialty Start Date End Date Physician, No Pcp PCP - General 09/13/24
--- OUTSIDE RECORDS SUMMARY | 2025-05-29 12:17 | XMS_ITS | Patient Health Record ---
Author Organization Temo Davis MD Address [address] [place], [place] [id number] Care Team Providers Care Urban Planning Professor Name Role Phone Temo Davis Primary Care Provider Allergies Allergen (clinical drug ingredient) Drug/Non Drug Allergy documented on EMR Reaction Allergy Type Onset Date Status hallothane (uncoded) cardiac arrest Allergy Active Results Component Value Reference Range Notes Hemoglobin A1c Reviewed date:08/18/2024 09:54:18 AM Interpretation: Performing Lab: Notes/Report: Hemoglobin A1c 5.2 Complete Blood Count Auto Di ff Reviewed date:04/27/2025 12:39:17 PM Interpretation: Performing Lab:[facility], [address] [place] [phone] Notes/Report: White Blood Count 8.0 4.8-10.8 X10*3/uL [...] 0.0-0.2 /100WBC Neutrophils Absolute Auto 4.6 2.0-8.3 x10*3/uL Imm Gran Abs Auto 0.04 0.00-0.03 X10*3/uL Lymphocytes Absolute Auto 2.7 1.2-4.9 X10*3/uL Monocytes Absolute Auto 0.6 0.1-1.2 X10*3/uL Eosinophils Absolute Auto 0.1 0.0-0.4 X10*3/uL Basophils Absolute Auto 0.0 0.0-0.2 X10*3/uL NRBC Abs Auto 0.000 0.0-0.012 X10*3/uL Lipid Panel Reviewed date:04/27/2025 12:18:43 PM Interpretation: Performing Lab:[address] [phone] Notes/Report: Triglycerides 160 <150 mg/dL Desirable Triglyceride: [...] (Free>4and<10) Reviewed date:05/04/2025 11:07:25 AM Interpretation:05-03-2025 Performing Lab:[facility], [address] [place] [phone] Notes/Report: PSA,Total (Free>4and<10) 5.01 0.00-4.00 ng/mL PSA methodology: Person Alinity i Chemiluminescent Microparticle Immunoassay (CMIA) Microalbumin, Random Reviewed date:04/27/2025 12:37:53 PM Interpretation: Performing Lab:[facility], [address] [place] [phone] Notes/Report: Creatinine Urine 136.23 Microalbumin Urine 7.0 Microalbum/Creatinine Ratio Ur 5.1 <30 ug/mg cr Albumin/Creatinine Ratio Reference Ranges: Normal: < 30 ug/mg creatinine Microalbuminuria: 30 - 300 ug/mg creatinine Clinical Albuminuria: > 300 ug/mg creatinine Hemoglobin A1c Reviewed date:04/27/2025 12:19:11 PM Interpretation: Performing Lab:[facility], [address] [place] [phone] Notes/Report: Hemoglobin A1c % 5.6 <6.0 % [...] average glucose, using the formula of the [id number] Average Glucose study (ADAG), Diabetes Care, Vol.31,#8, Jan. 2007 UA ClnCatch+Micro w/rflx Cul t Reviewed date:04/27/2025 12:50:03 PM Interpretation: Performing Lab:[facility], [address] [place] [phone] Notes/Report: Urine, Clean Catch Color Urine Yellow Appearance Urine Clear PH 6.0 5.0-9.0 Glucose Urine UA Negative Negative mg/dL Urine Blood Negative Negative Specific [place] - Urine 1.025 1.005-1.025 Urine Protein Negative Neg-Trace mg/dL Urine Ketones Negative Negative mg/dL Nitrite Urine Negative Negative Leukocyte Esterase Urine Negative Negative RBC Urine 0-2 0-2 /HPF WBC Urine 0-5 0-5 /HPF Squamous Epithelial Cell Urine 0-2 0-2 /HPF Bacteria Urine None Seen None Seen Hyaline Casts Urine 0-2 0-2 /LPF Glucose, finger stick Reviewed date:08/18/2024 09:49:28 AM Interpretation: Performing Lab: Notes/Report: Value 91 Occult Blood, Stool, Guaiac Reviewed date:05/03/2025 12:36:30 PM Interpretation:Negative Performing Lab: Notes/Report: Negative Occult Blood, Stool, Guaiac neg Lipid Panel Reviewed date:12/05/2024 12:25:43 PM Interpretation: Performing Lab:[address] [phone] Notes/Report: Triglycerides 189 <150 mg/dL Desirable Triglyceride: less than 150 mg/dL Borderline High Triglyceride 150-199 mg/dL High Triglyceride: 200-499 mg/dL Very High Triglyceride: greater than or equal to 5OO mg/dL Cholesterol 165 <200 mg/dL Desirable Cholesterol: less than 200 mg/dL Borderline High Cholesterol: 200-239 mg/dL High Cholesterol: greater than 239 mg/dL LDL Cholesterol Calculated 92 <100 mg/dL Desirable LDL: less than 100 mg/dL Near Optimal/Above Optimal LDL: 110-129 mg/dL Borderline High LDL: 130-159 mg/dL High LDL: 160-189 mg/dL Very High LDL: greater than or equal to 190 mg/dL HDL Cholesterol 36 >40 mg/dL Desirable HDL: greater than 40 mg/dL Note: This HDL assay may give artificially low results in patients with liver disease. Comprehensive Met. Panel Reviewed date:04/27/2025 12:26:11 PM Interpretation: Performing Lab:[address] [phone] Notes/Report: Sodium 144 135-145 mmol/L Potassium 4.4 3.3-5.1 mmol/L Chloride 109 96-108 mmol/L Carbon Dioxide 27 22-29 mmol/L Anion Gap 12 12-20 Blood Urea Nitrogen 16 9-16 mg/dL Creatinine 0.76 0.5-1.4 mg/dL Estimated Glomerular Filt Rate > 60 Chronic Kidney Disease: Estimated GFR < 60 mL/min/1.73m2 Severe Kidney Disease: Estimated GFR < 15 mL/min/1.73m2 Glucose Random 101 60-115 mg/dL Calcium 8.9 8.4-10.2 mg/dL Bilirubin Total 0.7 0.0-1.0 mg/dL Aspartate Amino Transferase 25 5-37 U/L Alanine Aminotransferase 32 0-40 U/L Total Protein 6.3 6.5-8.0 g/dL Albumin Level 4.3 3.5-5.0 g/dL Alkaline Phosphatase 127 39-117 U/L PSA Free and Total Reviewed date:05/04/2025 11:07:11 AM Interpretation:05-03-2025 Performing Lab:[facility], [address] [place] [phone] Notes/Report: Prostate Specific Ag Total 4.9 < OR = 4.0 ng/mL Percent Free Prostate Spec Ag 18 >25 % (calc) PSA(ng/mL) Free PSA(%) Estimated(x) Probability of Cancer(as%) 0-2.5 (*) Approx. 1 2.6-4.0(1) 0-27(2) 24(3) 4.1-10(4) 0-10 56 11-15 28 16-20 20 21-25 16 >or =26 8 >10(+) N/A >50 References:(1)Jamison gabriel et al.:Urology 60: 469-474 (2001) (2)Mika et al.:J.Urol 168: 922-925 (2001) Free PSA(%) Sensitivity(%) Specificity(%) < or = 25 85 19 < or = 30 93 9 (3)Catalona et al.:GREER 277: 2555-8317 (1996) (4)Catalona et al.:GREER 279: 1994-3993 (1997) (x)These estimates vary with age, ethnicity, family history and TU results. (*)The diagnostic usefulness of % Free PSA has not been established in patients with total PSA below 2.6 ng/mL (+)In men with PSA above 10 ng/mL, prostate cancer risk is determined by total PSA alone. The Total PSA value from this assay system is standardized against the equimolar PSA standard. The test result will be approximately 20% higher when compared to the WHO-standardized Total PSA (Siemens assay). Comparison of serial PSA results should be interpreted with this fact in mind. PSA was performed using the Deedee Wilbur Immunoassay method. Values obtained from different assay methods cannot be used interchangeably. PSA levels, regardless of value, should not be interpreted as absolute evidence of the presence or absence of disease. THIS TEST WAS PERFORMED AT: [facility] [address] [place] [phone] EUGENIO REYNOLDS MD Free Prostate Spec Ag 0.9 CT cervical spine wo con Reviewed date:05/29/2025 10:53:27 AM Interpretation: Performing Lab: Notes/Report: [address] [address] [address] Scan Report Signed Patient: Salvatore Blum Jr MR#: [id number] : 1955 Acct:[id number] Age/Sex: 70 / M ADM Date: 05/29/25 Loc: HO.ED Attending Dr: Ordering Physician: Kim Horn DO Date of Service: 05/29/25 Procedure(s): CT cervical spine wo IV con Accession Number(s): [id number] cc: Temo Davis MD; Kim Horn DO Report Number: [id number]: Total DLP = 570.00 mGy-cm Reason for Exam: fall injury EXAMINATION: CT HEAD WITHOUT CONTRAST CLINICAL INFORMATION: fall injury COMPARISON: None available. TECHNIQUE: Contiguous axial imaging was performed from the skull base to vertex without intravenous administration of contrast. This CT examination was performed using dose optimization techniques as appropriate, variously including the following: *Automated exposure control *Adjustment of mA and/or kV according to patient size (this includes techniques or standardized protocols for targeted exams where dose is matched to indication/reason for exam; i.e. extremities or head) *Use of iterative reconstruction technique DLP: 714.53 mGy-cm FINDINGS: No acute cortical disruption in the bony calvarium. No acute intracranial hemorrhage, mass effect, midline shift, hydrocephalus or herniation. [place]-white matter differentiation is normal. Posterior cranial fossa contents demonstrated no acute hemorrhage or mass effect. Prominence of the extra-axial CSF spaces and cerebral sulci involving mostly the bifrontal parietal lobes and to a lesser extent cerebellar folia. Normal position of the cerebellar tonsils. Zia cisterna magna. Mucosal thickening, ethmoid air cells and sphenoid sinus. Tympanic cavities and mastoid cells are aerated. CT/CT cervical spine wo IV con IMPRESSION: No acute fracture, bony calvarium. No acute intracranial hemorrhage. Bifrontal biparietal lobes atrophy. EXAMINATION: CT CERVICAL SPINE WITHOUT CONTRAST CLINICAL INFORMATION: Status post fall. Injury. COMPARISON: None available. TECHNIQUE: Contrast axial images through the cervical spine using 3 mm collimation with bone and soft tissue algorithm. Sagittal and coronal reformatted images acquired. This CT examination was performed using dose optimization techniques as appropriate, variously including the following: *Automated exposure control *Adjustment of mA and/or kV according to patient size (this includes techniques or standardized protocols for targeted exams where dose is matched to indication/reason for exam; i.e. extremities or head) *Use of iterative reconstruction technique DLP: 559.89 mGy-cm FINDINGS: Patient's motion artifact. Craniocervical junction is intact with normal alignment between the occipital condyles and lateral masses of C1. Degenerative changes in the periodontal C1 region. Marginal osteophyte formation and endplate irregularity, decreased intervertebral disc height at C5-6 and to a lesser extent C4-5. Bilateral facet joint hypertrophy pronounced at C4-5 and C5-6 levels. C1 is intact. C2 is intact. C3 is intact. C4 is intact. C5 is intact. C6 is intact. C7 is intact. No prevertebral compartment hematoma. There is a 17 mm lobulated hypodensity in the right midline thyrohyoid ligament. IMPRESSION: Multilevel cervical spondylosis pronounced at C5-6 and to a lesser extent C4-5 and C6-7 without acute fracture or trauma-related listhesis. 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 Fleischner guidelines were followed. Electronically signed by: Joe Araiza MD 05/29/2025 10:02 AM [facility] Dictated By: Joe Fortune MD Signed By: <Electronically signed by Joe Campuzano MD in OV> 05/29/25 1002 DD/ 0938 TD/TT: 05/29/25 0943 Food Prep Worker: [address] [address] [address] Scan Report Signed Patient: Shady Blum Jr MR#: [id number] : 1955 Acct:[id number] Age/Sex: 70 / M ADM Date: 05/29/25 Loc: HO.ED Attending Dr: Ordering Physician: Kim Horn DO Date of Service: 05/29/25 Procedure(s): CT cervical spine wo IV con Accession Number(s): [id number] cc: Temo Davis MD; Kim Horn DO Report Number: [id number]: Total DLP = 570.00 mGy-cm Reason for Exam: fal l injury EXAMINATION: CT HEAD WITHOUT CONTRAST CLINICAL INFORMATION: fall injury COMPARISON: None available. TECHNIQUE: Contiguous axial imaging was performed from the skull base to vertex without intravenous administration of contrast. This CT examination was performed using dose optimization techniques as appropriate, various ly including the following: *Automated exposure control *Adjustment of mA and/or kV according to patient size (this includes techniques or standardized protocols for targeted exams where dose is matched to indication/reason for exam; i.e. extremities or head) *Use of iterative reconstruction technique DLP: 714.53 mGy-cm FINDINGS: No acute cortical disruption in the bony calvarium. No acute intracrania l hemorrhage, mass effect, midline shift, hydrocephalus or herniation. Trujillo-white matter differentiation is normal. Posterior cranial fo ssa contents demonstrated no acute hemorrhage or mass effect. Prominence of the extra-axial CSF spaces and cerebral sulci involving mostly the bifrontal parietal lobes and to a lesser extent cerebellar folia. Normal position of t he cerebellar tonsils. Zia cisterna magna. Mucosal thickening, ethmoid air cells and sphenoid sinus. Tympanic cavities and mastoid cells are aerated. CT/CT cervical spine wo IV con IMPRESSION: No acute fracture, b gena calvarium. No acute intracrania l hemorrhage. Bifrontal biparietal lobes atrophy. EXAMINATION: CT CERVICAL SPINE WITHOUT CONTRAST CLINICAL INFORMATION: Status post fall. Injury. COMPARISON: None available. TECHNIQUE: Contrast axial image s through the cervical spine using 3 mm collimation with bone and soft tissue algorithm. Sagittal and coronal reformatted images acquired. This CT examination was performed using dose optimization techniques as appropriate, various ly including the following: *Automated exposure control *Adjustment of mA and/or kV according to patient size (this includes techniques or standardized protocols for targeted exams where dose is matched to indication/reason for exam; i.e. extremities or head) *Use of iterative reconstruction technique DLP: 559.89 mGy-cm FINDINGS: Patient's motion artifact. Craniocervical junct ion is intact with normal alignment between the occipital condyles a nd lateral masses of C1. Degenerative changes in the periodontal C1 region. Marginal osteophyte formation and endplate irregularity, decreased intervertebral disc height at C5-6 and to a lesser extent C4-5. Bilateral facet join t hypertrophy pronounced at C4-5 and C5-6 levels. C1 is intact. C2 is intact. C3 is intact. C4 is intact. C5 is intact. C6 is intact. C7 is intact. No prevertebral compartment hematoma. There is a 17 mm lobulated hypodensity in the right midline thyrohyoid ligament. IMPRESSION: Multilevel cervical spondylosis pronounced at C5-6 and to a lesser extent C4-5 and C6-7 without acute fracture or trauma-related listhesis. 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 Fleischner guideline s were followed. Electronically cruzito d by: Joe Araiza MD 05/29/2025 10:02 AM [facility] Dictated By: Joe Stone MD Signed By: <Electronically signed by Joe Campuzano MD in OV> 05/29/25 1002 DD/ 0938 TD/TT: 05/29/25 0943 Food Prep Worker: CT head/brain wo con Reviewed date:05/29/2025 10:52:49 AM Interpretation: Performing Lab: Notes/Report: [address] [address] [address] Scan Report Signed Patient: Salvatore Blum Jr MR#: [id number] : 1955 Acct:[id number] Age/Sex: 70 / M ADM Date: 05/29/25 Loc: HO.ED Attending Dr: Ordering Physician: Kim Horn DO Date of Service: 05/29/25 Procedure(s): CT head/brain wo IV con Accession Number(s): [id number] cc: Temo Davis MD; Kim Horn DO Report Number: [id number]: Total DLP = 715.00 mGy-cm Reason for Exam: head injury EXAMINATION: CT HEAD WITHOUT CONTRAST CLINICAL INFORMATION: fall injury COMPARISON: None available. TECHNIQUE: Contiguous axial imaging was performed from the skull base to vertex without intravenous administration of contrast. This CT examination was performed using dose optimization techniques as appropriate, variously including the following: *Automated exposure control *Adjustment of mA and/or kV according to patient size (this includes techniques or standardized protocols for targeted exams where dose is matched to indication/reason for exam; i.e. extremities or head) *Use of iterative reconstruction technique DLP: 714.53 mGy-cm FINDINGS: No acute cortical disruption in the bony calvarium. No acute intracranial hemorrhage, mass effect, midline shift, hydrocephalus or herniation. Trujillo-white matter differentiation is normal. Posterior cranial fossa contents demonstrated no acute hemorrhage or mass effect. Prominence of the extra-axial CSF spaces and cerebral sulci involving mostly the bifrontal parietal lobes and to a lesser extent cerebellar folia. Normal position of the cerebellar tonsils. Zia cisterna magna. Mucosal thickening, ethmoid air cells and sphenoid sinus. Tympanic cavities and mastoid cells are aerated. CT/CT head/brain wo IV con IMPRESSION: No acute fracture, bony calvarium. No acute intracranial hemorrhage. Bifrontal biparietal lobes atrophy. EXAMINATION: CT CERVICAL SPINE WITHOUT CONTRAST CLINICAL INFORMATION: Status post fall. Injury. COMPARISON: None available. TECHNIQUE: Contrast axial images through the cervical spine using 3 mm collimation with bone and soft tissue algorithm. Sagittal and coronal reformatted images acquired. This CT examination was performed using dose optimization techniques as appropriate, variously including the following: *Automated exposure control *Adjustment of mA and/or kV according to patient size (this includes techniques or standardized protocols for targeted exams where dose is matched to indication/reason for exam; i.e. extremities or head) *Use of iterative reconstruction technique DLP: 559.89 mGy-cm FINDINGS: Patient's motion artifact. Craniocervical junction is intact with normal alignment between the occipital condyles and lateral masses of C1. Degenerative changes in the periodontal C1 region. Marginal osteophyte formation and endplate irregularity, decreased intervertebral disc height at C5-6 and to a lesser extent C4-5. Bilateral facet joint hypertrophy pronounced at C4-5 and C5-6 levels. C1 is intact. C2 is intact. C3 is intact. C4 is intact. C5 is intact. C6 is intact. C7 is intact. No prevertebral compartment hematoma. There is a 17 mm lobulated hypodensity in the right midline thyrohyoid ligament. IMPRESSION: Multilevel cervical spondylosis pronounced at C5-6 and to a lesser extent C4-5 and C6-7 without acute fracture or trauma-related listhesis. 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 Fleischner guidelines were followed. Electronically signed by: Joe Araiza MD 05/29/2025 10:02 AM EST Dictated By: Joe Fortune MD Signed By: <Electronically signed by Joe Campuzano MD in OV> 05/29/25 1002 DD/ 0938 TD/TT: 05/29/25 0943 Food Prep Worker: [place] [address] [address] Scan Report Signed Patient: Shady Blum Jr MR#: [id number] : 1955 Acct:[id number] Age/Sex: 70 / M ADM Date: 05/29/25 Loc: HO.ED Attending Dr: Ordering Physician: Kim Horn DO Date of Service: 05/29/25 Procedure(s): CT head/brain wo IV con Accession Number(s): [id number] cc: Temo Davis MD; Kim Horn DO Report Number: [id number]: Total DLP = 715.00 mGy-cm Reason for Exam: hea d injury EXAMINATION: CT HEAD WITHOUT CONTRAST CLINICAL INFORMATION: fall injury COMPARISON: None available. TECHNIQUE: Contiguous axial imaging was performed from the skull base to vertex without intravenous administration of contrast. This CT examination was performed using dose optimization techniques as appropriate, various ly including the following: *Automated exposure control *Adjustment of mA and/or kV according to patient size (this includes techniques or standardized protocols for targeted exams where dose is matched to indication/reason for exam; i.e. extremities or head) *Use of iterative reconstruction technique DLP: 714.53 mGy-cm FINDINGS: No acute cortical disruption in the bony calvarium. No acute intracrania l hemorrhage, mass effect, midline shift, hydrocephalus or herniation. Trujillo-white matter differentiation is normal. Posterior cranial fo ssa contents demonstrated no acute hemorrhage or mass effect. Prominence of the extra-axial CSF spaces and cerebral sulci involving mostly the bifrontal parietal lobes and to a lesser extent cerebellar folia. Normal position of t he cerebellar tonsils. Zia cisterna magna. Mucosal thickening, ethmoid air cells and sphenoid sinus. Tympanic cavities and mastoid cells are aerated. CT/CT head/brain wo IV con IMPRESSION: No acute fracture, b gena calvarium. No acute intracrania l hemorrhage. Bifrontal biparietal lobes atrophy. EXAMINATION: CT CERVICAL SPINE WITHOUT CONTRAST CLINICAL INFORMATION: Status post fall. Injury. COMPARISON: None available. TECHNIQUE: Contrast axial image s through the cervical spine using 3 mm collimation with bone and soft tissue algorithm. Sagittal and coronal reformatted images acquired. This CT examination was performed using dose optimization techniques as appropriate, various ly including the following: *Automated exposure control *Adjustment of mA and/or kV according to patient size (this includes techniques or standardized protocols for targeted exams where dose is matched to indication/reason for exam; i.e. extremities or head) *Use of iterative reconstruction technique DLP: 559.89 mGy-cm FINDINGS: Patient's motion artifact. Craniocervical junct ion is intact with normal alignment between the occipital condyles a nd lateral masses of C1. Degenerative changes in the periodontal C1 region. Marginal osteophyte formation and endplate irregularity, decreased intervertebral disc height at C5-6 and to a lesser extent C4-5. Bilateral facet join t hypertrophy pronounced at C4-5 and C5-6 levels. C1 is intact. C2 is intact. C3 is intact. C4 is intact. C5 is intact. C6 is intact. C7 is intact. No prevertebral compartment hematoma. There is a 17 mm lobulated hypodensity in the right midline thyrohyoid ligament. IMPRESSION: Multilevel cervical spondylosis pronounced at C5-6 and to a lesser extent C4-5 and C6-7 without acute fracture or trauma-related listhesis. 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 Fleischner guideline s were followed. Electronically cruzito d by: Joe Araiza MD 05/29/2025 10:02 AM [facility] Dictated By: Joe Stone MD Signed By: <Electronically signed by Joe Campuzano MD in OV> 05/29/25 1002 DD/ TD/TT: 05/29/2543 Food Prep Worker: XR thoracic spine 3V Reviewed date:05/29/2025 10:54:47 AM Interpretation: Performing Lab: Notes/Report: [address] [address] XRay Report Signed Patient: Slavatore Blum Jr MR#: [id number] : 1955 Acct:[id number] Age/Sex: 70 / M ADM Date: 05/29/25 Loc: HO.ED Attending Dr: Ordering Physician: Kim Horn DO Date of Service: 05/29/25 Procedure(s): XR thoracic spine 3V Accession Number(s): [id number] cc: Temo Davis MD; Kim Horn DO Reason for Exam: fall EXAMINATION: XR LUMBOSACRAL SPINE CLINICAL INFORMATION: fall COMPARISON: None available. TECHNIQUE: AP and lateral views. FINDINGS: Multilevel endplate sclerosis marginal osteophyte formation and decreased intervertebral disc height throughout the axial skeleton. Grade 1 retrolisthesis L2-3. Facet joint hypertrophy at L4-5 and L5-S1. No lytic or blastic lesions. No acute cortical disruption. Vascular calcifications, aorta.. XR/XR thoracic spine 3V IMPRESSION: Multilevel spondylosis resulting in grade 1 retrolisthesis L2-3. No gross acute fracture. EXAMINATION: XR THORACIC SPINE CLINICAL INFORMATION: fall COMPARISON: None available. TECHNIQUE: AP lateral and swimmer's projection FINDINGS: Multilevel marginal osteophyte formation and endplate sclerosis and decreased intervertebral disc height throughout the axial skeleton including the C5-6. No acute cortical disruption or malalignment. Mild S-shaped curvature. No lytic or blastic lesions. IMPRESSION: Multilevel spondylosis without acute fracture or trauma-related listhesis. Electronically signed by: Joe Araiza MD 05/29/2025 09:52 AM EST Dictated By: Joe Fortune MD Signed By: <Electronically signed by Joe Campuzano MD in OV> 05/29/25 0952 DD/ TD/TT: 12/16/25 0947 Food Prep Worker: [address] [address] XRay Report Signed Patient: Shady Blum Jr MR#: [id number] : 1955 Acct:[id number] Age/Sex: 70 / M ADM Date: 05/29/25 Loc: HO.ED Attending Dr: Ordering Physician: Kim Horn DO Date of Service: 05/29/25 Procedure(s): XR thoracic spine 3V Accession Number(s): [id number] cc: Temo Davis MD; Kim Horn DO Reason for Exam: fall EXAMINATION: XR LUMBOSACRAL SPINE CLINICAL INFORMATION: fall COMPARISON: None available. TECHNIQUE: AP and lateral views. FINDINGS: Multilevel endplate sclerosis marginal osteophyte formation and decreased intervertebral disc height throughout the axial skeleton. Grade 1 retrolisthes is L2-3. Facet joint hypertro phy at L4-5 and L5-S1. No lytic or blastic lesions. No acute cortical disruption. Vascular calcifications, aorta.. XR/XR thoracic spine 3V IMPRESSION: Multilevel spondylos is resulting in grade 1 retrolisthesis L2-3. No gross acute fracture. EXAMINATION: XR THORACIC SPINE CLINICAL INFORMATION: fall COMPARISON: None available. TECHNIQUE: AP lateral and swimmer's projection FINDINGS: Multilevel marginal osteophyte formation and endplate sclerosis and decreased intervertebral disc height throughout the axial skeleton including the C5-6. No acute cortical disruption or malalignment. Mild S-shaped curvature. No lytic or blastic lesions. IMPRESSION: Multilevel spondylos is without acute fracture or trauma-related listhesis. Electronically cruzito d by: Joe Araiza MD 05/29/2025 09:52 AM EST Dictated By: Joe Stone MD Signed By: <Electronically signed by Joe Campuzano MD in OV> 05/29/2552 DD/ TD/TT: 05/29/25946 Food Prep Worker: XR lumbar spine 2-3V Reviewed date:05/29/2025 10:54:20 AM Interpretation: Performing Lab: Notes/Report: [place] [address] XRay Report Signed Patient: Salvatore Blum Jr MR#: [id number] : 1955 Acct:[id number] Age/Sex: 70 / M ADM Date: 05/29/25 Loc: HO.ED Attending Dr: Ordering Physician: Kim Horn DO Date of Service: 05/29/25 Procedure(s): XR lumbar spine 2-3V Accession Number(s): [id number] cc: Temo Davis MD; Kim Horn DO Reason for Exam: fall EXAMINATION: XR LUMBOSACRAL SPINE CLINICAL INFORMATION: fall COMPARISON: None available. TECHNIQUE: AP and lateral views. FINDINGS: Multilevel endplate sclerosis marginal osteophyte formation and decreased intervertebral disc height throughout the axial skeleton. Grade 1 retrolisthesis L2-3. Facet joint hypertrophy at L4-5 and L5-S1. No lytic or blastic lesions. No acute cortical disruption. Vascular calcifications, aorta.. XR/XR lumbar spine 2-3V IMPRESSION: Multilevel spondylosis resulting in grade 1 retrolisthesis L2-3. No gross acute fracture. EXAMINATION: XR THORACIC SPINE CLINICAL INFORMATION: fall COMPARISON: None available. TECHNIQUE: AP lateral and swimmer's projection FINDINGS: Multilevel marginal osteophyte formation and endplate sclerosis and decreased intervertebral disc height throughout the axial skeleton including the C5-6. No acute cortical disruption or malalignment. Mild S-shaped curvature. No lytic or blastic lesions. IMPRESSION: Multilevel spondylosis without acute fracture or trauma-related listhesis. Electronically signed by: Joe Araiza MD 05/29/2025 09:52 AM EST Dictated By: Joe Fortune MD Signed By: <Electronically signed by Joe Campuzano MD in OV> 05/29/2552 DD/ TD/TT: 05/29/25946 Food Prep Worker: [address] [address] XRay Report Signed Patient: Shady Blum Jr MR#: [id number] : 1955 Acct:[id number] Age/Sex: 70 / M ADM Date: 05/29/25 Loc: HO.ED Attending Dr: Ordering Physician: Kim Horn DO Date of Service: 05/29/25 Procedure(s): XR lum bar spine 2-3V Accession Number(s): [id number] cc: Temo Davis MD; Kim Horn DO Reason for Exam: fall EXAMINATION: XR LUMBOSACRAL SPINE CLINICAL INFORMATION: fall COMPARISON: None available. TECHNIQUE: AP and lateral views. FINDINGS: Multilevel endplate sclerosis marginal osteophyte formation and decreased intervertebral disc height throughout the axial skeleton. Grade 1 retrolisthes is L2-3. Facet joint hypertro phy at L4-5 and L5-S1. No lytic or blastic lesions. No acute cortical disruption. Vascular calcifications, aorta.. XR/XR lumbar spine 2-3V IMPRESSION: Multilevel spondylos is resulting in grade 1 retrolisthesis L2-3. No gross acute fracture. EXAMINATION: XR THORACIC SPINE CLINICAL INFORMATION: fall COMPARISON: None available. TECHNIQUE: AP lateral and swimmer's projection FINDINGS: Multilevel marginal osteophyte formation and endplate sclerosis and decreased intervertebral disc height throughout the axial skeleton including the C5-6. No acute cortical disruption or malalignment. Mild S-shaped curvature. No lytic or blastic lesions. IMPRESSION: Multilevel spondylos is without acute fracture or trauma-related listhesis. Electronically cruzito d by: Joe Araiza MD 05/29/2025 09:52 AM EST Dictated By: Joe Stone MD Signed By: <Electronically signed by Joe Campuzano MD in OV> 05/29/2552 DD/ TD/TT: 05/29/25946 Food Prep Worker: Reason For Referral No Information Medications Medication [...] EVERY 4 HOURS NEEDED for 33 Active Immunizations Vaccine Route Administration Date Status Comme nts Flu Vaccine Unknown 04/23/2014 Administered [employer] Flu Vaccine Unknown 03/20/2015 Administered Work [employer] Flu Vaccine IM Intramuscular 02/24/2016 Administered pt marina d the vaccine at [facility] in [place] PPSV23 (Pnemovax) IM Intramuscular 02/08/2017 Administered Fluarix Quadrivalent IM Intramuscular 02/18/2017 Administe red Shingles IM Intramuscular 03/01/2017 Administered Fluarix Quadrivalent IM Intramuscular 02/21/2018 Administe red Shingrix IM Intramuscular 02/28/2018 Administered TDaP IM Intramuscular 05/01/2018 Administered pt was given the vaccine at [facility] on [employer] [facility] in [place]. Shingrix IM Intramuscular 05/16/2018 Administered Tetanus Unknown 05/01/2018 Administered Fluarix Quadrivalent IM Intramuscular 02/20/2019 Administe red Influenza High Dose IM Intramuscular 02/20/2020 Administer ed Covid Vaccine Unknown 08/07/2020 Administered Moderna SARS-COV-2 Moderna Unknown 09/04/2020 Administered Influenza High Dose Unknown 02/15/2021 [address] [facility] [employer] SARS-COV-2 Moderna Unknown 04/07/2021 Administered SARS-COV-2 Moderna Unknown 09/25/2021 Administered [facility] Influenza High Dose IM Intramuscular 02/13/2022 Administer ed Social History Tobacco Use: Social History Observation [...] Problem Status W/U Status Risk Notes Problem 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) Active confirmed Problem 74103288 Prostatism (N40.0) Active confirmed Problem 151049568 Tubular adenoma of colon (D12.6) Active confirmed Problem 59569977 Essential hypert ension (I10) Active confirmed Problem 9868087 Prediabetes (R73.09) Active confirmed Problem 971736322 History of basal cell cancer (Z85.828) Active confirmed Problem 244986892 Asthmatic bronch itis, mild intermittent, uncomplicated (J45.20) Active confirmed Problem 860150072 PAC (premature a trial contraction) (I49.1) Active confirmed Problem 13188018 Dysthymia (F34.1) Active confirmed Problem 127885374 Pure hypercholesterolemia (E78.00) Active confirmed Problem Obstructive sleep apnea syndrome (96397205) CAMILLA (obstructive sleep apnea) (G47.33) Active confirmed Problem 13570297671002 History of squam ous cell carcinoma (Z85.89) Active confirmed Problem 263080314 Abnormal finding on chest xray (R93.89) Active confirmed Problem 08513609 Bigeminy (I49.8) Active confirmed Problem 54555099 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 Vital Signs Blood pressure diastolic 70 mm Hg 05/03/2025 Height 70.5 in 05/03/2025 Blood pressure systolic 122 mm Hg 05/03/2025 Weight 228 lbs 05/03/2025 BMI 32.25 kg/m2 05/03/2025 Encounters Encounter Location Date Provider Diagnosis Temo Davis MD [address] [place] [address] [id number] 04/27/2025 Temo Davis Prediabetes R73.09 ; Pure hypercholesterolemia E78.00 ; Essential hypertension I10 and Prostatism N40.0 Temo Davis MD [address] [place] [address] [id number] 07/24/2024 Temo Davis Purulent bronchitis J41.1 Tmeo Davis MD [address] [place] [address] [id number] 08/18/2024 Temo Davis Prediabetes R73.09 a nd CAMILLA (obstructive sleep apnea) G47.33 Temo Davis MD [address] [place] [address] [id number] 02/19/2025 Temo aDvis PAC (premature atria l contraction) I49.1 ; Lethargic R53.83 and Essential hypertension I10 Temo Davis MD [address] [place] [address] [id number] 05/03/2025 Temo Davis Essential hypertensi on I10 ; Pure hypercholesterolemia E78.00 ; History of basal cell cancer Z85.828 ; Skin lesion L98.9 ; Prediabetes R73.09 ; Dysthymia F34.1 ; Prostatism N40.0 ; Colon cancer screening Z12.11 and Depression screen Z13.31 Temo Davis MD [address] [place] [address] [id number] 12/25/2024 Temo Davis MD [address] [place] [address] [id number] 02/13/2025 Temo Davis PAC (premature atria l contraction) I49.1 Temo Davis MD [address] [place] [address] [id number] 02/23/2025 [address] MD [address] [place] [address] [id number] 03/25/2025 Temo Davis Essential hypertensi on I10 Assessments Encounter Date Diagnosis (ICD Code) Assessment Notes Treatment Notes Treatment Clinical Notes Section Notes 04/27/2025 Prediabetes (ICD-10 - R73.09) 07/24/2024 Purulent bronchitis (ICD-10 - J41.1) 08/18/2024 Prediabetes (ICD-10 - R73.09) stable, no need for mdication at this time 08/18/2024 CAMILLA (obstructive sle ep apnea) (ICD-10 - G47.33) encouraged to use cpap 02/19/2025 PAC (premature atria l contraction) (ICD-10 - I49.1) not being bothered 02/19/2025 Lethargic (ICD-10 - R53.83) will follow 05/03/2025 Essential hypertensi on (ICD-10 - I10) well controlled, patient verbalized understanding of change in medication 05/03/2025 Pure hypercholesterolemia (ICD-10 - E78.00) well controlled, will continue current regiment 02/13/2025 PAC (premature atria l contraction) (ICD-10 - I49.1) 03/25/2025 Essential hypertensi on (ICD-10 - I10) 04/27/2025 Pure hypercholesterolemia (ICD-10 - E78.00) 02/19/2025 Essential hypertensi on (ICD-10 - I10) running high will recheck in 3 months 05/03/2025 History of basal kiera l cancer (ICD-10 - Z85.828) followed by dr jean baptiste 04/27/2025 Essential hypertensi on (ICD-10 - I10) 05/03/2025 Skin lesion (ICD-10 - L98.9) going to show dr jean baptiste 04/27/2025 Prostatism (ICD-10 - N40.0) 05/03/2025 Prediabetes (ICD-10 - R73.09) stbale, no shantelle for medication at this time 05/03/2025 Dysthymia (ICD-10 - F34.1) stable, will cntinue current regiment 05/03/2025 Prostatism (ICD-10 - N40.0) st[place]ale, will continue current regment 05/03/2025 Colon cancer screeni ng (ICD-10 - Z12.11) guaiac negative 05/03/2025 Depression screen (ICD-10 - Z13.31) negative screen Plan Of Treatment Pending Test Test Name Order Date Electrocardiogram (EKG) 01/31/2016 Electrocardiogram (EKG) 02/11/2017 CT ABD & PELVIS WITH CONTRAST 03/14/2024 XR CHEST 2 VIEW PA & LAT 06/24/2023 XR CHEST 2 VIEW PA & LAT 01/16/2022 XR CHEST 2 VIEW PA & LAT 05/16/2019 XR CHEST 2 VIEW PA & LAT 04/28/2022 Holter monitor 07/26/2015 ECHO 04/28/2022 [facility] [place]. Panel Fast ECG 30 day event monitor 01/16/2022 Next Appt Details Provider Name:Temo estrada, 05/06/2026 07:15:00 AM, [address] [facility], [address], [place], [place], [phone], Provider Name:Temo estrada, 05/13/2026 10:30:00 AM, [address] [facility] [address], [place], [place], [phone], Insurance Providers Payer Name Payer Address Payer Phone Subscriber Number Group Number Insured Name Patient Relationship to Insured Coverage Start Date Coverage End Date [employer] [address] [place] [address] [id number] Salvatore Blum Self - patient is the insured [facility] [address] [place] [address] [id number] Salvatore Blum Self - patient is the insured Medical (General) History Medical History History ICD Code colonoscopy 2010. due in 5 y ears; colonoscopy 03/19/[address] Ulloa - repeat 5 years; 07/16/21 colonoscopy Artemio repeat 5yrs HX guaiac positive stools HX abnormal EKG
--- OUTSIDE RECORDS SUMMARY | 2025-05-29 12:17 | XMS_ITS | Encounter Summary ---
Author Organization [facility] Address [address] [place] [address] Care Team Providers Care Pad Extraction Tender Name Role Phone Physician, No Pcp Primary Care Provider Unavaila ble Encounter Details Date Type Department Care Team (Late st Contact Info) Description 09/13/2024 Lab Requisition [facility] - Main Lab [address] [facility] [place] [address] lAonzo Robbins MD [address] [facility] [address] [place] [address] Elevated prostate specific antigen (PSA) Social History Tobacco Use Types Packs/Day Years Used Date Smoking Tobacco: Never Assessed Sex and Gender Information Value Date Recorded Sex Assigned at Not on file Legal Sex Male 2:22 PM EDT Gender Identity Not on file Sexual Orientation Not on file documented as of this encounter Plan of Treatment Not on file documented as of this encounter Procedures Procedure Name Priority Date/Time Associated Diagnosis Comments AP OUTSIDE CONSULT Routine 09/12/2024 Elevated prostate specific antigen (PSA) documented in this encounter Results * Anatomic pathology outside consult (09/12/2024) Final Diagnosis A. Prostate, Left Middle [place] Biopsy: -BENIGN PROSTATE TISSUE B. Prostate, Left Lateral [place] Biopsy: -BENIGN PROSTATE TISSUE C. Prostate, Left Middle Middle Biopsy: -BENIGN PROSTATE TISSUE D. Prostate, Left Lateral Middle Biopsy: -BENIGN PROSTATE TISSUE E. Prostate, Left Middle Base Biopsy: -BENIGN PROSTATE TISSUE F. Prostate, Left Lateral Base Biopsy: -BENIGN PROSTATE TISSUE G. Prostate, Right Middle [place] Biopsy: -BENIGN PROSTATE TISSUE H. Prostate, Right Lateral [place] Biopsy: -BENIGN PROSTATE TISSUE I. Prostate, Right Middle Middle Biopsy: -BENIGN PROSTATE TISSUE J. Prostate, Right Lateral Middle Biopsy: -BENIGN PROSTATE TISSUE K. Prostate, Right Middle Base Biopsy: -BENIGN PROSTATE TISSUE L. Prostate, Right Lateral Base Biopsy: -BENIGN PROSTATE TISSUE 09/19/2024 4:09 PM EDT [facility] at 1609 EDT Clinical Information Elevated PSA = 4.97 (04/25/24) R97.20 [id number] 09/19/2024 4:09 PM EDT [facility] Gross Description A. Prostate, Left Middle [place] Biopsy: Received, properly labeled, are two H and E stained slides and two unstained slides. B. Prostate, Left Lateral [place] Biopsy: Received, properly labeled, are two H and E stained slides and two unstained slides. C. Prostate, Left Middle Middle Biopsy: Received, properly labeled, are two H and E stained slides and two unstained slides. D. Prostate, Left Lateral Middle Biopsy: Received, properly labeled, are two H and E stained slides and two unstained slides. E. Prostate, Left Middle Base Biopsy: Received, properly labeled, are two H and E stained slides and two unstained slides. F. Prostate, Left Lateral Base Biopsy: Received, properly labeled, are two H and E stained slides and two unstained slides. G. Prostate, Right Middle [place] Biopsy: Received, properly labeled, are two H and E stained slides and two unstained slides. H. Prostate, Right Lateral [place] Biopsy: Received, properly labeled, are two H and E stained slides and two unstained slides. I. Prostate, Right Middle Middle Biopsy: Received, properly labeled, are two H and E stained slides and two unstained slides. J. Prostate, Right Lateral Middle Biopsy: Received, properly labeled, are two H and E stained slides and two unstained slides. K. Prostate, Right Middle Base Biopsy: Received, properly labeled, are two H and E stained slides and two unstained slides. L. Prostate, Right Lateral Base Biopsy: Received, properly labeled, are two H and E stained slides and two unstained slides. /al 09/19/2024 4:09 PM EDT [facility] Disclaimer Unless otherwise specified, all tissue is 10% NB formalin fixed and paraffin embedded. Technical pathology services provided by [facility] at [address] [place] [address] [address], [place] [address] (CLIA #[id number]/ Asiya Wei MD, Derrick Follower) 09/19/2024 4:09 PM EDT [facility] Tissue Prostate / Unknown 09/12/20242024 2:29 PM EDT Tissue specimen (specimen) Prostate / Unknown 09/12/2024 09/13/2024 2: 29 PM EDT Tissue specimen (specimen) Prostate / Unknown 09/12/2024 09/13/2024 2: 29 PM EDT Tissue specimen (specimen) Prostate / Unknown 09/12/2024 09/13/2024 2: 29 PM EDT Tissue specimen (specimen) Prostate / Unknown 09/12/2024 09/13/2024 2: 29 PM EDT Tissue specimen (specimen) Prostate / Unknown 09/12/2024 09/13/2024 2: 29 PM EDT Tissue specimen (specimen) Prostate / Unknown 09/12/2024 09/13/2024 2: 29 PM EDT Tissue specimen (specimen) Prostate / Unknown 09/12/2024 09/13/2024 2: 29 PM EDT Tissue specimen (specimen) Prostate / Unknown 09/12/2024 09/13/2024 2: 29 PM EDT Tissue specimen (specimen) Prostate / Unknown 09/12/2024 09/13/2024 2: 29 PM EDT Tissue specimen (specimen) Prostate / Unknown 09/12/2024 09/13/2024 2: 29 PM EDT Tissue specimen (specimen) Prostate / Unknown 09/12/2024 09/13/2024 2: 29 PM EDT us Alonzo Robbins MD LAB PATHOLOGY ORDERABLES Final Result [facility] [address] [place] [address], documented in this encounter Visit Diagnoses Diagnosis Elevated prostate specific antigen (PSA) documented in this encounter Care Teams Pad Extraction Tender Relationship Specialty Start Date End Date Physician, No Pcp PCP - General 09/13/24 documented as of this encounter
== END 2025-05-29 10:52 | disposition home or self-care (01) ==
PROVIDERS: Emergency Provider Emergency Medicine; PCP Internal Medicine
DX: S06.0X0A Concussion without loss of consciousness, initial encounter (principal); M54.6 Pain in thoracic spine; M54.50 Low back pain, unspecified; M54.2 Cervicalgia; R42 Dizziness and giddiness; R51.9 Headache, unspecified; R11.0 Nausea; E78.00 Pure hypercholesterolemia, unspecified; Z79.899 Other long term (current) drug therapy
CPT/HCPCS: 70450; 72072; 72100; 72125; 99282; 99284

== ENCOUNTER → 2025-05-29 09:20 | Outpatient (BNV) | payer MEDICARE, OTHER, SELFPAY | PROVIDERS: PCP Internal Medicine; Visit Provider Radiology Diagnostic Radiology | DX: M47.812 Spondylosis without myelopathy or radiculopathy, cervical region (principal); S09.90XA Unspecified injury of head, initial encounter; G31.9 Degenerative disease of nervous system, unspecified; M47.816 Spondylosis without myelopathy or radiculopathy, lumbar region; M47.814 Spondylosis without myelopathy or radiculopathy, thoracic region; Z04.3 Encounter for examination and observation following other accident | CPT/HCPCS: 70450; 72072; 72100; 72125 ==

== ENCOUNTER 2025-06-10 01:23 | Emergency (ER) | payer MEDICARE, OTHER, SELFPAY ==
--- OUTSIDE RECORDS SUMMARY | 2024-08-18 05:00 | XMS_ITS ---
Author Organization Temo Davis MD Address [address] [place], [place] [phone] Care Team Providers Care Manifest Clerk Name Role Phone Temo Davis Primary Care [...] Risk Notes Problem Obstructive sleep apnea syndrome ([id number]) CAMILLA (obstructiv e sleep apnea) (G47.33) Active confirmed Vital Signs Blood pressure systolic 142 mm Hg 08/19/19 25 Blood pressure diastolic 86 mm Hg 025 Height 70.5 in 08/18/2024 Weight 227 lbs 08/18/2024 BMI 32.11 kg/m2 08/18/2024 Encounters Encounter Location Date Provider Diagnosis Temo Davis MD [address] [place] [address] [place] [phone] 08/18/2024 Temo Davis Prediabetes R73.09 and CAMILLA [...] Details Provider Name:Temo estrada, 05/06/2026 07:15:00 AM, [address] [place] [address], [address] [place] [address], [phone], Provider Name:Temo estrada, 05/13/2026 10:30:00 AM, [address] [place] [address], [address] [place] [address], [phone], Progress Notes * Salvatore BLUM JrDOB:1954 (69 yo M)Acc No.[id number]:08/18/2024 Progress Notes Patient: Joshua Salvatore KINSEY Jr Provider: Hansel Davis MD :1955 A ge:69 Y S ex:Male Date:08/18/2024 Address:[address] [place] [address], [place] [id number] Subjective: * Chief Complaints: * 3 month [...] 2947 ASSAY, GLUCOSE, BLOOD QUANT, Modifiers: QW 61577 GLYCATED HEMOGLOBIN TEST, Modifiers: QW * * Sign off status: Completed true * Provider: Hansel Davis MD Date: 0 08/18/2024 Generated for Gus ng/Fasommerg/eTransmitting on: 1 08/11/2024 03:29 AM EST History and Physical Notes * [...]
--- OUTSIDE RECORDS SUMMARY | 2024-12-25 04:08 | XMS_ITS ---
Author Organization Temo Davis MD Address [address] [place] [phone] Care Team Providers Care Machinery Rigger Name Role Phone Temo Davis Primary Care Provider REASON FOR VISIT refill Medications Medication SIG (Take, Route, Frequency, Duration) Notes Start Date End Date Status Escitalopram Oxalate 10 MG 1 tablet Oral ly Once a day for 90 days Active Encounters Encounter Location Date Provider Diagnosis Temo Davis MD [address] [place] [address] [place] [phone] 12/25/2024 Temo Davis Plan Of Treatment Medication Medication Name Sig Start Date Stop Date Notes Escitalopram Oxalate 10 MG 1 tablet Oral ly Once a day for 90 days Next Appt Details Provider Name:Temo estrada, 05/06/2026 07:15:00 AM, [address] [place] [address], [phone], Provider Name:Temo estrada, 05/13/2026 10:30:00 AM, [address] [place] [address], [phone], Progress Notes * Salvatore BLUM JrDOB:1954 (69 yo M)Acc No.[id number]:12/25/2024 Patient: Joshua Salvatore KINSEY Jr :1955 A ge:69 Y S ex:Male Address:[address] [place] [address], [place] [address] * Refills Refill Escitalopram Oxalate Tablet, 10 MG, Orally, 90 Tablet, 1 tablet, Once a day, 90 days, Refills=3 * true * Date: Generated for Gus back/Marisela/Erica on: 08/11/2024 03:28 AM EST
--- OUTSIDE RECORDS SUMMARY | 2025-02-13 08:01 | XMS_ITS ---
Author Organization Temo Davis MD Address [address] [place] [phone] Care Team Providers Care Visiting Teacher Name Role Phone Temo Davis Primary Care Provider REASON FOR VISIT refill Encounters Encounter Location Date Provider Diagnosis Temo Davis MD [address] [place] [address] [place] [phone] 02/13/2025 Temo Davis PAC (premature atrial contraction) I49.1 Assessments Encounter Date Diagnosis (ICD Code) Assessment Notes Treatment Notes Treatment Clinical Notes Section Notes 02/13/2025 PAC (premature atrial contraction) (ICD-10 - I49.1) Plan Of Treatment Next Appt Details Provider Name:Temo estrada, 05/06/2026 07:15:00 AM, [address] [place] [address], [phone], Provider Name:Temo estrada, 05/13/2026 10:30:00 AM, [address] [place] [address], [phone], Progress Notes * Salvatore BLUM JrDOB:1954 (70 yo M)Acc No.[id number]:02/13/2025 Patient: Joshua Salvatore KINSEY Jr :1955 A ge:70 Y S ex:Male Address:[address] [place] [phone] * true * Date: Generated for Gus back/Marisela/Erica on: 08/11/2024 03:28 AM EST
--- OUTSIDE RECORDS SUMMARY | 2025-02-19 04:15 | XMS_ITS ---
Author Organization Temo Davis MD Address [address] [place] [phone] Care Team Providers Care It Specialist Name Role Phone Temo Davis Primary Care Provider [phone] Allergies Allergen (clinical drug ingredient) Drug/Non Drug Allergy documented on EMR Reaction Allergy Type Onset Date Status hallothane (uncoded) cardiac arrest Allergy Active REASON FOR VISIT CHECK BP MEDS, check dose of Metoprolol Medications Medication SIG (Take, Route, Frequency, Duration) Notes Start Date End Date Status Albuterol Sulfate HFA 108 (90 Base) MCG/ACT INHALE 1 PUFF BY MOUTH EVERY 4 HOURS NEEDED for 33 Active Tamsulosin HCl 0.4 MG TAKE 1 CAPSULE BY MOUTH EVERY DAY for 90 Active ProAir HFA 108 (90 Base) MCG/ACT 2 puffs as needed Inhalation every 4 hrs for 30 days 09/18/2013 Not-Taking Escitalopram Oxalate 10 MG 1 tablet Orally Once a day for 90 days Active Metoprolol Succinate ER 50 MG TAKE 1 TABLET BY MOUTH DAILY Active Vital Signs Blood pressure systolic 148 mm Hg 02/20/20 25 Blood pressure diastolic 84 mm Hg 025 Height 70.5 in 02/19/2025 Weight 228 lbs 02/19/2025 BMI 32.25 kg/m2 02/19/2025 Encounters Encounter Location Date Provider Diagnosis Temo Davis MD [address] [place] [phone] 02/19/2025 Temo Davis PAC (premature atria l contraction) I49.1 ; Lethargic R53.83 and Essential hypertension I10 Assessments Encounter Date Diagnosis (ICD Code) Assessment Notes Treatment Notes Treatment Clinical Notes Section Notes 02/19/2025 PAC (premature atrial contraction) (ICD-10 - I49.1) not being bothered 02/19/2025 Lethargic (ICD-10 - R53.83) will follow 02/19/2025 Essential hypertension (ICD-10 - I10) running high will recheck in 3 months Plan Of Treatment Medication Medication Name Sig Start Date Stop Date Notes Metoprolol Succinate ER 50 MG TAKE 1 TABLET BY MOUTH DAILY Treatment Notes Assessment Notes PAC (premature atrial contraction) not b eing bothered Lethargic will follow Essential hypertension running high will recheck in 3 months Next Appt Details Follow Up: 3 Months, Reason: Provider Name:Temo estrada, 05/06/2026 07:15:00 AM, [address] [place] [address], [address], [phone], Provider Name:Temo estrada, 05/13/2026 10:30:00 AM, [address] [place] [address], [place] [address], [place], [place], [phone], Progress Notes * MARIAN Salvatore Hamm JrDOB:1954 (70 yo M)Acc No.[id number]:02/19/2025 Progress Notes Patient: Salvatore BURGOS Hansel Sheehan Provider: Hansel Davis MD :1955 A ge:70 Y S ex:Male Date:02/19/2025 Address:[address] [place], [place] [phone] Subjective: * Chief Complaints: * C HECK BP MEDScheck dose of Metoprolol * HPI: S ymptom(s): patient is a 70 yo male here for check of BP and medication/ fluttering is gone and never cut the metprolols and still has a little fatigue. using the cpap at least 5 hours. * ROS: G eneral/Constitutional: Denies C hills. D enies F atigue. D enies F ever. D enies H eadache. E NT: Denies S ore throat. R espiratory: Denies C ough. D enies S hortness of breath at rest. D enies S hortness of breath with exertion. C ardiovascular: Denies C hest pain at rest. D enies C hest pain with exertion. D enies D izziness. D enies P alpitations. D enies S hortness of breath. G astrointestinal: Denies D iarrhea. D enies N ausea. * Medical History: * Surgical History: * Hospitalization/Major Diagno stic Procedure: * Medications: T akingAlbuterol Sulfate HFA 108 (90 Base) MCG/ACT Aerosol Solution INHALE 1 PUFF BY MOUTH EVERY 4 HOURS NEEDED Metoprolol Succinate ER 50 MG Tablet Extended Release 24 Hour TAKE 1 TABLET BY MOUTH DAILY Tamsulosin HCl 0.4 MG Capsule TAKE 1 CAPSULE BY MOUTH EVERY DAY Escitalopram Oxalate 10 MG Tablet 1 tablet Orally Once a day Taking Albuterol Sulfate HFA 108 (90 Base) MCG/ACT Aerosol Solution INHALE 1 PUFF BY MOUTH EVERY 4 HOURS NEEDED Taking Metoprolol Succinate ER 50 MG Tablet Extended Release 24 Hour TAKE 1 TABLET BY MOUTH DAILY Taking Tamsulosin HCl 0.4 MG Capsule TAKE 1 CAPSULE BY MOUTH EVERY DAY Taking Escitalopram Oxalate 10 MG Tablet 1 tablet Orally Once a day Not-Taking/PRNProAir HFA 108 (90 Base) MCG/ACT Aerosol Solution 2 puffs as needed Inhalation every 4 hrs Not-Taking/PRN ProAir HFA 108 (90 Base) MCG/ACT Aerosol Solution 2 puffs as needed Inhalation every 4 hrs DiscontinuedFenofibrate 145 MG Tablet TAKE 1 TABLET BY MOUTH EVERY DAY Medication List reviewed and reconciled with the patientDiscontinued Fenofibrate 145 MG Tablet TAKE 1 TABLET BY MOUTH EVERY DAY Medication List reviewed and reconciled with the patient * Allergies: h allothane: cardiac arrestyes[Allergies Verified] Objective: * Vitals: H t: 70.5, Wt: 228, BMI:32.25, BP:148/84, Repeat BP:170/80, Wt-k.42. * Examination: G eneral Examination: GENERAL APPEARANCE: a lert, well hydrated, in no distress.? HEAD: n ormocephalic. SKIN: g ood turgor. HEART: r egular rate and rhythm, no murmurs, rubs, gallops.? LUNGS: n o wheezes, rales, rhonchi, good air movement, clear to auscultation bilaterally. Assessment: * Assessment: 1. P AC (premature atrial contraction) - I49.1 (Primary) 2 . L ethargic - R53.83 3 . E ssential hypertension - I10 Plan: * Treatment: 2. L ethargic Notes: will follow 3. E ssential hypertension Continue Metoprolol Succinate ER Tablet Extended Release 24 Hour, 50 MG, TAKE 1 TABLET BY MOUTH DAILY. Notes: running high will recheck in 3 months * Procedure Codes: * Follow Up: 3 Months * * Sign off status: Completed true * Provider: Hansel Davis MD Date: 0 02/19/2025 Generated for Gus back/Marisela/Adalbertoitting on: 1 08/11/2024 03:28 AM EST History and Physical Notes * HPI (History of Present Illness) Category Sub-Category Detail Notes Category Not es Symptom(s) patient is a 70 yo male here for check of BP and medication/ fluttering is gone and never cut the metprolols and still has a little fatigue. using the cpap at least 5 hours Examination Category Sub-Category Detail Notes Category Not es General Examination GENERAL APPEARANCE: alert, w ell hydrated, in no distress HEAD: normocephalic HEART: regular rate and rhy thm, no murmurs, rubs, gallops LUNGS: no wheezes, rales, r honchi, good air movement, clear to auscultation bilaterally SKIN: good turgor
--- OUTSIDE RECORDS SUMMARY | 2025-02-23 14:03 | XMS_ITS ---
Author Organization Temo Davis MD Address [address] [place] [phone] Care Team Providers Care Floorwalker Name Role Phone Temo Davis Primary Care Provider REASON FOR VISIT Blood Preasure Medications Medication SIG (Take, Route, Fr equency, Duration) Notes Start Date End Date Status Valsartan 80 MG 1 tablet Orally Once a day for 30 days 02/26/2025 Active Encounters Encounter Location Date Provider Diagnosis Temo Davis MD [address] [place], [place] [address] [address] [place] [phone] 02/23/2025 Temo Davis Plan Of Treatment Medication Medication Name Sig Start Date Stop Date Notes Valsartan 80 MG 1 tablet Orally Once a day for 30 days Next Appt Details Provider Name:Temo estrada, 05/06/2026 07:15:00 AM, [address] [place] [address], [phone], Provider Name:Temo estrada, 05/13/2026 10:30:00 AM, [address] [place] [address], [phone], Progress Notes * Salvatore BLUM JrDOB:1954 (70 yo M)Acc No.[id number]:02/23/2025 Patient: Joshua Salvatore KINSEY Jr :1955 A ge:70 Y S ex:Male Address:[address] [place] [address], [place] [address] * Refills Start Valsartan Tablet, 80 MG, Orally, 30, 1 tablet, Once a day, 30 days, Refills=5 * true * Date: Generated for Gus back/Marisela/Erica on: 08/11/2024 03:29 AM EST
--- OUTSIDE RECORDS SUMMARY | 2025-03-25 10:21 | XMS_ITS ---
Author Organization Temo Davis MD Address [address] [place] [phone] Care Team Providers Care Toy Mechanic Name Role Phone Temo Davis Primary Care Provider REASON FOR VISIT New Refill Request Medications Medication SIG (Take, Route, Frequency, Duration) Notes Start Date End Date Status Metoprolol Succinate ER 50 MG TAKE 1 TABLET BY MOUTH DAILY Orally Once a day for 90 days Active Encounters Encounter Location Date Provider Diagnosis Temo Davis MD [address] [place] [phone] 03/25/2025 Temo Davis Essential hypertension I10 Assessments Encounter Date Diagnosis (ICD Code) Assessment Notes Treatment Notes Treatment Clinical Notes Section Notes 03/25/2025 Essential hypertension (ICD-10 - I10) Plan Of Treatment Medication Medication Name Sig Start Date Stop Date Notes Metoprolol Succinate ER 50 MG TAKE 1 TAB LET BY MOUTH DAILY Orally Once a day for 90 days Next Appt Details Provider Name:Temo estrada, 05/06/2026 07:15:00 AM, [address] [place] [address], [address], [phone], Provider Name:Temo estrada, 05/13/2026 10:30:00 AM, [address] [place] [address], [address], [phone], Progress Notes * Salvatore BLUM JrDOB:1954 (70 yo M)Acc No.[id number]:03/25/2025 Patient: Salvatore BURGOS Jr :1955 A ge:70 Y S ex:Male Address:[address] [place] [id number] * Refills Refill Metoprolol Succinate ER Tablet Extended Release 24 Hour, 50 MG, Orally, 90, TAKE 1 TABLET BY MOUTH DAILY, Once a day, 90 days, Refills=3 * true * Date: Generated for Gus back/Marisela/Rosaleesmitting on: 08/11/2024 03:29 AM EST
--- OUTSIDE RECORDS SUMMARY | 2025-04-27 03:00 | XMS_ITS ---
Author Organization Temo Davis MD Address [address] [place], [place] [phone] Care Team Providers Care Erp Technical Lead Name Role Phone Temo Davis Primary Care Provider [phone] Results Component Value Reference Range Notes Complete Blood Count Auto Di ff Reviewed date:04/27/2025 12:39:17 PM Interpretation: Performing Lab:[facility], [address] [place] [phone] Notes/Report: White Blood Count 8.0 4.8-10.8 X10*3/uL Red Blood Count 5.88 4.60-5.80 X10*6/uL Hemoglobin 17.3 14.0-18.0 g/dl Hematocrit 51.5 42.0-52.0 % Mean Corpuscular Volume 87.6 80.0-98.0 fL Mean Corpuscular Hemoglobin 29.4 27.0-33.0 pg Mean Corpuscular HGB Conc 33.6 31.0-36.0 g/dl Red Cell Distribution Width 13.5 11.0-16.0 % Platelet Count 215 160-400 X10*3/uL Mean Platelet Volume 8.5 9.4-12.4 fL Neutrophils Percent Auto 56.8 45-73 % Imm Gran Pct Auto 0.5 0.0-0.4 % Lymphocytes Percent Auto 33.0 20-40 % Monocytes Percent Auto 7.7 2-11 % Eosinophils Percent Auto 1.5 0-4 % Basophils Percent Auto 0.5 0-2 % NRBC Pct Auto 0.0 0.0-0.2 /100WBC Neutrophils Absolute Auto 4.6 2.0-8.3 x10*3/u L Imm Gran Abs Auto 0.04 0.00-0.03 X10*3/uL Lymphocytes Absolute Auto 2.7 1.2-4.9 X10*3/u L Monocytes Absolute Auto 0.6 0.1-1.2 X10*3/uL Eosinophils Absolute Auto 0.1 0.0-0.4 X10*3/u L Basophils Absolute Auto 0.0 0.0-0.2 X10*3/uL NRBC Abs Auto 0.000 0.0-0.012 X10*3/uL Lipid Panel Reviewed date:04/27/2025 12:18:43 PM Interpretation: Performing Lab:[address] [phone] Notes/Report: Triglycerides 160 <150 mg/dL Desirable Triglyceride: less than 150 mg/dL Borderline High Triglyceride 150-199 mg/dL High Triglyceride: 200-499 mg/dL Very High Triglyceride: greater than or equal to 5OO mg/dL Cholesterol 143 <200 mg/dL Desirable Cholesterol: less than 200 mg/dL Borderline High Cholesterol: 200-239 mg/dL High Cholesterol: greater than 239 mg/dL LDL Cholesterol Calculated 74 <100 mg/dL Desirable LDL: less than 100 mg/dL Near Optimal/Above Optimal LDL: 110-129 mg/dL Borderline High LDL: 130-159 mg/dL High LDL: 160-189 mg/dL Very High LDL: greater than or equal to 190 mg/dL HDL Cholesterol 37 >40 mg/dL Desirable HDL: greater than 40 mg/dL Note: This HDL assay may give artificially low results in patients with liver disease. PSA,Total (Free>4and<10) Reviewed date:05/04/2025 11:07:25 AM Interpretation:05-03-2025 Performing Lab:[address] [phone] Notes/Report: PSA,Total (Free>4and<10) 5.01 0.00-4.00 ng/mL PSA methodology: Person Alinity i Chemiluminescent Microparticle Immunoassay (CMIA) Microalbumin, Random Reviewed date:04/27/2025 12:37:53 PM Interpretation: Performing Lab:[facility], [address] [place] [phone] Notes/Report: Creatinine Urine 136.23 Microalbumin Urine 7.0 Microalbum/Creatinine Ratio Ur 5.1 <30 ug/mg cr Albumin/Creatinine Ratio Reference Ranges: Normal: < 30 ug/mg creatinine Microalbuminuria: 30 - 300 ug/mg creatinine Clinical Albuminuria: > 300 ug/mg creatinine Hemoglobin A1c Reviewed date:04/27/2025 12:19:11 PM Interpretation: Performing Lab:[facility], [address] [place] [phone] Notes/Report: Hemoglobin A1c % 5.6 <6.0 % Hemoglobin A1C Reference Range Adults: 4.8 - 6.0 % Non diabetic: < 6.0 % Goal: < 7.0 % Additional Action Suggested: > 8.0 % Note: Hemoglobin A1c results are invalid for patients with abnormal amounts of HbF. Blood transfusions may impact the HbA1c concentration in the patient sample. Estimated Average Glucose 114 eAG = Estimated average glucose which is %A1C expressed as average glucose, using the formula of the E5X-[place] Average Glucose study (ADAG), Diabetes Care, Vol.31,#8, Jan. 2007 UA ClnCatch+Micro w/rflx Cul t Reviewed date:04/27/2025 12:50:03 PM Interpretation: Performing Lab:[facility], [address] [place] [phone] Notes/Report: Urine, Clean Catch Color Urine Yellow Appearance Urine Clear PH 6.0 5.0-9.0 Glucose Urine UA Negative Negative mg/dL Urine Blood Negative Negative Specific [place] - Urine 1.025 1.005-1.025 Urine Protein Negative Neg-Trace mg/dL Urine Ketones Negative Negative mg/dL Nitrite Urine Negative Negative Leukocyte Esterase Urine Negative Negative RBC Urine 0-2 0-2 /HPF WBC Urine 0-5 0-5 /HPF Squamous Epithelial Cell Urine 0-2 0-2 /HPF Bacteria Urine None Seen None Seen Hyaline Casts Urine 0-2 0-2 /LPF REASON FOR VISIT fasting yearly labs Encounters Encounter Location Date Provider Diagnosis Temo Davis MD [address] [place], [place] [phone] 04/27/2025 Temo Bombardier Prediabetes R73.09 ; Pure hypercholesterolemia E78.00 ; Essential hypertension I10 and Prostatism N40.0 Assessments Encounter Date Diagnosis (ICD Code) Assessment Notes Treatment Notes Treatment Clinical Notes Section Notes 04/27/2025 Prediabetes (ICD-10 - R73.09) 04/27/2025 Pure hypercholesterolemia (ICD-10 - E78.00) 04/27/2025 Essential hypertensi on (ICD-10 - I10) 04/27/2025 Prostatism (ICD-10 - N40.0) Plan Of Treatment Pending Test Test Name Order Date Comprehensive [place]. Panel Fast Next Appt Details Provider Name:Temo Cheatham ier, 05/06/2026 07:15:00 AM, [address] [place] [address], [address], [phone], Provider Name:Temo Cheatham ier, 05/13/2026 10:30:00 AM, [address] [place] [address], [address], [phone], Progress Notes * Salvatore BLUM JrDOB:1954 (70 yo M)Acc No.[id number]:04/27/2025 Progress Note Patient: Joshua KINSEY Salvatore Hamm Provider: Hansel Davis MD :1955 A ge:70 Y S ex:Male Date:04/27/2025 Address:[address] [place], [place] [phone] Subjective: * Chief Complaints: * 1 . Fasting yearly labs. * Medical History: Objective: * Vitals: Assessment: * Assessment: 1. P rediabetes - R73.09 (Primary) 2 . P ure hypercholesterolemia - E78.00? 3. E ssential hypertension - I10 4 . P rostatism - N40.0? Plan: * Treatment: 2. P ure hypercholesterolemia L AB: Comprehensive [place]. Panel Fast L AB: Complete Blood Count Auto Diff (Collection Date & Time - 04/27/2025 08:00 AM) L AB: Lipid Panel (Collection Date & Time - 04/27/2025 08:00 AM) L AB: PSA,Total (Free>4and<10) (Collection Date & Time - 04/27/2025 08:00 AM) L AB: Microalbumin, Random (Collection Date & Time - 04/27/2025 08:00 AM) L AB: Hemoglobin A1c (Collection Date & Time - 04/27/2025 08:00 AM) L AB: UA ClnCatch+Micro w/rflx Cult (Collection Date & Time - 04/27/2025 08:00 AM) 3. E ssential hypertension L AB: Comprehensive [place]. Panel Fast L AB: Complete Blood Count Auto Diff (Collection Date & Time - 04/27/2025 08:00 AM) L AB: Lipid Panel (Collection Date & Time - 04/27/2025 08:00 AM) L AB: PSA,Total (Free>4and<10) (Collection Date & Time - 04/27/2025 08:00 AM) L AB: Microalbumin, Random (Collection Date & Time - 04/27/2025 08:00 AM) L AB: Hemoglobin A1c (Collection Date & Time - 04/27/2025 08:00 AM) L AB: UA ClnCatch+Micro w/rflx Cult (Collection Date & Time - 04/27/2025 08:00 AM) 4. P rostatism L AB: Comprehensive [place]. Panel Fast L AB: Complete Blood Count Auto Diff (Collection Date & Time - 04/27/2025 08:00 AM) L AB: Lipid Panel (Collection Date & Time - 04/27/2025 08:00 AM) L AB: PSA,Total (Free>4and<10) (Collection Date & Time - 04/27/2025 08:00 AM) L AB: Microalbumin, Random (Collection Date & Time - 04/27/2025 08:00 AM) L AB: Hemoglobin A1c (Collection Date & Time - 04/27/2025 08:00 AM) L AB: UA ClnCatch+Micro w/rflx Cult (Collection Date & Time - 04/27/2025 08:00 AM) * Procedure Codes: 3 6415 VENIPUNCT, ROUTINE* * * The named appointment provid er may or may not be the originator of this progress note, and it is not deemed complete until electronically signed by the appointment provider. Sign off status: Pending * Provider: Hansel Davis MD Date: 06/27/2024 Generated for Gus back/Marisela/Erica on: 08/11/2024 03:28 AM EST
--- OUTSIDE RECORDS SUMMARY | 2025-05-03 04:30 | XMS_ITS ---
Author Organization Temo Davis MD Address [address] [place], [place] [phone] Care Team Providers Care Senior Policy Associate Name Role Phone Temo Davis Primary Care Provider [phone] Allergies Allergen (clinical drug ingredient) Drug/Non Drug [...] Date Provider Diagnosis Temo Davis MD [address] [place] [address] [place] [phone] 05/03/2025 Temo Davis Essential hypertensi on I10 [...] Provider Name:Temo Cheatham ier, 05/06/2026 07:15:00 AM, [address] [place] [address], [address], [phone], Provider Name:Temo Cheatham ier, 05/13/2026 10:30:00 AM, [address] [place] [address], [place] [address], [place], [place], [phone], Progress Notes * Salvatore BLUM JrDOB:1954 (70 yo M)Acc No.[id number]:05/03/2025 Patient: Joshua Salvatore KINSEY Provider: Hansel Davis MD :1955 A ge:70 Y S ex:Male Date:05/03/2025 Address:[address] [place] [address], [id number] Subjective: * Chief Complaints: * r eview [...] mg/dL Urine Blood Negative Negative - Specific [place] - Urine 1.025 1.005-1.025 - Urine Protein [...] true * Provider: Hansel Davis MD Date: 07/03/2024 Generated for Gus back/Marisela/Erica on: 08/11/2024 03:29 AM EST History and Physical [...]
--- OUTSIDE RECORDS SUMMARY | 2025-05-31 04:01 | XMS_ITS ---
Author Organization Temo Davis MD Address [address] [place] [phone] Care Team Providers Care Lease Analyst Name Role Phone Temo Davis Primary Care Provider REASON FOR VISIT ER Visit rec'd Encounters Encounter Location Date Provider Diagnosis Temo Davis MD [address] [place] [address] [address] [place] [id number] 05/31/2025 Temo Davis Plan Of Treatment Next Appt Details Provider Name:Temo Cheatham ier, 05/06/2026 07:15:00 AM, [address] [place] [address], [address], [phone], Provider Name:Temo estrada, 05/13/2026 10:30:00 AM, [address] [place] [address], [phone], Progress Notes * Salvatore BLUM JrDOB:1954 (70 yo M)Acc No.[id number]:05/31/2025 Patient: Joshua Salvatore KINSEY Jr :1955 A ge:70 Y S ex:Male Address:[address] [place] [id number] * true * Date: Generated for Printi ng/Faxing/eTransmitting on: 08/11/2024 03:29 AM EST
--- OUTSIDE RECORDS SUMMARY | 2025-06-04 09:15 | XMS_ITS ---
Author Organization Temo Davis MD Address [address] [place], [place] [id number] Care Team Providers Care Soft Water Mechanic Name Role Phone Temo Davis Primary Care Provider Allergies Allergen (clinical drug ingredient) Drug/Non Drug Allergy documented on EMR Reaction Allergy Type Onset Date Status hallothane (uncoded) cardiac arrest Allergy Active REASON FOR VISIT F/U ER visit after a fall Medications Medication SIG (Take, Route, Frequency, Duration) Notes Start Date End Date Status Tadalafil 20 MG 1 tablet as needed Orally Once a day Active Tamsulosin HCl 0.4 MG TAKE 1 CAPSULE BY MOUTH EVERY DAY Active Escitalopram Oxalate 10 MG 1 tablet Orally Once a day Active Albuterol Sulfate HFA 108 (90 Base) MCG/ACT INHALE 1 PUFF BY MOUTH EVERY 4 HOURS NEEDED for 33 Active Metoprolol Succinate ER 25 MG 1 tablet Orally Once a day for 90 days 05/03/2025 Active Valsartan 80 MG 1 tablet Orally Once a day 02/26/2025 Active ProAir HFA 108 (90 Base) MCG/ACT 2 puffs as needed Inhalation every 4 hrs for 30 days 09/18/2013 Not-Taking Problems Problem Type SNOMED Code ICD Code Onset Dates Problem Status W/U Status Risk Notes Problem Postconcussion syndrome (90447762) Concussion syndrome (F07.81) Active confirmed Vital Signs Blood pressure systolic 132 mm Hg 06/04/20 25 Blood pressure diastolic 88 mm Hg 025 Height 70.5 in 06/04/2025 Weight 232 lbs 06/04/2025 BMI 32.81 kg/m2 06/04/2025 weight is up 4 pounds since 05-03-25 Encounters Encounter Location Date Provider Diagnosis Temo Davis MD [address] [place] [address] [place] [phone] 06/04/2025 Temo Ryan Concussion syndrome F07.81 Assessments Encounter Date Diagnosis (ICD Code) Assessment Notes Treatment Notes Treatment Clinical Notes Section Notes 06/04/2025 Concussion syndrome (ICD-10 - F07.81) doing well with just a little headache. Plan Of Treatment Treatment Notes Assessment Notes Concussion syndrome doing well with just a little headache. Next Appt Details Provider Name:Temo P Chaparrita ier, 05/06/2026 07:15:00 AM, [address] [place] [address], [place] [address], [place], [place], [phone], Provider Name:Temo Rigoberto Chaparrita ier, 05/13/2026 10:30:00 AM, [address] [place] [address], [place] [address], [place], [place], [phone], Progress Notes * Salvatore BLUM JrDOB:1954 (70 yo M)Acc No.[id number]:06/04/2025 Progress Notes Patient: Joshua RANGELNATASHA Salvatore Hamm Provider: Hansel Davis MD :1955 A ge:70 Y S ex:Male Date:06/04/2025 Address:[address] [place], [place] [id number] Subjective: * Chief Complaints: * F /U ER visit after a fall * HPI: F all Risk: patient is a 70 yo male here for follow up of recent ER visit, fell and hit head on the ice. was slurring words and had nausea2 days later went to er. had ct of head and spine films. told him not to use his brain for 5 days. History H [address] you had any falls with injury in the past year? Y es 05-27-25 [place] fell backwards and hid his head. Did not go to the ER until 2 days later.. * ROS: G eneral/Constitutional: Denies C hills. D enies F atigue. D enies F ever. A dmits H eadache. E NT: Denies S ore throat. R espiratory: Denies C ough. D enies S hortness of breath at rest. D enies S hortness of breath with exertion. G astrointestinal: Denies D iarrhea. D enies N ausea. * Medical History: * Surgical History: * Hospitalization/Major Diagno stic Procedure: * Medications: T akingTadalafil 20 MG Tablet 1 tablet as needed Orally Once a day Albuterol Sulfate HFA 108 (90 Base) MCG/ACT Aerosol Solution INHALE 1 PUFF BY MOUTH EVERY 4 HOURS NEEDED Metoprolol Succinate ER 25 MG Tablet Extended Release 24 Hour 1 tablet Orally Once a day Tamsulosin HCl 0.4 MG Capsule TAKE 1 CAPSULE BY MOUTH EVERY DAY Escitalopram Oxalate 10 MG Tablet 1 tablet Orally Once a day Valsartan 80 MG Tablet 1 tablet Orally Once a day Taking Tadalafil 20 MG Tablet 1 tablet as needed Orally Once a day Taking Albuterol Sulfate HFA 108 (90 Base) MCG/ACT Aerosol Solution INHALE 1 PUFF BY MOUTH EVERY 4 HOURS NEEDED Taking Metoprolol Succinate ER 25 MG Tablet Extended Release 24 Hour 1 tablet Orally Once a day Taking Tamsulosin HCl 0.4 MG Capsule TAKE [...] Objective: * Vitals: H t: 70.5, Wt: 232, BMI:32.81, BP:132/88, Wt-k.23. weight is up 4 pounds since 05-03-25. * Examination: G eneral Examination: GENERAL APPEARANCE: a lert, well hydrated, in no distress.? HEAD: n ormocephalic. SKIN: g ood turgor. HEART: r egular rate and rhythm, no murmurs, rubs, gallops.? LUNGS: n o wheezes, rales, rhonchi, good air movement, clear to auscultation bilaterally. Assessment: * Assessment: 1. C oncussion syndrome - F07.81 (Primary) Plan: * Treatment: * Procedure Codes: * * Sign off status: Completed true * Provider: Hansel Davis MD Date: 08/05/2024 Generated for Gus back/Marisela/Virginiaransmitting on: 08/11/2024 03:28 AM EST History and Physical Notes * HPI (History of Present Illness) Category Sub-Category Detail Notes Category Not es Fall Risk History Have you had any falls with injury in the past year?: Yes 05[place]27-25 [place] and fell backwards and hid his head. Did not go to the ER until 2 days later. Examination Category Sub-Category Detail Notes Category Not es General Examination GENERAL APPEARANCE: alert, w ell hydrated, in no distress HEAD: normocephalic HEART: regular rate and rhy thm, no murmurs, rubs, gallops LUNGS: no wheezes, rales, r honchi, good air movement, clear to auscultation bilaterally SKIN: good turgor
--- NOTE | ~2025-06-10 | XR_ITS ---
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 Small adjacent fragments appear old/chronic frontal radiographs. Dorsal ossicle versus fracture fragments measuring 5 mm to 1 cm appear old/chronic given sclerosis. Multifocal osteoarthritis including partially imaged midfoot. No dislocation. Accessory ossicles dorsal to the talus. Calcaneal spur noted. IMPRESSION: 1. Ossicles and/or fragments adjacent to 1st metatarsophalangeal joint appear old/chronic given sclerosis. 2. Multifocal osteoarthritis by radiographs. This document has been electronically signed by: Joe Estrada MD on 06/10/2025 02:44:58
--- NOTE | ~2025-06-10 | CT_ITS ---
CLINICAL HISTORY: trauma, question of fx on xray CT left foot without contrast Comparison: Same day radiograph Findings: Normal alignment without acute fracture. Severe 1st metatarsophalangeal osteoarthritis with prominent dorsal osteophytes. Small number of up to 9 mm well corticated ossified foci in the vicinity (dorsal and medial aspects) of the 1st metatarsophalangeal joint and 1st lateral sesamoid due to heterotopic ossification +/-old fracture fragments. Small old fracture fragment at/in the vicinity of the lateral aspect of the 5th tarsometatarsal joint. Minimal dystrophic calcification No significant soft tissue abnormality. IMPRESSION: Normal alignment without acute fracture. Severe 1st metatarsophalangeal osteoarthritis with prominent dorsal osteophytes. Small number of up to 9 mm well corticated ossified foci in the vicinity (dorsal and medial aspects) of the 1st metatarsophalangeal joint and 1st lateral sesamoid due to heterotopic ossification +/-old fracture fragments. Small old fracture fragment at/in the vicinity of the lateral aspect of the 5th tarsometatarsal joint. This document has been electronically signed by: Ena Cruz MD on 06/10/2025 05:52:53
[2025-06-10 01:31] VITALS: BP 187/89; PULSE 80; RESP 18; TEMP 36.7; O2SAT 99; BMI 32.4
[2025-06-10 02:56] VITALS: BP 182/90; PULSE 59; RESP 16; TEMP 36.4; O2SAT 94
--- OUTSIDE RECORDS SUMMARY | 2025-06-10 03:28 | XMS_ITS | Patient Health Record ---
Author Organization 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 Section Notes: Nonsmoker; no alcohol Nonsmoker; no alcohol Nonsmoker; no alcohol Problems Problem Type SNOMED Code ICD Code Onset Dates Problem Status W/U Status Risk Notes Problem Screening for malignant neoplasm of colon (695691242) Encounter for screening for malignant neoplasm of colon (Z12.11) Active confirmed Problem History of adenomatous polyp of colon (761572589) History of adenomatous polyp of colon (Z86.010) Active confirmed Problem Blood in stool (019891392) Blood in stool (K92.1) Active confirmed Problem Preprocedural examination (912556486995308) Preprocedural examination (Z01.818) Active confirmed Problem Abnormal feces (480054278) Heme + stool (R19.5) Active confirmed Problem Diverticulosis of colon (151245760) Diverticulosis of colon (K57.30) Active confirmed Plan Of Treatment Pending Test Test Name Order Date Pathology 07/16/2021 Future Test Test Name Order Date COLONOSCOPY 2016 COLONOSCOPY 05/15/2020 COLONOSCOPY 06/18/2021 Insurance Providers Payer Name Payer Address Payer Phone Subscriber Number Group Number Insured Name Patient Relationship to Insured Coverage Start Date Coverage End Date [facility] [address] [place], [place] [id number] FRANK FONSECA Self - patient is the insured Medical (General) History Medical History History ICD Code Colonoscopy 03-27-2011--hype rplastic polyp, mild diverticulosis, small internal hemorrhoids; and in 2005 1 small tubular adenoma removed. Hyperlipidemia Denies DC,DM,CVA,Lung disease,renal dise ase Depression Abnormal EKG--seeing cardiology, Dr. Augusto carnes, on 02/20/16 Negative colonoscopy in 03/2016 Surgical History Surgery Date(Month/Year) Mouth and jaw surgery 1979
--- OUTSIDE RECORDS SUMMARY | 2025-06-10 03:29 | XMS_ITS | Encounter Summary ---
Author Organization [employer] Address [address] [place] [address] Care Team Providers Care Placement Director Name Role Phone Physician, No Pcp Primary Care Provider Unavaila ble Encounter Details Date Type Department Care Team (Late st Contact Info) Description 09/13/2024 Lab Requisition [facility] - Main Lab [address] [facility] [place] [address] Alonzo Robbins MD [address] [facility] [[email or web address]] [address] [place] [address] Elevated prostate specific antigen (PSA) [...] (09/12/2024) Final Diagnosis A. Prostate, Left Middle Mcleod Biopsy: -BENIGN PROSTATE TISSUE B. Prostate, Left Lateral Mcleod Biopsy: -BENIGN PROSTATE TISSUE C. Prostate, Left Middle Middle Biopsy: -BENIGN PROSTATE TISSUE D. Prostate, Left Lateral Middle Biopsy: -BENIGN PROSTATE TISSUE E. Prostate, Left Middle Base Biopsy: -BENIGN PROSTATE TISSUE F. Prostate, Left Lateral Base Biopsy: -BENIGN PROSTATE TISSUE G. Prostate, Right Middle Mcleod Biopsy: -BENIGN PROSTATE TISSUE H. Prostate, Right Lateral Mcleod Biopsy: -BENIGN PROSTATE TISSUE I. Prostate, Right Middle Middle Biopsy: -BENIGN PROSTATE TISSUE J. Prostate, Right Lateral Middle Biopsy: -BENIGN PROSTATE TISSUE K. Prostate, Right Middle Base Biopsy: -BENIGN PROSTATE TISSUE L. Prostate, Right Lateral Base Biopsy: -BENIGN PROSTATE TISSUE 09/19/2024 4:[address] [facility] at 1609 EDT Clinical Information Elevated PSA = 4.97 (04/25/24) R97.20 [id number] 09/19/2024 4:[address] [facility] Gross Description A. Prostate, Left Middle Mcleod Biopsy: Received, properly labeled, are two H and E stained slides and two unstained slides. B. Prostate, Left Lateral Mcleod Biopsy: Received, properly labeled, are two H [...] two unstained slides. G. Prostate, Right Middle Mcleod Biopsy: Received, properly labeled, are two H and E stained slides and two unstained slides. H. Prostate, Right Lateral Mcleod Biopsy: Received, properly labeled, are two H [...] unstained slides. /al 09/19/2024 4:[address] [facility] Disclaimer Unless otherwise specified, all tissue is 10% NB formalin fixed and paraffin embedded. Technical pathology services provided by [facility] at [address] [place] [address] [address], [place] [address] (CLIA #[id number]/ Asiya Wei MD, Slab Inspector) 09/19/2024 4:09 PM EDT [facility] Tissue Prostate / [...] Robbins MD LAB PATHOLOGY ORDERABLES Final Result [facility] [address] [place] [address], documented in this encounter Visit Diagnoses Diagnosis Elevated prostate specific antigen (PSA) documented in this encounter Care Teams Placement Director Relationship Specialty Start Date End Date Physician, No Pcp PCP - General 09/13/24 documented as of this encounter
--- OUTSIDE RECORDS SUMMARY | 2025-06-10 03:29 | XMS_ITS | Clinical Summary ---
Author Organization [address] [facility] Address [address] [place] [address] Phone Care Team Providers Care Lead Section Supervisor Name Role Phone Physician, No Pcp Primary [...] age to complete this topic Insurance [facility]IC[facility] Care Teams Lead Section Supervisor Relationship Specialty Start Date End Date Physician, No Pcp PCP - General 09/13/24
--- OUTSIDE RECORDS SUMMARY | 2025-06-10 03:30 | XMS_ITS | Patient Health Record ---
Author Organization Temo Davis MD Address [address] [place], [place] [id number] Care Team Providers Care Cable Television Program Director Name Role Phone Temo Davis Primary Care Provider Allergies Allergen (clinical drug ingredient) Drug/Non Drug Allergy documented on EMR Reaction Allergy Type Onset Date Status hallothane (uncoded) cardiac arrest Allergy Active Results Component Value Reference Range Notes Hemoglobin A1c Reviewed date:08/18/2024 09:54:18 AM Interpretation: Performing Lab: Notes/Report: Hemoglobin A1c 5.2 Complete Blood Count Auto Di ff Reviewed date:04/27/2025 12:39:17 PM Interpretation: Performing Lab:[facility], [address] [place] [phone] Notes/Report: White Blood Count 8.0 4.8-10.8 X10*3/uL [...] 0.0 0.0-0.2 /100WBC Neutrophils Absolute Auto 4.6 2.0-8. 3 x10*3/uL Imm Gran Abs Auto 0.04 0.00-0.03 X10*3/uL Lymphocytes Absolute Auto 2.7 1.2-4. 9 X10*3/uL Monocytes Absolute Auto 0.6 0.1-1.2 X10*3/uL Eosinophils Absolute Auto 0.1 0.0-0. 4 X10*3/uL Basophils Absolute Auto 0.0 0.0-0.2 X10*3/uL NRBC Abs Auto 0.000 0.0-0.012 X10*3/uL Lipid Panel Reviewed date:04/27/2025 12:18:43 PM Interpretation: Performing Lab:[address] [phone] Notes/Report: Triglycerides 160 <150 mg/dL Desirable Triglyceride: [...] (Free>4and<10) Reviewed date:05/04/2025 11:07:25 AM Interpretation:05-03-2025 Performing Lab:[facility], [address] [place] [phone] Notes/Report: PSA,Total (Free>4and<10) 5.01 0.00-4.00 ng/mL PSA methodology: Person Alinity i Chemiluminescent Microparticle Immunoassay (CMIA) Microalbumin, Random Reviewed date:04/27/2025 12:37:53 PM Interpretation: Performing Lab:[facility], [address] [place] [phone] Notes/Report: Creatinine Urine 136.23 Microalbumin Urine 7.0 Microalbum/Creatinine Ratio Ur 5.1 <30 ug/mg cr Albumin/Creatinine Ratio Reference Ranges: Normal: < 30 ug/mg creatinine Microalbuminuria: 30 - 300 ug/mg creatinine Clinical Albuminuria: > 300 ug/mg creatinine Hemoglobin A1c Reviewed date:04/27/2025 12:19:11 PM Interpretation: Performing Lab:[facility], [address] [place] [phone] Notes/Report: Hemoglobin A1c % 5.6 <6.0 % [...] average glucose, using the formula of the H3F-Kfhurrv Average Glucose study (ADAG), Diabetes Care, Vol.31,#8, Jan. 2007 UA ClnCatch+Micro w/rflx Cul t Reviewed date:04/27/2025 12:50:03 PM Interpretation: Performing Lab:[facility], [address] [place] [phone] Notes/Report: Urine, Clean Catch Color Urine Yellow Appearance Urine Clear PH 6.0 5.0-9.0 Glucose Urine UA Negative Negative mg/dL Urine Blood Negative Negative Specific [place] - Urine 1.025 1.005-1.025 Urine Protein Negative [...] Panel Reviewed date:12/05/2024 12:25:43 PM Interpretation: Performing Lab:[address] [phone] Notes/Report: Triglycerides 189 <150 mg/dL Desirable Triglyceride: [...] Panel Reviewed date:04/27/2025 12:26:11 PM Interpretation: Performing Lab:[address] [address] Notes/Report: Sodium 144 135-145 mmol/L Potassium 4.4 [...] Total Reviewed date:05/04/2025 11:07:11 AM Interpretation:05-03-2025 Performing Lab:[facility], [address] [place] [phone] Notes/Report: Prostate Specific Ag Total 4.9 < OR = 4.0 ng/mL Percent Free Prostate Spec Ag 18 >25 % (calc) PSA(ng/mL) Free PSA(%) Estimated(x) Probability of Cancer(as%) 0-2.5 (*) Approx. 1 2.6-4.0(1) 0-27(2) 24(3) 4.1-10(4) 0-10 56 11-15 28 16-20 20 21-25 16 >or =26 8 >10(+) N/A >50 References:(1)Shila ledbetter et al.:Urology 60: 469-474 (2001) (2)Mika et al.:J.Urol 168: 922-925 (2001) Free PSA(%) Sensitivity(%) Specificity(%) < or = 25 85 19 < or = 30 93 9 (3)Catalona et al.:GREER 277: 2684-3571 (1996) (4)Catalona et al.:GREER 279: 1853-8618 (1997) (x)These estimates vary with age, ethnicity, [...] mind. PSA was performed using the Deedee Rosharon Immunoassay method. Values obtained from different assay methods cannot be used interchangeably. PSA levels, regardless of value, should not be interpreted as absolute evidence of the presence or absence of disease. THIS TEST WAS PERFORMED AT: [facility] [address] [place] [phone] EUGENIO REYNOLDS MD Free Prostate Spec Ag 0.9 CT cervical spine wo con Reviewed date:05/29/2025 10:53:27 AM Interpretation: Performing Lab: Notes/Report: [address] [address] [address] Scan Report Signed Patient: Salvatore Blum Jr MR#: [id number] : 1955 Acct:[id number] Age/Sex: 70 / M ADM Date: 05/29/25 Loc: HO.ED Attending Dr: Ordering Physician: Kim Horn DO Date of Service: 05/29/25 Procedure(s): CT cervical spine wo IV con Accession Number(s): [id number] cc: Temo Davis MD; Kim Horn DO Report Number: [id number]: Total DLP = 570.00 mGy-cm Reason for [...] by: Joe Araiza MD 05/29/2025 10:02 AM [facility] Dictated By: Joe Fortune MD Signed By: <Electronically signed by Joe Campuzano MD in OV> 05/29/25 1002 DD/ 0938 TD/TT: 05/29/25 0943 Palletiser Operator: [address] [address] [address] Scan Report Signed Patient: Shady Blum Jr MR#: [id number] : 1955 Acct:[id number] Age/Sex: 70 / M ADM Date: 05/29/25 Loc: HO.ED Attending Dr: Ordering Physician: Kim Horn DO Date of Service: 05/29/25 Procedure(s): CT cer vical spine wo IV con Accession Number(s): [id number] cc: Temo Davis MD; Kim Horn DO Report Number: [id number]: Total DLP = 570.00 mGy-cm Reason for Exam: fal l injury EXAMINATION: CT HEAD WITHOUT CONTRAST CLINICAL INFORMATION: fall injury COMPARISON: None available. TECHNIQUE: Contiguous axial callie ging was performed from the skull base to vertex without intravenous administration of contrast. This CT examination was performed using dose optimization techniques as appropriate, various ly including the following: *Automated exposure control *Adjustment of mA an d/or kV according to patient size (this includes [...] Tympanic cavities and mastoid cells are aerated. C T/CT cervical spine wo IV con IMPRESSION: No acute fracture, b gena calvarium. No acute intracrania l hemorrhage. Bifrontal biparietal lobes atrophy. EXAMINATION: CT CERVICAL SPINE WI THOUT CONTRAST CLINICAL INFORMATION: Status post fall. Injury. COMPARISON: None available. TECHNIQUE: Contrast axial image s through the cervical spine using 3 mm collimation with bone and soft t issue algorithm. Sagittal and coronal reformatted images acquired. This CT examination was performed using dose optimization techniques as appropriate, various ly including the following: *Automated exposure control *Adjustment of mA an d/or kV according to patient size (this includes [...] a 17 mm lobulated hypodensity in the r ight midline thyrohyoid ligament. IMPRESSION: Multilevel cervical spondylosis pronounced at C5-6 and to a lesser extent C4-5 and C6-7 without acute fracture or trauma-related listhesis. 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 Fleischner guideline s were followed. Electronically cruzito d by: Joe Araiza MD 05/29/2025 10:02 AM [facility] Dictated By: Joe Stone MD Signed By: <Electronically signed by Joe Campuzano MD in OV> 05/29/25 1002 DD/ 0938 TD/TT: 05/29/25 0943 Palletiser Operator: CT head/brain wo con Reviewed date:05/29/2025 10:52:49 AM Interpretation: Performing Lab: Notes/Report: [place] [address] [address] Scan Report Signed Patient: Salvatore Blum Jr MR#: [id number] : 1955 Acct:[id number] Age/Sex: 70 / M ADM Date: 05/29/25 Loc: HO.ED Attending Dr: Ordering Physician: Kim Horn DO Date of Service: 05/29/25 Procedure(s): CT head/brain wo IV con Accession Number(s): [id number] cc: Temo Davis MD; Kim Horn DO Report Number: [id number]: Total DLP = 715.00 mGy-cm Reason for [...] by: Joe Araiza MD 05/29/2025 10:02 AM [facility] Dictated By: Joe Fortune MD Signed By: <Electronically signed by Joe Campuzano MD in OV> 05/29/25 1002 DD/ 0938 TD/TT: 05/29/2543 Palletiser Operator: [place] [address] [address] Scan Report Signed Patient: Shady Blum Jr MR#: [id number] : 1955 Acct:[id number] Age/Sex: 70 / M ADM Date: 05/29/25 Loc: HO.ED Attending Dr: Ordering Physician: Kim Horn DO Date of Service: 05/29/25 Procedure(s): CT head/brain wo IV con Accession Number(s): [id number] cc: Temo Davis MD; Kim Horn DO Report Number: [id number]: Total DLP = 715.00 mGy-cm Reason for Exam: hea d injury EXAMINATION: CT HEAD WITHOUT CONTRAST CLINICAL INFORMATION: fall injury COMPARISON: None available. TECHNIQUE: Contiguous axial callie ging was performed from the skull base to vertex without intravenous administration of contrast. This CT examination was performed using dose optimization techniques as appropriate, various ly including the following: *Automated exposure control *Adjustment of mA an d/or kV according to patient size (this includes [...] Tympanic cavities and mastoid cells are aerated. C T/CT head/brain wo IV con IMPRESSION: No acute fracture, b gena calvarium. No acute intracrania l hemorrhage. Bifrontal biparietal lobes atrophy. EXAMINATION: CT CERVICAL SPINE WI THOUT CONTRAST CLINICAL INFORMATION: Status post fall. Injury. COMPARISON: None available. TECHNIQUE: Contrast axial image s through the cervical spine using 3 mm collimation with bone and soft t issue algorithm. Sagittal and coronal reformatted images acquired. This CT examination was performed using dose optimization techniques as appropriate, various ly including the following: *Automated exposure control *Adjustment of mA an d/or kV according to patient size (this includes [...] a 17 mm lobulated hypodensity in the r ight midline thyrohyoid ligament. IMPRESSION: Multilevel cervical spondylosis pronounced at C5-6 and to a lesser extent C4-5 and C6-7 without acute fracture or trauma-related listhesis. 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 Fleischner guideline s were followed. Electronically cruzito d by: Joe Araiza MD 05/29/2025 10:02 AM [facility] Dictated By: Joe Stone MD Signed By: <Electronically signed by Joe Campuzano MD in OV> 05/29/25 1002 DD/ TD/TT: 05/29/25942 Palletiser Operator: XR thoracic spine 3V Reviewed date:05/29/2025 10:54:47 AM Interpretation: Performing Lab: Notes/Report: [address] [address] XRay Report Signed Patient: Salvatore Blum Jr MR#: [id number] : 1955 Acct:[id number] Age/Sex: 70 / M ADM Date: 05/29/25 Loc: HO.ED Attending Dr: Ordering Physician: Kim Horn DO Date of Service: 05/29/25 Procedure(s): XR thoracic spine 3V Accession Number(s): [id number] cc: Temo Davis MD; Kim Horn DO [...] Joe Campuzano MD in OV> 05/29/2552 DD/ 3 TD/TT: 05/29/25946 Palletiser Operator: [place] [address] XRay Report Signed Patient: Shady Blum Jr MR#: [id number] : 1955 Acct:[id number] Age/Sex: 70 / M ADM Date: 05/29/25 Loc: HO.ED Attending Dr: Ordering Physician: Kim Horn DO Date of Service: 05/29/25 Procedure(s): XR tho racic spine 3V Accession Number(s): [id number] cc: Temo Davis MD; Kim Horn DO Reason for Exam: fall EXAMINATION: XR LUMBOSACRAL SPINE CLINICAL INFORMATION: fall COMPARISON: None available. TECHNIQUE: AP and lateral views. FINDINGS: Multilevel endplate sclerosis marginal osteophyte formation and decreased interverte bral disc height throughout the axial skeleton. Grade 1 retrolisthes is L2-3. Facet joint hypertro phy at L4-5 and L5-S1. No lytic or blastic lesions. No acute cortical disruption. Vascular calcificati ons, aorta.. X R/XR thoracic spine 3V IMPRESSION: Multilevel spondylos is resulting in grade 1 retrolisthesis L2-3. No gross acute fracture. EXAMINATION: XR THORACIC SPINE CLINICAL INFORMATION: fall COMPARISON: None available. TECHNIQUE: AP lateral and swimm er's projection FINDINGS: Multilevel marginal osteophyte formation and endplate sclerosis and decreased interverte bral disc height throughout the axial skeleton including the C5-6. No acute cortical disruption or malalignment. Mild S-shaped curvature. No lytic or blastic lesions. IMPRESSION: Multilevel spondylos is without acute fracture or trauma-related listhesis. Electronically cruzito d by: Joe Araiza MD 05/29/2025 09:52 AM EST Dictated By: Joe Stone MD Signed By: <Electronically signed by Joe Campuzano MD in OV> 05/29/2552 DD/ 3 TD/TT: 05/29/25946 Palletiser Operator: XR lumbar spine 2-3V Reviewed date:05/29/2025 10:54:20 AM Interpretation: Performing Lab: Notes/Report: [address] [address] XRay Report Signed Patient: Salvatore Blum Jr MR#: [id number] : 1955 Acct:[id number] Age/Sex: 70 / M ADM Date: 05/29/25 Loc: HO.ED Attending Dr: Ordering Physician: Kim Horn DO Date of Service: 05/29/25 Procedure(s): XR lumbar spine 2-3V Accession Number(s): [id number] cc: Temo Davis MD; Kim Horn DO [...] Campuzano MD in OV> 05/29/25 0952 DD/ 0944 TD/TT: 05/29/25 0947 Palletiser Operator: [address] [address] XRay Report Signed Patient: Shady Blum Jr MR#: [id number] : 1955 Acct:[id number] Age/Sex: 70 / M ADM Date: 05/29/25 Loc: HO.ED Attending Dr: Ordering Physician: iKm Horn DO Date of Service: 05/29/25 Procedure(s): XR lum bar spine 2-3V Accession Number(s): [id number] cc: Temo Davis MD; Kim Horn DO Reason for Exam: fall EXAMINATION: XR LUMBOSACRAL SPINE CLINICAL INFORMATION: fall COMPARISON: None available. TECHNIQUE: AP and lateral views. FINDINGS: Multilevel endplate sclerosis marginal osteophyte formation and decreased interverte bral disc height throughout the axial skeleton. Grade 1 retrolisthes is L2-3. Facet joint hypertro phy at L4-5 and L5-S1. No lytic or blastic lesions. No acute cortical disruption. Vascular calcificati ons, aorta.. X R/XR lumbar spine 2-3V IMPRESSION: Multilevel spondylos is resulting in grade 1 retrolisthesis L2-3. No gross acute fracture. EXAMINATION: XR THORACIC SPINE CLINICAL INFORMATION: fall COMPARISON: None available. TECHNIQUE: AP lateral and swimm er's projection FINDINGS: Multilevel marginal osteophyte formation and endplate sclerosis and decreased interverte bral disc height throughout the axial skeleton including the C5-6. No acute cortical disruption or malalignment. Mild S-shaped curvature. No lytic or blastic lesions. IMPRESSION: Multilevel spondylos is without acute fracture or trauma-related listhesis. Electronically cruzito d by: Joe Araiza MD 05/29/2025 09:52 AM EST Dictated By: Joe Stone MD Signed By: <Electronically signed by Joe Campuzano MD in OV> 05/29/2552 DD/ TD/TT: 05/29/25946 Palletiser Operator: XR foot LT min 3V (Not yet r eviewed by provider) Interpretation: Performing Lab: Notes/Report: [address] [place] [address] XRay Report Signed Patient: Salvatore Blum Jr MR#: [id number] : 1955 Acct:[id number] Age/Sex: 70 / M ADM Date: 06/10/25 Loc: HO.ED Attending Dr: Ordering Physician: Generic ED Physician Date of Service: 06/10/25 Procedure(s): XR foot LT min 3V Accession Number(s): [id number] cc: Temo Davis MD; Generic ED Physician Reason for Exam: fal/pain/swelling bruising 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 Small adjacent fragments appear old/chronic frontal radiographs. Dorsal ossicle versus fracture fragments measuring 5 mm to 1 cm appear old/chronic given sclerosis. Multifocal osteoarthritis including partially imaged midfoot. No dislocation. Accessory ossicles dorsal to the talus. Calcaneal spur noted. IMPRESSION: 1. Ossicles and/or fragments adjacent to 1st metatarsophalangeal joint appear old/chronic given sclerosis. 2. Multifocal osteoarthritis by radiographs. This document has been electronically signed by: Joe Estrada MD on 06/10/2025 02:44:58 Dictated By: oJe Estrada MD Signed By: <Electronically signed by Joe Estrada MD in OV> 06/10/25245 DD/ 3 TD/TT: 06/10/25243 Palletiser Operator: [address] [address] XRay Report Signed Patient: Shady Blum Jr MR#: [id number] : 1955 Acct:[id number] Age/Sex: 70 / M ADM Date: 06/10/25 Loc: HO.ED Attending Dr: Ordering Physician: Generic ED Physician Date of Service: 06/10/25 Procedure(s): XR aminta t LT min 3V Accession Number(s): [id number] cc: Temo Davis MD; Generic ED Physician Reason for Exam: fal/pain/swelling bruising 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 Small adjacent fragments a ppear old/chronic frontal radiographs. Dorsal ossicle versus fracture frag ments measuring 5 mm to 1 cm appear old/chronic given sclerosis. Multifocal osteoarth ritis including partially imaged midfoot. No dislocation. Accessory ossicles d orsal to the talus. Calcaneal spur noted. IMPRESSION: 1. Ossicles and/or fragments adjacent to 1st metatarsophalangeal joint appear old/chronic g iven sclerosis. 2. Multifocal osteoarthritis by radiographs. This document has be en electronically signed by: Joe Estrada MD on 06/10/2025 02:44:58 Dictated By: Rajinder Estrada MD Signed By: <Electronically signed by Joe Estrada MD in OV> 06/10/25245 DD/ 3 TD/TT: 06/10/25243 Palletiser Operator: Reason For Referral No Information Medications Medication SIG (Take, Route, Frequency, Duration) Notes Start Date End Date Status Tadalafil 20 MG 1 tablet as needed Orally Once a day Active Valsartan 80 MG 1 tablet Orally Once a day 02/26/2025 Active ProAir HFA 108 (90 Base) MCG/ACT 2 puffs as needed Inhalation every 4 hrs for 30 days 09/18/2013 Not-Taking Tamsulosin HCl 0.4 MG TAKE 1 CAPSULE BY MOUTH EVERY DAY Active Escitalopram Oxalate 10 MG 1 tablet Orally Once a day Active Albuterol Sulfate HFA 108 (90 Base) MCG/ACT INHALE 1 PUFF BY MOUTH EVERY 4 HOURS NEEDED for 33 Active Metoprolol Succinate ER 25 MG 1 tablet Orally Once a day for 90 days 05/03/2025 Active Immunizations Vaccine Route Administration Date Status Comme nts Flu Vaccine Unknown 04/23/2014 Administered [employer] Flu Vaccine Unknown 03/20/2015 Administered Work [employer] Flu Vaccine IM Intramuscular 02/24/2016 Administered pt marina d the vaccine at [facility] PPSV23 (Pnemovax) IM Intramuscular 02/08/2017 Administered Fluarix Quadrivalent IM Intramuscular 02/18/2017 Administe red Shingles IM Intramuscular 03/01/2017 Administered Fluarix Quadrivalent IM Intramuscular 02/21/2018 Administe red Shingrix IM Intramuscular 02/28/2018 Administered TDaP IM Intramuscular 05/01/2018 Administered pt was given the vaccine at [facility] on [address] in [place]. Shingrix IM Intramuscular 05/16/2018 Administered Tetanus Unknown 05/01/2018 Administered Fluarix Quadrivalent IM Intramuscular 02/20/2019 Administe red Influenza High Dose IM Intramuscular 02/20/2020 Administer ed Covid Vaccine Unknown 08/07/2020 Administered Moderna SARS-COV-2 Moderna Unknown 09/04/2020 Administered Influenza High Dose Unknown 02/15/2021 Administered Bobby lemons's SARS-COV-2 Moderna Unknown 04/07/2021 Administered SARS-COV-2 Moderna Unknown 09/25/2021 Administered Jose paul's Influenza High Dose IM Intramuscular 02/13/2022 Administer [...] Problem Status W/U Status Risk Notes Problem 845573700 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) Active confirmed Problem 32124906 Prostatism (N40.0) Active confirmed Problem 107215936 Tubular adenoma of colon (D12.6) Active confirmed Problem 90774540 Essential hypert ension (I10) Active confirmed Problem 7583313 Prediabetes (R73.09) Active confirmed Problem 179073859 History of basal cell cancer (Z85.828) Active confirmed Problem 077537449 Asthmatic bronch itis, mild intermittent, uncomplicated (J45.20) Active confirmed Problem 456028812 PAC (premature a trial contraction) (I49.1) Active confirmed Problem 97691585 Dysthymia (F34.1) Active confirmed Problem 609228253 Pure hypercholesterolemia (E78.00) Active confirmed Problem Obstructive sleep apnea syndrome (23706178) CAMILLA (obstructive sleep apnea) (G47.33) Active confirmed Problem 70229654908663 History of squam ous cell carcinoma (Z85.89) Active confirmed Problem 981117402 Abnormal finding on chest xray (R93.89) Active confirmed Problem 53123500 Bigeminy (I49.8) Active confirmed Problem 50894376 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 Problem Postconcussion syndrome (07798356) Concussion syndrome (F07.81) Active confirmed Vital Signs Blood pressure diastolic 88 mm Hg 06/04/2025 orlin ght is up 4 pounds since 05-03-25 Height 70.5 in 06/04/2025 weight is up 4 pounds since 05-03-25 Blood pressure systolic 132 mm Hg 06/04/2025 weig ht is up 4 pounds since 05-03-25 Weight 232 lbs 06/04/2025 weight is up 4 pounds since 05-03-25 BMI 32.81 kg/m2 06/04/2025 weight is up 4 pounds since 05-03-25 Encounters Encounter Location Date Provider Diagnosis Temo Davis MD [address] [place] [id number] 04/27/2025 Temo Davis Prediabetes R73.09 ; Pure hypercholesterolemia E78.00 ; Essential hypertension I10 and Prostatism N40.0 Temo Davis MD [address] [place] [id number] 07/24/2024 Temo Davis Purulent bronchitis J41.1 Temo Davis MD [address] [place] [address] [id number] 08/18/2024 Temo Davis Prediabetes R73.09 a nd CAMILLA (obstructive sleep apnea) G47.33 Temo Davis MD [address] [place] [id number] 02/19/2025 Temo Davis PAC (premature atria l contraction) I49.1 ; Lethargic R53.83 and Essential hypertension I10 Temo Davis MD [address] [place] [id number] 05/03/2025 Temo Davis Essential hypertensi on I10 ; Pure hypercholesterolemia E78.00 ; History of basal cell cancer Z85.828 ; Skin lesion L98.9 ; Prediabetes R73.09 ; Dysthymia F34.1 ; Prostatism N40.0 ; Colon cancer screening Z12.11 and Depression screen Z13.31 Temo Davis MD [address] [place] [id number] 06/04/2025 Temo Davis Concussion syndrome F07.81 Temo Davis MD [address] [place] [address] [id number] 12/25/2024 Temo Davis MD [address] [place] [address] [id number] 02/13/2025 Temo Davis PAC (premature atria l contraction) I49.1 Temo Davis MD [address] [place] [address] [id number] 05/31/2025 Temo Davis MD [address] [place] [address] [id number] 02/23/2025 Temo Davis MD [address] [place] [id number] 03/25/2025 Temo Davis Essential hypertensi on I10 [...] E78.00) well controlled, will continue current regiment 06/04/2025 Concussion syndrome (ICD-10 - F07.81) doing well with just a little headache. 02/13/2025 PAC (premature atria l contraction) (ICD-10 [...] 04/28/2022 Holter monitor 07/26/2015 ECHO 04/28/2022 Comprehensive [place]. Panel Fast ECG 30 day event monitor 01/16/2022 XR foot LT min 3V 06/10/2025 Next Appt Details Provider Name:Temo estrada, 05/06/2026 07:15:00 AM, [address] [place] [address], Suite [facility], [place], [place], [phone], Provider Name:Temo estrada, 05/13/2026 10:30:00 AM, [address] [place] [address], Suite [facility], [place], [place], [phone], Insurance Providers Payer Name Payer Address Payer Phone Subscriber Number Group Number Insured Name Patient Relationship to Insured Coverage Start Date Coverage End Date [employer] [address] [place] [address] [id number] Salvatore Blum Self - patient is the insured [employer] [address] [place] [phone] [id number] Salvatore Blum Self - patient is the insured Medical (General) History Medical History History ICD Code colonoscopy 2010. due in 5 y ears; colonoscopy 03/19/[address] Ulloa - repeat 5 years; 07/16/21 colonoscopy Artemio repeat 5yrs HX guaiac positive stools HX abnormal EKG
--- NOTE | 2025-06-10 04:19 | ED.GENADULT ---
HPI - General Adult General Chief complaint: Extremity Injury, Lower Stated complaint: foot inj from fall Time Seen by Provider: 06/10/25 04:05 Source: patient Limitations: no limitations History of Present Illness ED Provider: Nelly Baptiste PA-C HPI narrative: 70-year-old male with a history of hypertension, hyperlipidemia, BPH, known coronary artery disease, prior cardiac arrest ( due to allergy of halothane during surgery), CAMILLA, presents with left great toe pain. Patient states he was snow blowing his driveway, when he twisted the foot. Now with significant pain swelling and bruising to the left great toe. Related Data Home Medications ?Medication ?Instructions ?Recorded ?Confirmed albuterol sulfate 90 mcg/actuation 2 puff inhalation Q4H PRN 05/27/22 12/04/24 aerosol inhaler tamsulosin 0.4 mg capsule 0.4 mg PO DAILY 05/27/22 12/04/24 escitalopram oxalate 10 mg tablet 10 mg PO DAILY 03/18/23 12/04/24 metoprolol succinate 25 mg 25 mg PO DAILY 08/10/24 12/04/24 tablet,extended release 24 hr Previous Rx's ?Medication ?Instructions ?Recorded atorvastatin 20 mg tablet 20 mg PO BEDTIME #90 tabs 04/16/25 ketorolac 10 mg tablet 10 mg PO Q6H PRN pain #20 tabs 06/10/25 oxycodone 5 mg tablet 5 mg PO Q8H PRN pain, severe #12 06/10/25 tabs Allergies Allergy/AdvReac Type Severity Reaction Status Date / Time Halothane Allergy Unknown cardiac Uncoded 06/10/25 01:33 arrest Review of Systems Review of Systems: Yes all other systems are reviewed and are negative Constitutional: Constitutional: Denies fatigue and Denies fever(s) Musculoskeletal: Musculoskeletal: Reports arthralgias and Reports joint swelling Endocrine: Endocrine: Denies fatigue PMFSH Past Medical History Attestation statement: The following information was validated with the patient. Medical History Cardiac arrest Depression Elevated cholesterol Surgical History H/O colonoscopy Family History Family History Father Prostate CA Mother Dementia Social History Social History Alcohol intake: never Patient Tobacco Use Status: Former Tobacco user Advance Directives: No Advance Directives Information Provided: Yes Physical Exam ED Vital Signs: Vital Signs - 24 hr 06/10/25 01:31 06/10/25 02:56 Temperature 98.1 F 97.5 F Pulse Rate 80 59 Respiratory Rate 18 16 Blood Pressure 187/89 H 182/90 H Pulse Oximetry 99 94 Oxygen Delivery Method Room Air Nasal Cannula BMI result Body Mass Index 32.4 Const Other: Alert well-appearing Orientation/consciousness: patient oriented x3 Resp Effort & Inspection: normal respiratory effort Cardio Other: Normal peripheral perfusion Skin Other: Warm dry no rash Neuro General: patient oriented x3, gait normal, no focal motor deficits and CN's II-XI intact bilaterally Extrem Other: Swelling and ecchymosis over the dorsum of the left foot in relation to the left great toe, tender to palpation no deformity Psych Other: Cooperative Medications Administered Discontinued Medications Generic Name Dose Route Start Last Admin Trade Name Freq PRN Reason Stop Dose Admin Ketorolac Tromethamine 15 mg 06/10/25 04:24 06/10/25 05:03 Ketorolac Tromethamine 15 Mg/Ml Vial IM 06/10/25 04:25 15 mg ONCE ONE Administration Oxycodone HCl 5 mg 06/10/25 04:24 06/10/25 05:02 Oxycodone Hcl Immed Release 5 Mg Tablet PO 06/10/25 04:25 5 mg ONCE ONE Administration Medical Decision Making Medical Decision Making MDM Narrative: 70-year-old male with a history of hypertension, hyperlipidemia, BPH, known coronary artery disease, prior cardiac arrest ( due to allergy of halothane during surgery), CAMILLA, presents with left great toe pain. Patient states he was snow blowing his driveway, when he twisted the foot. Now with significant pain swelling and bruising to the left great toe. No relevant chronic issues History: Per patient I have considered the following differential diagnoses: Fracture, dislocation, contusion, sprain Plan: X-ray ordered from triage, it is essentially indeterminate, there was question of fracture fragments versus chronic healing wound. He does have significant arthritic changes as well. His distribution of discomfort is exactly where the area in question is on the x-ray, obtaining a CT scan. Medicating with Toradol and oxycodone. We will order a postop shoe and crutches for when the patient is discharged. 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 Small adjacent fragments appear old/chronic frontal radiographs. Dorsal ossicle versus fracture fragments measuring 5 mm to 1 cm appear old/chronic given sclerosis. Multifocal osteoarthritis including partially imaged midfoot. No dislocation. Accessory ossicles dorsal to the talus. Calcaneal spur noted. IMPRESSION: 1. Ossicles and/or fragments adjacent to 1st metatarsophalangeal joint appear old/chronic given sclerosis. 2. Multifocal osteoarthritis by radiographs. CT left foot:IMPRESSION: Normal alignment without acute fracture. Severe 1st metatarsophalangeal osteoarthritis with prominent dorsal osteophytes. Small number of up to 9 mm well corticated ossified foci in the vicinity (dorsal and medial aspects) of the 1st metatarsophalangeal joint and 1st lateral sesamoid due to heterotopic ossification +/-old fracture fragments. Small old fracture fragment at/in the vicinity of the lateral aspect of the 5th tarsometatarsal joint. Differential Diagnosis Differential Diagnoses: The differential diagnosis associated with the presentation includes See MDM Admission/Observation Consideration of admission/observation: Escalation of care including admission/observation considered Not applicable Radiology Impression Discussion of test interpretation with radiology: I have reviewed the radiologist's reading. Discharge Plan Discharge Clinical Impression: Sprain of foot, left Qualifiers: Encounter type: initial encounter Qualified Code(s): S93.602A - Unspecified sprain of left foot, initial encounter Patient Disposition: Home, Self-Care Instructions: Foot Sprain (ED), P.R.I.C.E. Treatment (ED), Post Surgical Shoe (ED) Additional Instructions: You do not have an acute fracture. You have significant arthritic changes in the foot, and you sustained a sprain. See home care instructions. Take the ketorolac as directed, this is an anti-inflammatory take it with food. Use the oxycodone as needed for further pain. This medication can be habit-forming and can cause constipation. You can use [id number] Colace daily, to help prevent constipation. I am providing you with a contact for the podiatry service, you can schedule a follow up appointment to discuss options for your significant arthritis. Prescriptions: New oxycodone 5 mg tablet 5 mg PO Q8H PRN (Reason: pain, severe) Qty: 12 0RF Rx Instructions: Partial Fill upon patient request. ketorolac 10 mg tablet 10 mg PO Q6H PRN (Reason: pain) Qty: 20 0RF Rx Instructions: maximum total duration of 5 days from all oral, intranasal, or parenteral formulations, patient received an intramuscular dose of Toradol here in the emergency room No Action atorvastatin 20 mg tablet 20 mg PO BEDTIME Qty: 90 3RF tamsulosin 0.4 mg capsule 0.4 mg PO DAILY albuterol sulfate 90 mcg/actuation HFA aerosol inhaler 2 puff inhalation Q4H PRN escitalopram oxalate 10 mg tablet 10 mg PO DAILY metoprolol succinate 25 mg tablet extended release 24 hr 25 mg PO DAILY Referrals: Halie Gurrola DPM [Social Work Case Manager, Podiatry] Referral Note: left foot sprain/significant arthritis Print Language: Vietnamese
[2025-06-10] MEDS: oxyCODONE HCl Immed Release 5 MG TABLET PO (05:02)
[2025-06-10 06:15] VITALS: BP 170/89; PULSE 59; RESP 16; TEMP 36.4; O2SAT 94
== END 2025-06-10 06:15 | disposition home or self-care (01) ==
PROVIDERS: Emergency Provider Emergency Medicine; PCP Internal Medicine
DX: S93.602A Unspecified sprain of left foot, initial encounter (principal); S90.32XA Contusion of left foot, initial encounter; X50.1XXA Overexertion from prolonged static or awkward postures, initial encounter; Y93.H9 Activity, other involving exterior property and land maintenance, building and construction; Y92.008 Other place in unspecified non-institutional (private) residence as the place of occurrence of the external cause; R60.0 Localized edema; I10 Essential (primary) hypertension; E78.5 Hyperlipidemia, unspecified; I25.10 Atherosclerotic heart disease of native coronary artery without angina pectoris; Z79.899 Other long term (current) drug therapy; Z87.891 Personal history of nicotine dependence
CPT/HCPCS: 73630; 73700; 96372; 99283; 99284; J1885

== ENCOUNTER → 2025-06-10 01:59 | Outpatient (BNV) | payer MEDICARE, OTHER, SELFPAY | PROVIDERS: PCP Internal Medicine; Visit Provider Radiology Neuroradiology | DX: M19.072 Primary osteoarthritis, left ankle and foot (principal) | CPT/HCPCS: 73630 ==